=== PATIENT | female | born 1960 | race African-American/Black ===

== ENCOUNTER 2017-04-25 16:10 | Inpatient (IN) | payer MEDICAID, OTHER ==
[~2017-04-25] VITALS: Ht 154.9 cm; Wt 87.7 kg
[2017-04-25 16:10] VITALS: BP 185/75; PULSE 118; RESP 16; TEMP 99; O2SAT 100
[~2017-04-25 16:10] MED LIST: ATOR40TA49 PO; BENZ1TAB PO; CLOZ100T3 PO; COMBAER INH; DOCU1CAP39 PO; GLIP10TA6 PO; HYDR50TA94 PO; LISI-360 PO; NORV5TAB PO; OMEP20TA PO; PANT20 PO; PRAV80 PO; RISP2TAB2 PO; RISP50P IM
[2017-04-25] MEDS ORDERED: HALOPERIDOL LACTATE 5 MG/ML AMP IM ONE (16:30)
[2017-04-25] MEDS ORDERED: diphenhydrAMINE HCL 50 MG/ML VIAL IM ONE (16:30)
[2017-04-25] MEDS ORDERED: LORazepam 2 MG/ML VIAL IM ONE (16:30)
[2017-04-25 16:37] LABS: AUTOMATED NEUTROPHIL # 9.8 TH/MM3 (1.8-7.7); BASOPHIL # 0.1 TH/MM3 (0-0.2); BASOPHIL % 0.7 % (0.0-2.0); EOSINOPHIL # 0.2 TH/MM3 (0-0.4); EOSINOPHIL % 1.5 % (0.0-4.0); HEMATOCRIT 33.6 % (35.0-46.0); LYMPH % 24.1 % (9.0-44.0); LYMPHOCYTE # 3.5 TH/MM3 (1.0-4.8); MEAN CELL VOLUME 86.6 FL (80.0-100.0); MEAN CORPUSCULAR HEMOGLOBIN 28.5 PG (27.0-34.0); MEAN CORPUSCULAR HGB CONC 32.9 % (32.0-36.0); MONO % 5.7 % (0.0-8.0); PLATELET COUNT 317 TH/MM3 (150-450); RED BLOOD COUNT 3.88 MIL/MM3 (4.00-5.30); RED CELL DISTRIBUTION WIDTH 15.4 % (11.6-17.2); WHITE BLOOD COUNT 14.3 TH/MM3 (4.0-11.0)
[2017-04-25] MEDS ORDERED: diphenhydrAMINE HCL 50 MG/ML VIAL IV PUSH ONE (16:45)
[2017-04-25] MEDS ORDERED: LORazepam 2 MG/ML VIAL IV PUSH ONE (16:45)
[2017-04-25 16:46] LABS: HEMO FLAGS AUTO DIFF
[2017-04-25 16:56] LABS: ANION GAP 6 MEQ/L (5-15); AST (GOT) 23 U/L (15-37); BICARBONATE 24.5 MEQ/L (21.0-32.0); BLOOD UREA NITROGEN 16 MG/DL (7-18); CHLORIDE 110 MEQ/L (98-107); GLOMERULAR FILTRATION RATE 91 ML/MIN (>89); POTASSIUM 3.4 MEQ/L (3.5-5.1); SODIUM (NA) 140 MEQ/L (136-145)
[2017-04-25 16:57] LABS: ALT (GPT) 27 U/L (10-53)
[2017-04-25 17:07] LABS: ALKALINE PHOSPHATASE 130 U/L (45-117); TOTAL BILIRUBIN ADULT 0.1 MG/DL (0.2-1.0)
[2017-04-25 17:26] LABS: BLOOD, URINE NEG (NEG); COMMENT (UR) CULT NOT INDICATED; CULTURE IF INDICATED CULT NOT INDICATED; GLUCOSE,URINE NEG (NEG); KETONE, URINE NEG (NEG); NITRITE,URINE NEG (NEG); SQUAMOUS EPITHELIAL CELL URINE <1 /hpf (0-5); URINE COLOR LIGHT-YELLOW (YELLW/STRAW)
--- NOTE | 2017-04-25 17:45 | RADRPT ---
EXAM DATE/TIME: 04/25/2017 17:22 [place] COMPARISON: CT BRAIN W/O CONTRAST, November 12, 2012, 18:01. INDICATIONS : Altered mental status. Patient found wandering and babbling. RADIATION DOSE: 56.25 CTDIvol (mGy) ; Patient motion MEDICAL HISTORY : Hypertension. Cardiovascular disease SURGICAL HISTORY : None. ENCOUNTER: Initial ACUITY: 1 day PAIN SCALE: 5/10 LOCATION: cranial TECHNIQUE: Multiple contiguous axial images were obtained of the head. Using automated exposure control and adj ustment of the mA and/or kV according to patient size, radiation dose was kept as low as reasonably a chievable to obtain optimal diagnostic quality images. DICOM format image data is available electro nically for review and comparison. FINDINGS: CEREBRUM: The ventricles are normal for age. No evidence of midline shift, mass lesion, hemorrhage or acute in farction. No extra-axial fluid collections are seen. POSTERIOR FOSSA: The cerebellum and brainstem are intact. The 4th ventricle is midline. The cerebellopontine angle i s unremarkable. EXTRACRANIAL: The visualized portion of the orbits is intact. SKULL: The calvaria is intact. No evidence of skull fracture. CONCLUSION: Negative for an acute process. Arsenio Bloom MD FACR on April 25, 2017 at 17:42 Board Certified Radiologist. This report was verified electronically.
--- NOTE | 2017-04-25 17:53 | PD ---
HPI Chief Complaint: Altered Mental Status Time Seen by Provider: 16:18 Travel History International Travel<30 days: No Contact w/Intl Traveler<30days: No Traveled to known affect area: No History of Present Illness HPI This is a 56-year-old female with a history of schizophrenia, presents here with acute felix. The patient was apparently found acting acutely psychotic in a place of business. EMS was called and transferred her here. Patient came in with tangential thoughts. She has flight of ideas. She had hyperreligious thoughts and was using profanity. She was unable to answer questions whether she is taking her medications or not. No further history could be elicited. PFSH Past Medical History Arthritis: No Asthma: Yes Autoimmune Disease: No Blood Disorders: No Anxiety: Yes Depression: Yes Heart Rhythm Problems: No Cancer: No Cardiovascular Problems: No High Cholesterol: Yes Chest Pain: No Congestive Heart Failure: No COPD: No Cerebrovascular Accident: No Coronary Artery Disease: Yes Diabetes: No Diminished Hearing: No Endocrine: No GERD: No Glaucoma: No Genitourinary: No Headaches: No Hepatitis: No Hiatal Hernia: No Hypertension: Yes Immune Disorder: No Implanted Vascular Access Dvce: No Kidney Stones: No Musculoskeletal: No Neurologic: No Psychiatric: Yes Reproductive: No Respiratory: No Immunizations Current: No Myocardial Infarction: No Renal Failure: No Schizophrenia: Yes Seizures: Yes Sleep Apnea: No Thyroid Disease: No Triglycerides - High: Yes Ulcer: No PNEUMOCCOCAL Vaccine (Year): 2008 Menopausal: Yes : 4 Para: 3 Miscarriage: 1 Past Surgical History Abdominal Surgery: No AICD: No Body Medical Devices: VASCULAR ACCESS DEVICE Cardiac Surgery: No Section: Yes Ear Surgery: No Endocrine Surgery: No Eye Surgery: No Genitourinary Surgery: No Gynecologic Surgery: Yes (HYSTERECTOMY) Hysterectomy: Yes Oral Surgery: No Pacemaker: No Thoracic Surgery: No Social History Alcohol Use: No Tobacco Use: No Substance Use: No Allergies-Medications (Allergen,Severity, Reaction): Coded Allergies: acetaminophen (Unverified Allergy, Severe, 04/12/17) penicillin G (Unverified Allergy, Severe, 04/12/17) propoxyphene (Unverified Allergy, Unknown, 04/12/17) Reported Meds & Prescriptions Reported Meds & Active Scripts Active Reported Clozaril (Clozapine) 100 Mg Tab 25 Mg PO DAILY Colace 100 Mg Cap (Docusate Sodium) 100 Mg Cap 100 Mg PO BID Cogentin (Benztropine Mesylate) 1 Mg Tab 1 Mg PO BID take one half tablet Norvasc (Amlodipine Besylate) 5 Mg Tab 5 Mg PO DAILY Glipizide 10 Mg Tab 10 Mg PO BID TAKE BEFORE MEALS Pravastatin Sodium 80 Mg Tab 1 Tab PO HS Clozaril (Clozapine) 100 Mg Tab 100 Mg PO DAILY take 1 in the morning, take 2 at night time Omeprazole 20 mg (Omeprazole) 20 Mg Tab 20 Mg PO DAILY Lisinopril 10 mg (Lisinopril) 10 Mg Tab 10 Mg PO DAILY Hydroxyzine Hcl (Hydroxyzine HCl) 50 Mg Tab 1-2 Tab PO HS Combivent (Albuterol/Ipratropium) 14.7 Gm Aer 2 Puff INH QID Cogentin (Benztropine Mesylate) 1 Mg Tab 1 Mg PO BID Risperdal Consta (Risperidone) 50 Mg/2 Ml Inj 50 Mg IM Q14D *FOR INTRAMUSCULAR USE ONLY* Lipitor 40 Mg Tab (Atorvastatin Calcium) 40 Mg Tab 40 Mg PO DAILY Protonix (Pantoprazole Sodium) 20 Mg Tab 20 Mg PO DAILY Norvasc (Amlodipine Besylate) 5 Mg Tab 5 Mg PO DAILY Risperdal (Risperidone) 2 Mg Tab 2 Mg PO BID Lisinopril 10 Mg Tab 10 Mg PO DAILY Review of Systems ROS Limitations: Psychotic (unable to obtain secondary to psychosis.) Except as stated in HPI: all other systems reviewed are Neg Physical Exam Narrative GENERAL: Well-developed well-nourished female in no acute respiratory distress. The patient was obviously psychotic and had hyperreligious ideology and profanity. SKIN: Focused skin assessment warm/dry. HEAD: Atraumatic. Normocephalic. EYES: Pupils equal and round. No scleral icterus. No injection or drainage. ENT: No nasal bleeding or discharge. Mucous membranes pink and moist. NECK: Trachea midline. Supple. CARDIOVASCULAR: Tachycardic with a rate of 106 and normal rhythm. No murmur appreciated. RESPIRATORY: No accessory muscle use. Clear to auscultation. Breath sounds equal bilaterally. GASTROINTESTINAL: Abdomen soft, non-tender, nondistended. MUSCULOSKELETAL: No obvious deformities. No clubbing. No cyanosis. No edema. NEUROLOGICAL: Awake and alert. No obvious cranial nerve deficits. Motor grossly within normal limits. Normal speech. PSYCHIATRIC: Psychotic with tangential thoughts. Data Data Last Documented VS Vital Signs Date Time Temp Pulse Resp B/P (MAP) Pulse Ox O2 Delivery O2 Flow Rate FiO2 04/25/17 18:07 96 17 169/74 (105) 98 04/25/17 16:15 Room Air 04/25/17 16:10 99.0 Orders Orders Complete Blood Count With Diff (04/25/17 16:21) Comprehensive Metabolic Panel (04/25/17 16:21) Thyroid Stimulating Hormone (04/25/17 16:21) Urinalysis - C+S If Indicated (04/25/17 16:21) Electrocardiogram (04/25/17 16:21) Psych Screen (04/25/17 16:21) Haloperidol Inj (Haldol Inj) (04/25/17 16:30) Lorazepam Inj (Ativan Inj) (04/25/17 16:30) Drug Screen, Random Urine (04/25/17 16:21) Ct Brain W/O Iv Contrast(Rout) (04/25/17 16:21) Diphenhydramine Inj (Benadryl Inj) (04/25/17 16:30) Diphenhydramine Inj (Benadryl Inj) (04/25/17 16:45) Lorazepam Inj (Ativan Inj) (04/25/17 16:45) Enalaprilat Inj (Vasotec Inj) (04/25/17 18:00) Potassium Chloride (Kcl) (04/25/17 18:00) Labs Laboratory Tests Test 04/25/17 16:25 04/25/17 17:00 White Blood Count 14.3 TH/MM3 Red Blood Count 3.88 MIL/MM3 Hemoglobin 11.1 GM/DL Hematocrit 33.6 % Mean Corpuscular Volume 86.6 FL Mean Corpuscular Hemoglobin 28.5 PG Mean Corpuscular Hemoglobin Concent 32.9 % Red Cell Distribution Width 15.4 % Platelet Count 317 TH/MM3 Mean Platelet Volume 7.1 FL Neutrophils (%) (Auto) 68.0 % Lymphocytes (%) (Auto) 24.1 % Monocytes (%) (Auto) 5.7 % Eosinophils (%) (Auto) 1.5 % Basophils (%) (Auto) 0.7 % Neutrophils # (Auto) 9.8 TH/MM3 Lymphocytes # (Auto) 3.5 TH/MM3 Monocytes # (Auto) 0.8 TH/MM3 Eosinophils # (Auto) 0.2 TH/MM3 Basophils # (Auto) 0.1 TH/MM3 CBC Comment AUTO DIFF Differential Total Cells Counted 100 Neutrophils % (Manual) 56 % Band Neutrophils % 5 % Lymphocytes % 29 % Monocytes % 4 % Eosinophils % 4 % Neutrophils # (Manual) 9.0 TH/MM3 Metamyelocytes 2 % Differential Comment FINAL DIFF MANUAL Platelet Estimate NORMAL Platelet Morphology Comment NORMAL Red Cell Morphology Comment NORMAL Blood Urea Nitrogen 16 MG/DL Creatinine 0.79 MG/DL Random Glucose 157 MG/DL Total Protein 7.3 GM/DL Albumin 3.3 GM/DL Calcium Level 8.5 MG/DL Alkaline Phosphatase 130 U/L Aspartate Amino Transf (AST/SGOT) 23 U/L Alanine Aminotransferase (ALT/SGPT) 27 U/L Total Bilirubin 0.1 MG/DL Sodium Level 140 MEQ/L Potassium Level 3.4 MEQ/L Chloride Level 110 MEQ/L Carbon Dioxide Level 24.5 MEQ/L Anion Gap 6 MEQ/L Estimat Glomerular Filtration Rate 91 ML/MIN Thyroid Stimulating Hormone 3rd Gen 1.030 uIU/ML Urine Color LIGHT-YELLOW Urine Turbidity CLEAR Urine pH 5.0 Urine Specific [place] 1.010 Urine Protein NEG mg/dL Urine Glucose (UA) NEG mg/dL Urine Ketones NEG mg/dL Urine Occult Blood NEG Urine Nitrite NEG Urine Bilirubin NEG Urine Urobilinogen LESS THAN 2.0 MG/DL Urine Leukocyte Esterase NEG Urine RBC LESS THAN 1 /hpf Urine WBC LESS THAN 1 /hpf Urine Squamous Epithelial Cells <1 /hpf Microscopic Urinalysis Comment CULT NOT INDICATED Urine Opiates Screen NEG Urine Barbiturates Screen NEG Urine Amphetamines Screen NEG Urine Benzodiazepines Screen NEG Urine Cocaine Screen NEG Urine Cannabinoids Screen NEG [facility] Medical Decision Making Medical Screen Exam Complete: Yes Emergency Medical Condition: Yes Differential Diagnosis Acute psychosis versus metabolic derangement versus medication noncompliance Narrative Course This is a 56-year-old female with a history of schizophrenia, presents here with acute psychosis. The patient is noted to be acutely psychotic with hyperreligious thought processes. She is cooperative and amenable to psychiatric evaluation. She did mention 1400 previously. Her potassium was 3.2. She was given 10 mg by mouth 1 dose. She was sedated with Haldol and Ativan and Benadryl. She is resting comfortably. She'll be medically clear for psychiatric evaluation. Diagnosis Primary Impression: Acute psychosis Additional Impressions: History of schizophrenia mild hypokalemia Diabetes mellitus medically clear Sloan Linder MD Apr 25, 2017 17:53
[2017-04-25 17:55] LABS: BANDS 5 % (0-6); EOSINOPHILS 4 % (0-4); METAMYELOCYTES 2 % (0-1); POLYS (SEG NEUTROPHILS) 56 % (16-70); WBC DIFF SAMPLE 100
[2017-04-25 17:56] LABS: PLATELET ESTIMATE SMEAR NORMAL (NORMAL); PLATELET MORPHOLOGY NORMAL (NORMAL); SCAN/DIFF FINAL DIFF MANUAL
[2017-04-25] MEDS ORDERED: ENALAPRILAT 2.5 MG/2 ML VIAL IV PUSH ONE (18:00)
[2017-04-25] MEDS ORDERED: POTASSIUM CHLORIDE 10 MEQ CONTROLLED RELEASE TAB PO ONE (18:00)
[2017-04-25 18:07] VITALS: BP 169/74; PULSE 96; RESP 17; O2SAT 98
[2017-04-25 19:13] VITALS: BP 135/68; PULSE 97; RESP 20; O2SAT 100
[2017-04-25] MEDS ORDERED: ASPI81CH37 CHEW (22:14)
[2017-04-25] MEDS ORDERED: CLOZ100 PO (22:14)
[2017-04-25] MEDS ORDERED: ARTIDRO EACH EYE (22:14)
[2017-04-25] MEDS ORDERED: LISI10TA3 PO (22:14)
[2017-04-25] MEDS ORDERED: AMLO5 PO (22:14)
[2017-04-25] MEDS ORDERED: COLA100C PO (22:14)
[2017-04-25] MEDS ORDERED: OMEP20TA PO (22:14)
[2017-04-25] MEDS ORDERED: GLUC10TA3 PO (22:14)
[2017-04-25] MEDS ORDERED: PRAV80TA2 PO (22:14)
[2017-04-25] MEDS ORDERED: CLOZ25 PO (22:14)
[2017-04-26 02:45] VITALS: BP 130/73; PULSE 102; RESP 18; O2SAT 100
[2017-04-26 07:05] VITALS: BP 133/78; PULSE 76; RESP 17; TEMP 97.8; O2SAT 99
[2017-04-26 11:00] VITALS: BP 124/76; PULSE 76; RESP 17; TEMP 97.9; O2SAT 99
--- NOTE | 2017-04-26 13:11 | EKG ---
Date Performed: 04/25/2017 Time Performed: 16:30:23 PTAGE: 56 years EKG: SINUS TACHYCARDIA NONSPECIFIC T-WAVE ABNORMALITY ABNORMAL RHYTHM ECG PREVIOUS TRACING : 10/13/2014 14.58 Compared to prior tracing no significant change DOCTOR: Stefanie Pastrana Interpretating Date/Time 04/26/2017 13:10:47
--- NOTE | 2017-04-26 13:30 | PD ---
History of Present Illness Chief Complaint: Altered Mental Status Time Seen by Provider: 13:00 Travel History International Travel<30 Days: No Contact w/Intl Traveler<30days: No Known affected area: No Legal Status Legal Status: Voluntary History of Present Illness: History of Present Illness HPI This is a 56-year-old female with a history of schizophrenia, known to [facility] from previous admissions who was found in a place of business acting strangely. As per paperwork with patient she was discharged from [facility] on April 15, 2017. It is unclear if she has been medication compliance. Lives in a care home but no other info available. She required an ETO in the Ed. EKG and CT of head completed while in ED and as part of medication clearance. Negative toxicology. The patient is acutely psychotic. She is hyperverbal and easily agitated, religiously and sexually preoccupied. She talks about "[place] , having sex with Khalif. I talk with Tia. Clozaril is for dogs and fleas . The evil one says it's ok fro me to be evil now and then. Is that a ring on your finger? I like rings and the rain. Are you going to take care of my achy breaky heart?. Her speech is loud. Due to her mental status I am unable to obtain any clinical information from her or engage her in a logical goal directed conversation conversation at this time. Patient will be placed under a professional certificate as she is requesting to be " let go from here to my house" and I believe she requires inpatient treatment at this time for safety. PFSH Past Medical History Arthritis: No Asthma: Yes Autoimmune Disease: No Blood Disorders: No Anxiety: Yes Depression: Yes Heart Rhythm Problems: No Cancer: No Cardiovascular Problems: No High Cholesterol: Yes Chest Pain: No Congestive Heart Failure: No COPD: No Cerebrovascular Accident: No Coronary Artery Disease: Yes Diabetes: No Diminished Hearing: No Endocrine: No GERD: No Glaucoma: No Genitourinary: No Headaches: No Hepatitis: No Hiatal Hernia: No Hypertension: Yes Immune Disorder: No Implanted Vascular Access Dvce: No Kidney Stones: No Musculoskeletal: No Neurologic: No Psychiatric: Yes Reproductive: No Respiratory: No Immunizations Current: No Myocardial Infarction: No Renal Failure: No Schizophrenia: Yes Seizures: Yes Sleep Apnea: No Thyroid Disease: No Triglycerides - High: Yes Ulcer: No PNEUMOCCOCAL Vaccine (Year): 2008 Menopausal: Yes : 4 Para: 3 Miscarriage: 1 Past Surgical History Abdominal Surgery: No AICD: No Body Medical Devices: VASCULAR ACCESS DEVICE Cardiac Surgery: No Section: Yes Ear Surgery: No Endocrine Surgery: No Eye Surgery: No Genitourinary Surgery: No Gynecologic Surgery: Yes (HYSTERECTOMY) Hysterectomy: Yes Oral Surgery: No Pacemaker: No Thoracic Surgery: No Psychiatric History Psychiatric History Hx Psychiatric Treatment: LONG HISTORY OF SCHIZOPHRENIA WITH DELUSIONAL BELIEFS. SHE HAS REQUIRED [facility] AND [facility] LEVEL OF CARE. Discharged from [facility] History of Inpatient Treatment: Yes Guns or firearms in home: No Social History Currently living in care home. No other info available Hx Alcohol Use: No Hx Tobacco Use: No Hx Substance Use: No Substance Use Type: Alcohol, Nicotine/Cigarettes Other Substances Used: PAST HISTORY Hx of Substance Use Treatment: No Family Psychiatric History Unable to obtain Allergies-Medications (Allergen,Severity, Reaction): Coded Allergies: acetaminophen (Unverified Allergy, Severe, 04/12/17) penicillin G (Unverified Allergy, Severe, 04/12/17) propoxyphene (Unverified Allergy, Unknown, 04/12/17) Reported Meds & Prescriptions Reported Meds & Active Scripts Active Reported Glucotrol (Glipizide) 10 Mg Tab 10 Mg PO BIDAC Take 30 minutes before a meal Aspirin Low Dose (Aspirin) 81 Mg Chew 81 Mg CHEW DAILY Artificial Tears Opth Drops (Propylene Glycol-Glycerin Opth Drops) 1-0.3% Drops 1 Drop EACH EYE BID PRN Omeprazole 20 Mg Tab 20 Mg PO DAILY Lisinopril 10 Mg Tab 10 Mg PO DAILY Norvasc (Amlodipine Besylate) 5 Mg Tab 5 Mg PO DAILY Pravastatin 80 Mg Tab 80 Mg PO DAILY Colace (Docusate Sodium) 100 Mg Capsule 200 Mg PO BID Clozaril (Clozapine) 100 Mg Tab 200 Mg PO BID Clozaril (Clozapine) 25 Mg Tab 25 Mg PO BID Review of Systems ROS Limitations: Psychotic Exam Alert: Yes [place]: Person (only) Mood: Other (labile) Affect: Other (variable, non congruent) Speech: Illogical, Flight of Ideas Eye Contact: Staring Memory Intact: Comment (Not tetsed) Hallucinations: Other (Appears to be responding to internally stimuli) Delusions: Yes Delusion Type: Other Suicidal: Ideation (unable to assess) Homicidal: Ideation (unable to assess) Insight/Judgement None. Poor MDM Medical Decision Making Medical Record Reviewed: Yes Assessment/Plan This is a 56-year-old female with a history of schizophrenia, known to [facility] from previous admissions who was found in a place of business acting strangely. Patient is psychotic at this time and requires increase in level of care for further evaluation and to maintain safety. Orders Orders Complete Blood Count With Diff (04/25/17 16:21) Comprehensive Metabolic Panel (04/25/17 16:21) Thyroid Stimulating Hormone (04/25/17 16:21) Urinalysis - C+S If Indicated (04/25/17 16:21) Electrocardiogram (04/25/17 16:21) Psych Screen (04/25/17 16:21) Haloperidol Inj (Haldol Inj) (04/25/17 16:30) Lorazepam Inj (Ativan Inj) (04/25/17 16:30) Drug Screen, Random Urine (04/25/17 16:21) Ct Brain W/O Iv Contrast(Rout) (04/25/17 16:21) Diphenhydramine Inj (Benadryl Inj) (04/25/17 16:30) Diphenhydramine Inj (Benadryl Inj) (04/25/17 16:45) Lorazepam Inj (Ativan Inj) (04/25/17 16:45) Enalaprilat Inj (Vasotec Inj) (04/25/17 18:00) Potassium Chloride (Kcl) (04/25/17 18:00) Diet Regular Basic (04/26/17 Breakfast) Results Vital Signs Date Time Temp Pulse Resp B/P (MAP) Pulse Ox O2 Delivery O2 Flow Rate FiO2 04/26/17 12:15 04/26/17 11:00 97.9 76 17 124/76 (92) 99 Room Air 04/26/17 07:05 76 17 99 04/26/17 07:05 97.8 76 17 133/78 (96) 99 Room Air 04/26/17 02:45 102 18 130/73 (92) 100 Room Air 04/25/17 19:13 97 20 135/68 (90) 100 Room Air 04/25/17 18:07 96 17 169/74 (105) 98 04/25/17 16:15 115 15 99 Room Air 04/25/17 16:10 99.0 118 16 185/75 (111) 100 Laboratory Tests Test 04/25/17 16:25 04/25/17 17:00 White Blood Count 14.3 Red Blood Count 3.88 Hemoglobin 11.1 Hematocrit 33.6 Mean Corpuscular Volume 86.6 Mean Corpuscular Hemoglobin 28.5 Mean Corpuscular Hemoglobin Concent 32.9 Red Cell Distribution Width 15.4 Platelet Count 317 Mean Platelet Volume 7.1 Neutrophils (%) (Auto) 68.0 Lymphocytes (%) (Auto) 24.1 Monocytes (%) (Auto) 5.7 Eosinophils (%) (Auto) 1.5 Basophils (%) (Auto) 0.7 Neutrophils # (Auto) 9.8 Lymphocytes # (Auto) 3.5 Monocytes # (Auto) 0.8 Eosinophils # (Auto) 0.2 Basophils # (Auto) 0.1 CBC Comment AUTO DIFF Differential Total Cells Counted 100 Neutrophils % (Manual) 56 Band Neutrophils % 5 Lymphocytes % 29 Monocytes % 4 Eosinophils % 4 Neutrophils # (Manual) 9.0 Metamyelocytes 2 Differential Comment FINAL DIFF MANUAL Platelet Estimate NORMAL Platelet Morphology Comment NORMAL Red Cell Morphology Comment NORMAL Blood Urea Nitrogen 16 Creatinine 0.79 Random Glucose 157 Total Protein 7.3 Albumin 3.3 Calcium Level 8.5 Alkaline Phosphatase 130 Aspartate Amino Transf (AST/SGOT) 23 Alanine Aminotransferase (ALT/SGPT) 27 Total Bilirubin 0.1 Sodium Level 140 Potassium Level 3.4 Chloride Level 110 Carbon Dioxide Level 24.5 Anion Gap 6 Estimat Glomerular Filtration Rate 91 Thyroid Stimulating Hormone 3rd Gen 1.030 Urine Color LIGHT-YELLOW Urine Turbidity CLEAR Urine pH 5.0 Urine Specific [place] 1.010 Urine Protein NEG Urine Glucose (UA) NEG Urine Ketones NEG Urine Occult Blood NEG Urine Nitrite NEG Urine Bilirubin NEG Urine Urobilinogen LESS THAN 2.0 Urine Leukocyte Esterase NEG Urine RBC LESS THAN 1 Urine WBC LESS THAN 1 Urine Squamous Epithelial Cells <1 Microscopic Urinalysis Comment CULT NOT INDICATED Urine Opiates Screen NEG Urine Barbiturates Screen NEG Urine Amphetamines Screen NEG Urine Benzodiazepines Screen NEG Urine Cocaine Screen NEG Urine Cannabinoids Screen NEG Diagnosis Primary Impression: schizophrenia Admitting Information Admitting Physician Requests: Admit Neisha Kinney Apr 26, 2017 13:30
[2017-04-26] MEDS ORDERED: MAGNESIUM HYDROXIDE SUSP 30 ML CUP PO PRN (14:00)
[2017-04-26] MEDS ORDERED: ALUMINUM/MAGNESIUM/SIMETH 30 ML CUP PO PRN (14:00)
[2017-04-26 14:27] VITALS: BP 124/76; PULSE 76; RESP 17; O2SAT 99
[2017-04-26] MEDS ORDERED: cloNIDine HCL 0.1 MG TAB PO PRN (15:00)
[2017-04-26 15:36] VITALS: BP 176/98; PULSE 100; RESP 18; TEMP 96.3; O2SAT 98
[2017-04-26] MEDS: glipiZIDE 10 MG TAB PO SCH ×2 (16:00→21:18)
--- NOTE | 2017-04-26 18:14 | PD.CONS ---
HPI Service [facility] Hospitalists Consult Requested By Primary Care Physician Unknown Diagnoses: History of Present Illness Written by Pily Benites, acting as scribe for Dr. Andres on 04/26/17 at 17:48. Ms. Araya is a 56-year-old female patient with a known medical history of schizophrenia with delusions, dyslipidemia and hypertension who presented to the ED with acute psychosis and admitted to psych unit. Hospitalist team has been consulted for hypertensive management and medical management. Patient is seen in the 2700 psych unit, lying in bed sleeping. Awakens to voice and acutely delusional, appears to have active hallucinations, with scrambled speech and no consistent thoughts and easily agitated. Patient questioned regarding orientation, patient unable to provide name, place, time or situation. Patient is a poor historian and much of the medical history obtained from medical records. Patient with multiple admissions for schizophrenia with last admission being in 2014. Supposedly patient was discharged from [facility] in mid March and since then medication compliance and further information is unavailable. Review of Systems ROS Limitations: Clinical Condition, Uncooperative, Psychotic Psychiatric: COMPLAINS OF: Mood changes, Hallucinations, Delusions Past Family Social History Allergies: Coded Allergies: acetaminophen (Unverified Allergy, Severe, 04/12/17) penicillin G (Unverified Allergy, Severe, 04/12/17) propoxyphene (Unverified Allergy, Unknown, 04/12/17) Past Medical History Asthma Anxiety Dyslipidemia CAD Hypertension Seizures Schizophrenia Reported Medications Reported Meds & Active Scripts Active Reported Glucotrol (Glipizide) 10 Mg Tab 10 Mg PO BIDAC Take 30 minutes before a meal Aspirin Low Dose (Aspirin) 81 Mg Chew 81 Mg CHEW DAILY Artificial Tears Opth Drops (Propylene Glycol-Glycerin Opth Drops) 1-0.3% Drops 1 Drop EACH EYE BID PRN Omeprazole 20 Mg Tab 20 Mg PO DAILY Lisinopril 10 Mg Tab 10 Mg PO DAILY Norvasc (Amlodipine Besylate) 5 Mg Tab 5 Mg PO DAILY Pravastatin 80 Mg Tab 80 Mg PO DAILY Colace (Docusate Sodium) 100 Mg Capsule 200 Mg PO BID Clozaril (Clozapine) 100 Mg Tab 200 Mg PO BID Clozaril (Clozapine) 25 Mg Tab 25 Mg PO BID Active Ordered Medications Current Medications Medications (Trade) Dose Ordered Sig/Tori Route Start Time Stop Time Status Last Admin (Milk Of Magnesia Liq) 30 ml DAILY PRN PO 04/26/17 14:00 (Mag-Al Plus Susp Liq) 30 ml Q6H PRN PO 04/26/17 14:00 (Norvasc) 5 mg DAILY PO 04/27/17 09:00 (Aspirin Chew) 81 mg DAILY CHEW 04/27/17 09:00 (Clozaril) 25 mg BID PO 04/26/17 21:00 (Clozaril) 200 mg BID PO 04/26/17 21:00 (Glucotrol) 10 mg BIDAC PO 04/26/17 16:00 04/26/17 16:00 (Prinivil) 10 mg DAILY PO 04/27/17 09:00 (Pravachol) 80 mg DAILY PO 04/27/17 09:00 (Catapres) 0.1 mg Q8HR PRN PO 04/26/17 15:00 04/26/17 16:08 Family History Unable to obtain from patient. Social History Unable to obtain from patient. Physical Exam Vital Signs Vital Signs Date Time Temp Pulse Resp B/P (MAP) Pulse Ox O2 Delivery O2 Flow Rate FiO2 04/26/17 15:36 96.3 100 18 176/98 (124) 98 04/26/17 14:52 04/26/17 14:27 76 17 124/76 (92) 99 Room Air 04/26/17 12:15 04/26/17 11:00 97.9 76 17 124/76 (92) 99 Room Air 04/26/17 07:05 76 17 99 04/26/17 07:05 97.8 76 17 133/78 (96) 99 Room Air 04/26/17 02:45 102 18 130/73 (92) 100 Room Air 04/25/17 19:13 97 20 135/68 (90) 100 Room Air 04/25/17 18:07 96 17 169/74 (105) 98 Physical Exam GENERAL: This is a well-nourished, well-developed female patient, in no apparent distress. SKIN: No rashes, ecchymoses or lesions. Warm and dry. HEAD: Atraumatic. Normocephalic. No temporal or scalp tenderness. EYES: Pupils equal round and reactive. Extraocular motions intact. No scleral icterus. No injection or drainage. ENT: Nose without bleeding. Airway patent. NECK: Trachea midline. No JVD or lymphadenopathy. Supple, nontender, no meningeal signs. CARDIOVASCULAR: Sinus tachycardia. No murmur appreciated. No gallops, or rubs. RESPIRATORY: Clear to auscultation. Breath sounds equal bilaterally with fair air entry. No wheezes, rales, or rhonchi. GASTROINTESTINAL: Abdomen soft, non-tender, nondistended, obese. No guarding. MUSCULOSKELETAL: Extremities without clubbing, cyanosis, or edema. No joint tenderness, effusion, or edema noted. NEUROLOGICAL: Awake and active hallucinations. Motor and sensory grossly within normal limits. Five out of 5 muscle strength in all muscle groups. Scrambled speech. Result Diagram: 04/25/17 1625 04/25/17 162 Imaging Last Impressions Head CT 04/25/171620 Signed Impressions: Service Date/Time: Tuesday, April 25, 2017 17:22 - CONCLUSION: Negative for an acute process. Arsenio Bloom MD FACR Assessment and Plan Assessment and Plan Ms. Araya is a 56-year-old female patient with a known medical history of schizophrenia with delusions, dyslipidemia and hypertension who presented to the ED with acute psychosis and admitted to psych unit. Hospitalist team has been consulted for hypertensive management and medical management. Schizophrenia - Management per psychiatry team. Currently on Clozapine. - Head CT done and reviewed showing no acute process. Hypokalemia: K 3.4. Status post replacement with 10 meq. Will repeat BMP in am. Follow. Sinus tachycardia: HR in the 100's at rest. Will place on Lopressor 12.5 mg PO. Monitor HR. Hold parameters. Hypertension: Last BP 170's. Patient on Lisinopril 10 mg PO Daily, Amlodipine 5 mg PO daily. Clonidine available PRN. Type 2 diabetes mellitus: Random glucose 157. Will check Hemoglobin A1c. Follow. Will place on ACCU checks with sliding scale coverage, cover as needed. Will continue home glipizide. Leukocytosis: Unknown etiology. WBC 14.3 on presentation. Afebrile. UA negative. No signs of infection. Will continue to monitor. Will repeat CBC in am. Follow. Normocytic, normochromic anemia: Hemoglobin 11.1/Hematocrit 33.6. No active bleeding. Will repeat CBC in am. Follow. Dyslipidemia: Continue home Pravastatin. Thank you for this consultation. Will follow with you. This note was transcribed by scribe [Pily Benites]. I, Dr. Karen Andres personally performed the history, physical exam, and medical decision making; and confirmed the accuracy of the information in the transcribed note. Authenticated by Dr. Karen Andres on 04/26/17 at 18:02. Pily Benites Apr 26, 2017 18:14 Karen Andres MD Apr 26, 2017 18:31
[2017-04-26] MEDS ORDERED: GLUCAGON 1 MG/ML VIAL OTHER PRN (18:15)
[2017-04-26] MEDS ORDERED: DEXTROSE 50% IN WATER 50 ML VIAL(D50) IV PRN (18:15)
[2017-04-26] MEDS ORDERED: PILL SPLITTER OTHER PRN (18:45)
[2017-04-26] MEDS: INSULIN ASPART SUPPLEMENTAL SCALE SQ SCH (21:00)
[2017-04-26] MEDS: cloZAPine 25 MG TAB PO SCH (21:04)
[2017-04-26] MEDS: cloZAPine 100 MG TAB PO SCH (21:04)
[2017-04-26] MEDS: METOPROLOL TARTRATE 25 MG TAB PO SCH (21:07)
[2017-04-26 22:03] LABS: HEMOGLOBIN A1a 1.3 %; HEMOGLOBIN A1b 0.6 %; HEMOGLOBIN F 1.5 %; HEMOGLOBIN LA1C 1.1 %; HEMOGLOBIN P3 2.2 %
[2017-04-27 06:26] VITALS: BP 90/50; PULSE 87; RESP 18; TEMP 98.7; O2SAT 97
[2017-04-27 08:27] VITALS: BP 117/55; PULSE 96
[2017-04-27] MEDS: cloZAPine 100 MG TAB PO SCH ×2 (08:29→20:57)
[2017-04-27] MEDS: cloZAPine 25 MG TAB PO SCH ×2 (08:29→20:57)
[2017-04-27] MEDS: LISINOPRIL 10 MG TAB PO SCH (08:30)
[2017-04-27] MEDS: amLODIPine BESYLATE 5 MG TAB PO SCH (08:30)
[2017-04-27] MEDS: PRAVASTATIN SOD 80 MG TAB PO SCH (08:30)
[2017-04-27] MEDS: METOPROLOL TARTRATE 25 MG TAB PO SCH ×2 (08:31→20:56)
[2017-04-27] MEDS: ASPIRIN 81 MG CHEW TAB CHEW SCH (08:31)
[2017-04-27 10:16] LABS: AUTOMATED NEUTROPHIL # 6.7 TH/MM3 (1.8-7.7); BASOPHIL # 0.1 TH/MM3 (0-0.2); BASOPHIL % 0.9 % (0.0-2.0); EOSINOPHIL # 0.3 TH/MM3 (0-0.4); EOSINOPHIL % 2.5 % (0.0-4.0); HEMATOCRIT 32.8 % (35.0-46.0); HEMO FLAGS DIFF FINAL; LYMPH % 27.1 % (9.0-44.0); LYMPHOCYTE # 2.8 TH/MM3 (1.0-4.8); MEAN CELL VOLUME 87.9 FL (80.0-100.0); MEAN CORPUSCULAR HEMOGLOBIN 29.3 PG (27.0-34.0); MEAN CORPUSCULAR HGB CONC 33.3 % (32.0-36.0); MONO % 4.7 % (0.0-8.0); NEUT % 64.8 % (16.0-70.0); PLATELET COUNT 297 TH/MM3 (150-450); RED BLOOD COUNT 3.73 MIL/MM3 (4.00-5.30); RED CELL DISTRIBUTION WIDTH 15.4 % (11.6-17.2); WHITE BLOOD COUNT 10.4 TH/MM3 (4.0-11.0)
[2017-04-27 10:36] LABS: ANION GAP 9 MEQ/L (5-15); BICARBONATE 27.1 MEQ/L (21.0-32.0); BLOOD UREA NITROGEN 14 MG/DL (7-18); CHLORIDE 106 MEQ/L (98-107); GLOMERULAR FILTRATION RATE 91 ML/MIN (>89); HDL CHOLESTEROL 57.1 MG/DL (40.0-60.0); LDL CHOLESTEROL 73 MG/DL (0-99); POTASSIUM 4.3 MEQ/L (3.5-5.1); SODIUM (NA) 142 MEQ/L (136-145)
--- NOTE | 2017-04-27 10:56 | HHI.HP ---
Provisional Diagnosis Admission Date Apr 26, 2017 at 13:51 [place] I. 1. Schizophrenia, paranoid type, acute exacerbation [place] II. Deferred Certification of Person's Competence To Provide Express and Informed Consent I have personally examined Cierra Araya , a person being served at [facility] on, Apr 27, 2017 10:56. Express and informed consent means consent voluntarily given in writing, by a competent person, after sufficient explanation and disclosure of the subject matter involved to enable the person to make a knowing and willful decision without any element of force, fraud, deceit, duress, or other form of constraint or coercion. This person is 18 years of age or older, is not now known to be incompetent to consent to treatment with a guardian advocate, and does not have a health care surrogate or proxy currently making medical treatment decisions. I have found this person to be one of the following: [] Competent to provide express and informed consent, as defined above, for voluntary admission to this facility and is competent to provide express and informed consent for treatment. He/she has the consistent capacity to make well reasoned, willful, and knowing decisions concerning his or her medical or mental health treatment. The person fully and consistently understands the purpose of the admission for examination/placement and is fully capable of personally exercising all rights assured [place] [x] Incompetent to provide express and informed consent to voluntary admission, and this is incompetent to provide express and informed consent to treatment. The person must be transferred to involuntary status and a petition for a guardian advocate filed with the Circuit Court. [] Refusing to provide express and informed consent to voluntary admission but is competent to provide express and informed consent for treatment. The person must be discharged or transferred to involuntary status. Form shall be completed within 24 hours of a person's arrival at the receiving facility and filed in the clinical record of each person: 1. Admitted on a voluntary basis 2. Permitted to provide express and informed consent to his/her own treatment 3. Allowed to transfer from involuntary to voluntary status 4. Prior to permitting a person to consent to his or her own treatment after having been previously found incompetent to consent to treatment. History of Present Illness Capacity: Lacks Capacity HPI Ms. Araya is a 56-year-old female with a lengthy history of schizophrenia who presented initially voluntarily from her senior care and was placed under a Perez act in the ED. Reviewing the electronic medical record, I note the patient has multiple prior psychiatric admissions within our system most recently under Dr. Teran in September 2014, at which time she [facility]. Patient seen and examined with nurse. Chart reviewed. Case discussed with nursing staff. On my examination today, the patient presents as psychotic and tangential. She is religiously preoccupied. She tells me, "I'm a child of God and I'm sick to and I'm here. I was on the railroad tracks and the train came." When I ask about SI, patient says, "I probably would [kill herself] if I weren't in this room. I would drink a lot of juice and pop booty." When I ask how we can assist her, she tells me, "the staff told me to get my booty here or I ." Also tells me, "I ate some shit and I ." No HI voiced. Appears frankly internally stimulated and tells me, "I see Khalif and my spirit, but I'm not him. I'm him sometimes." Does not describe any CAH. Affect somewhat expansive. History is limited because of her thought disorder. Patient unable to provide meaningful past psychiatric, family, chemical dependency history at this time because of her thought disorder. She is able to tell me by way of social history that she is with 3 children. She has a 10th grade education and is currently on disability. Review of Systems ROS Limitations: Psychotic, Poor Historian Except as stated in HPI: all other systems reviewed are Neg Past Psych History Psychological trauma history No reported trauma history to me Violence risk - others (6 mos) Indeterminate. Patient is psychotic and unpredictable. Violence risk - self (6 mos) Indeterminate. Alludes to possible suicidal ideation. Patient is psychotic and unpredictable. Substance Abuse History Drugs/Alcohol past 12 months Urine toxicology negative. Patient unable to provide. Past Family Social History Coded Allergies: acetaminophen (Unverified Allergy, Severe, 04/12/17) penicillin G (Unverified Allergy, Severe, 04/12/17) propoxyphene (Unverified Allergy, Unknown, 04/12/17) Past Medical History See electronic medical record Reported Medications Glipizide (Glucotrol) 10 Mg Tab, 10 MG PO BIDAC for Blood Sugar Management, #60 TAB 0 Refills Take 30 minutes before a meal 04/25/17 Aspirin (Aspirin Low Dose) 81 Mg Chew, 81 MG CHEW DAILY, TAB 0 Refills 04/25/17 Propylene Glycol-Glycerin Opth Drops (Artificial Tears Opth Drops) 1-0.3% Drops , 1 DROP EACH EYE BID Y for DRY EYE, #15 ML 0 Refills 04/25/17 Omeprazole (Omeprazole) 20 Mg Tab, 20 MG PO DAILY, #30 TAB 0 Refills 04/25/17 Lisinopril (Lisinopril) 10 Mg Tab, 10 MG PO DAILY, #30 TAB 0 Refills 04/25/17 Amlodipine (Norvasc) 5 Mg Tab, 5 MG PO DAILY for Blood Pressure Management, #30 TAB 0 Refills 04/25/17 Pravastatin (Pravastatin) 80 Mg Tab, 80 MG PO DAILY for Cholesterol Management, #30 TAB 0 Refills 04/25/17 Docusate Sodium (Colace) 100 Mg Capsule, 200 MG PO BID 04/25/17 Clozapine (Clozaril) 100 Mg Tab, 200 MG PO BID for Schizophrenia, TAB 0 Refills 04/25/17 Clozapine (Clozaril) 25 Mg Tab, 25 MG PO BID for Schizophrenia, TAB 0 Refills 04/25/17 Current Medications Medications (Trade) Dose Ordered Sig/Troi Route Start Time Stop Time Status Last Admin (Milk Of Magnesia Liq) 30 ml DAILY PRN PO 04/26/17 14:00 (Mag-Al Plus Susp Liq) 30 ml Q6H PRN PO 04/26/17 14:00 (Norvasc) 5 mg DAILY PO 04/27/17 09:00 04/27/17 08:30 (Aspirin Chew) 81 mg DAILY CHEW 04/27/17 09:00 04/27/17 08:31 (Clozaril) 25 mg BID PO 04/26/17 21:00 04/27/17 08:29 (Clozaril) 200 mg BID PO 04/26/17 21:00 04/27/17 08:29 (Glucotrol) 10 mg BIDAC PO 04/26/17 16:00 04/26/17 16:00 (Prinivil) 10 mg DAILY PO 04/27/17 09:00 04/27/17 08:30 (Pravachol) 80 mg DAILY PO 04/27/17 09:00 04/27/17 08:30 (Catapres) 0.1 mg Q8HR PRN PO 04/26/17 15:00 04/26/17 16:08 (D50w (Vial) Inj) 50 ml UNSCH PRN IV 04/26/17 18:15 (Glucagon Inj) 1 mg UNSCH PRN OTHER 04/26/17 18:15 (NovoLOG SUPPLEMENTAL SCALE) 1 ACHS SLIDING SCALE SQ 04/26/17 21:00 (Lopressor) 12.5 mg Q12HR PO 04/26/17 21:00 04/27/17 08:31 (Pill Splitter) 1 ea UNSCH PRN OTHER 04/26/17 18:45 Family History Patient unable to provide Social History patient unable to provide Patient's Strengths (min. 2) In a monitored setting. Verbally fluent. Physical Exam Physical exam completed by hospitalist application security consultant. On my examination today, the patient appears to be in no acute physical distress. No motor abnormalities noted. Labs and vitals reviewed: Vital Signs Vital Signs Date Time Temp Pulse Resp B/P (MAP) Pulse Ox O2 Delivery O2 Flow Rate FiO2 04/27/17 08:27 96 117/55 (75) 04/27/17 06:26 98.7 18 97 04/26/17 14:27 Room Air Lab Results Item Value Date Time White Blood Count 10.4 TH/MM3 04/27/17 0839 Hemoglobin 10.9 GM/DL L 04/27/17 0839 Platelet Count 297 TH/MM3 04/27/17 0839 Neutrophils # (Auto) 6.7 TH/MM3 04/27/17 0839 Sodium Level 142 MEQ/L 04/27/17 0839 Potassium Level 4.3 MEQ/L # 04/27/17 0839 Chloride Level 106 MEQ/L 04/27/17 0839 Carbon Dioxide Level 27.1 MEQ/L 04/27/17 0839 Blood Urea Nitrogen 14 MG/DL 04/27/17 0839 Creatinine 0.79 MG/DL 04/27/17 0839 Estimat Glomerular Filtration Rate 91 ML/MIN 04/27/17 0839 Aspartate Amino Transf (AST/SGOT) 23 U/L 04/25/17 1625 Alanine Aminotransferase (ALT/SGPT) 27 U/L 04/25/17 1625 Alkaline Phosphatase 130 U/L H 04/25/17 1625 Thyroid Stimulating Hormone 3rd Gen 1.030 uIU/ML 04/25/17 1625 Hemoglobin A1c 6.3 % H 04/25/17 1625 Urine Opiates Screen NEG 04/25/17 1700 Urine Barbiturates Screen NEG 04/25/17 1700 Urine Amphetamines Screen NEG 04/25/17 1700 Urine Benzodiazepines Screen NEG 04/25/17 1700 Urine Cocaine Screen NEG 04/25/17 1700 Urine Cannabinoids Screen NEG 04/25/17 1700 ANC is adequate for Clozaril therapy. QTc 428ms. UA bland. Mental Status Examination Patient is in hospital gown. She is somewhat disheveled but appears to be maintaining basic hygiene. She is awake and alert and oriented to person at least. No motor abnormalities noted. Speech is rambling and difficult to follow. Language and fund of knowledge seem approximately average. Focus and concentration quite scattered. Memory difficult to assess because of her psychosis. Mood and affect is somewhat expansive. Thought process tangential. Associations somewhat loose. Temple delusions noted. Appears frankly internally preoccupied. Describes some vague suicidality but no homicidal ideation. Insight and judgment are quite poor. Assessment & Plan Problem List: (1) Schizophrenia ICD Codes: F20.9 - Schizophrenia, unspecified Assessment & Plan This is a 56-year-old female with psychiatric history as detailed above who is presently admitted to the inpatient psychiatric unit under a Perez act. Patient presents with evidence of psychotic decompensation including A/V hallucinations, thought disorder and nondenominational delusions. Unclear if there may be a component of medication nonadherence. Patient requires psychiatric hospitalization at this time for safety, observation and stabilization. Admit inpatient. Involuntary status. I completed first opinion. Consult for second opinion. Request healthcare surrogate and guardian advocate. Hospitalist following along, and I appreciate their input. For psychosis I will titrate the patient's Clozaril to 250 mg twice daily. Trend CBC weekly. Haldol as needed for psychotic agitation, Ativan as needed for anxiety, Cogentin as needed for EPS, Ambien as needed for sleep. Vitals every shift. Counselor to see and obtain collateral. Disposition planning. Estimated length of stay: 7-9 days. Discharge Planning return to facility once psychiatrically stabilized Request HC Surrog/Guard Advoc?: Yes Problem Qualifiers (1) Schizophrenia: Qualified Codes: F20.0 - Paranoid schizophrenia Isiah Rockwell MD Apr 27, 2017 10:56
[2017-04-27] MEDS: INSULIN ASPART SUPPLEMENTAL SCALE SQ SCH ×3 (11:00→21:00)
[2017-04-27 11:09] LABS: HEMOGLOBIN A1a 1.2 %; HEMOGLOBIN A1b 0.6 %; HEMOGLOBIN Ao 53.2 %; HEMOGLOBIN F 1.5 %; HEMOGLOBIN LA1C 1.4 %; HEMOGLOBIN P3 2.3 %
--- NOTE | 2017-04-27 11:33 | HHI.PR ---
Subjective Remarks Patient sleeping woke up to verbal stimuli She still not a good historian but she looks comfortable not able to answer any question coherently Objective Vitals Vital Signs Date Time Temp Pulse Resp B/P (MAP) Pulse Ox O2 Delivery O2 Flow Rate FiO2 04/27/17 08:27 96 117/55 (75) 04/27/17 06:26 98.7 87 18 90/50 (63) 97 04/26/17 15:36 96.3 100 18 176/98 (124) 98 04/26/17 14:52 04/26/17 14:27 76 17 124/76 (92) 99 Room Air 04/26/17 12:15 I/O 04/26/17 04/26/17 04/26/17 04/27/17 04/27/17 04/27/17 07:00 15:00 23:00 07:00 15:00 23:00 Intake Total 300 ml Balance 300 ml Intake Oral 300 ml # Voids 1 # Bowel Movements 0 Result Diagram: 04/27/1739 04/27/1739 Objective Remarks GENERAL: This is a well-nourished, well-developed female patient, in no apparent distress. SKIN: No rashes, ecchymoses or lesions. Warm and dry. HEAD: Atraumatic. Normocephalic. No temporal or scalp tenderness. EYES: Pupils equal round and reactive. Extraocular motions intact. No scleral icterus. No injection or drainage. ENT: Nose without bleeding. Airway patent. NECK: Trachea midline. No JVD or lymphadenopathy. Supple, nontender, no meningeal signs. CARDIOVASCULAR: Sinus tachycardia. No murmur appreciated. No gallops, or rubs. RESPIRATORY: Clear to auscultation. Breath sounds equal bilaterally with fair air entry. No wheezes, rales, or rhonchi. GASTROINTESTINAL: Abdomen soft, non-tender, nondistended, obese. No guarding. MUSCULOSKELETAL: Extremities without clubbing, cyanosis, or edema. No joint tenderness, effusion, or edema noted. NEUROLOGICAL: Awake and active hallucinations noncoherent,. Motor and sensory grossly within normal limits. Five out of 5 muscle strength in all muscle groups. Scrambled speech. A/P Assessment and Plan Ms. Araya is a 56-year-old female patient with a known medical history of schizophrenia with delusions, dyslipidemia and hypertension who presented to the ED with acute psychosis and admitted to psych unit. Hospitalist team has been consulted for hypertensive management and medical management. Schizophrenia - Management per psychiatry team. Currently on Clozapine. - Head CT done and reviewed showing no acute process. Hypokalemia: K 3.4. Status post replacement with 10 meq. repeat BMP in am. Follow. Sinus tachycardia: Improved on Lopressor 12.5 mg PO. Monitor HR. Hold parameters. Hypertension: Last BP 170's. Patient on Lisinopril 10 mg PO Daily, Amlodipine 5 mg PO daily. Clonidine available PRN. Type 2 diabetes mellitus: Random glucose 157. Hemoglobin A1c 6.3. Follow. ACCU checks with sliding scale coverage, cover as needed. home glipizide. Leukocytosis: Unknown etiology. WBC 14.3 on presentation. Afebrile. UA negative. No signs of infection. continue to monitor. repeat CBC in am. Follow. Normocytic, normochromic anemia: Hemoglobin 11.1/Hematocrit 33.6. No active bleeding. repeat CBC in am. Follow. Dyslipidemia: Continue home Pravastatin. Karen Andres MD Apr 27, 2017 11:33
[2017-04-27] MEDS ORDERED: HALOPERIDOL LACTATE 5 MG/ML AMP IM PRN (12:45)
[2017-04-27] MEDS ORDERED: HALOPERIDOL 5 MG TAB PO PRN (12:45)
[2017-04-27] MEDS ORDERED: ZOLPIDEM TARTRATE 5 MG TAB PO PRN (12:45)
[2017-04-27] MEDS ORDERED: BENZTROPINE MESYLATE 2 MG/2 ML VIAL IM PRN (12:45)
[2017-04-27] MEDS ORDERED: BENZTROPINE MESYLATE 1 MG TAB PO PRN (12:45)
[2017-04-27] MEDS ORDERED: LORazepam 2 MG TAB PO PRN (12:45)
[2017-04-27] MEDS ORDERED: LORazepam 2 MG/ML VIAL IM PRN (12:45)
[2017-04-27 16:03] VITALS: BP 90/50; PULSE 87; RESP 19; TEMP 98.7; O2SAT 97
[2017-04-27] MEDS: glipiZIDE 10 MG TAB PO SCH (16:20)
[2017-04-28 05:50] VITALS: BP 121/76; PULSE 97; RESP 18; TEMP 98.3; O2SAT 99
[2017-04-28] MEDS: INSULIN ASPART SUPPLEMENTAL SCALE SQ SCH ×4 (06:30→20:35)
[2017-04-28] MEDS: glipiZIDE 10 MG TAB PO SCH ×2 (07:00→16:11)
--- NOTE | 2017-04-28 08:07 | PD.PSY.CON ---
Provisional Diagnosis Admission Date Apr 26, 2017 at 13:51 Orosi I. 1. Schizophrenia, paranoid type, acute exacerbation Orosi II. Deferred History of Present Illness Service Psychiatry Consult Requested By Dr. rockwell Reason for Consult Second opinion petition Perez act Primary Care Physician Unknown HPI Ms. Araya is a 56-year-old female with a lengthy history of schizophrenia who presented initially voluntarily from her halfway and was placed under a Perez act in the ED. Reviewing the electronic medical record, I note the patient has multiple prior psychiatric admissions within our system most recently under Dr. Teran in September 2014, at which time she was transferred to the [facility]. Patient seen and examined with nurse. Chart reviewed. Case discussed with nursing staff. On my examination today, the patient presents as psychotic and tangential. She is religiously preoccupied. She tells me, "I'm a child of God and I'm sick to and I'm here. [place] was on the railroad tracks and the train came." When I ask about SI, patient says, "I probably would [kill herself] if I weren't in this room. I would drink a lot of juice and pop booty." When I ask how we can assist her, she tells me, "the staff told me to get my booty here or I ." Also tells me, "I ate some shit and I ." No HI voiced. Appears frankly internally stimulated and tells me, "I see Khalif and my spirit, but I'm not him. I'm him sometimes." Does not describe any CAH. Affect somewhat expansive. History is limited because of her thought disorder. Patient unable to provide meaningful past psychiatric, family, chemical dependency history at this time because of her thought disorder. She is able to tell me by way of social history that she is with 3 children. She has a 10th grade education and is currently on disability. 04/28/17 Above note dictated by Dr. Rockwell reviewed and agreed with. Patient seen by me in her room with nurse daily. Patient did recognize me from prior contacts. Acknowledges increase auditory hallucinations of command nature vague suicidal ideation is questionable compliance with the medication is also some confusion about residents the events going on there. dr del cid first opinion petition supporting Perez act. I agree. Patient meets criteria for involuntary psychiatric hospitalization under the Perez act. I will cosign second opinion petition supporting Perez act Past Family Social History Coded Allergies: acetaminophen (Unverified Allergy, Severe, 04/12/17) penicillin G (Unverified Allergy, Severe, 04/12/17) propoxyphene (Unverified Allergy, Unknown, 04/12/17) Reported Medications Glipizide (Glucotrol) 10 Mg Tab, 10 MG PO BIDAC for Blood Sugar Management, #60 TAB 0 Refills Take 30 minutes before a meal 04/25/17 Aspirin (Aspirin Low Dose) 81 Mg Chew, 81 MG CHEW DAILY, TAB 0 Refills 04/25/17 Propylene Glycol-Glycerin Opth Drops (Artificial Tears Opth Drops) 1-0.3% Drops , 1 DROP EACH EYE BID Y for DRY EYE, #15 ML 0 Refills 04/25/17 Omeprazole (Omeprazole) 20 Mg Tab, 20 MG PO DAILY, #30 TAB 0 Refills 04/25/17 Lisinopril (Lisinopril) 10 Mg Tab, 10 MG PO DAILY, #30 TAB 0 Refills 04/25/17 Amlodipine (Norvasc) 5 Mg Tab, 5 MG PO DAILY for Blood Pressure Management, #30 TAB 0 Refills 04/25/17 Pravastatin (Pravastatin) 80 Mg Tab, 80 MG PO DAILY for Cholesterol Management, #30 TAB 0 Refills 04/25/17 Docusate Sodium (Colace) 100 Mg Capsule, 200 MG PO BID 04/25/17 Clozapine (Clozaril) 100 Mg Tab, 200 MG PO BID for Schizophrenia, TAB 0 Refills 04/25/17 Clozapine (Clozaril) 25 Mg Tab, 25 MG PO BID for Schizophrenia, TAB 0 Refills 04/25/17 Current Medications Medications (Trade) Dose Ordered Sig/Tori Route Start Time Stop Time Status Last Admin (Milk Of Magnesia Liq) 30 ml DAILY PRN PO 04/26/17 14:00 (Mag-Al Plus Susp Liq) 30 ml Q6H PRN PO 04/26/17 14:00 (Norvasc) 5 mg DAILY PO 04/27/17 09:00 04/27/17 08:30 (Aspirin Chew) 81 mg DAILY CHEW 04/27/17 09:00 04/27/17 08:31 (Clozaril) 200 mg BID PO 04/26/17 21:00 04/27/17 20:57 (Glucotrol) 10 mg BIDAC PO 04/26/17 16:00 04/27/17 16:20 (Prinivil) 10 mg DAILY PO 04/27/17 09:00 04/27/17 08:30 (Pravachol) 80 mg DAILY PO 04/27/17 09:00 04/27/17 08:30 (Catapres) 0.1 mg Q8HR PRN PO 04/26/17 15:00 04/26/17 16:08 (D50w (Vial) Inj) 50 ml UNSCH PRN IV 04/26/17 18:15 (Glucagon Inj) 1 mg UNSCH PRN OTHER 04/26/17 18:15 (NovoLOG SUPPLEMENTAL SCALE) 1 ACHS SLIDING SCALE SQ 04/26/17 21:00 (Lopressor) 12.5 mg Q12HR PO 04/26/17 21:00 04/27/17 20:56 (Pill Splitter) 1 ea UNSCH PRN OTHER 04/26/17 18:45 (Clozaril) 50 mg BID PO 04/27/17 21:00 04/27/17 20:57 (Haldol) 5 mg Q6HR PRN PO 04/27/17 12:45 (Haldol Inj) 5 mg Q6H PRN IM 04/27/17 12:45 (Ativan) 2 mg Q6H PRN PO 04/27/17 12:45 (Ativan Inj) 2 mg Q6H PRN IM 04/27/17 12:45 (Cogentin) 1 mg Q12HR PRN PO 04/27/17 12:45 (Cogentin Inj) 1 mg Q12HR PRN IM 04/27/17 12:45 (Ambien) 5 mg HS PRN PO 04/27/17 12:45 Patient's Strengths (min. 2) In a monitored setting. Verbally fluent. Physical Exam Vital Signs Vital Signs Date Time Temp Pulse Resp B/P (MAP) Pulse Ox O2 Delivery O2 Flow Rate FiO2 04/28/17 05:50 98.3 97 18 121/76 (91) 99 04/26/17 14:27 Room Air Lab Results Test 04/27/17 08:39 White Blood Count 10.4 TH/MM3 Red Blood Count 3.73 MIL/MM3 Hemoglobin 10.9 GM/DL Hematocrit 32.8 % Mean Corpuscular Volume 87.9 FL Mean Corpuscular Hemoglobin 29.3 PG Mean Corpuscular Hemoglobin Concent 33.3 % Red Cell Distribution Width 15.4 % Platelet Count 297 TH/MM3 Mean Platelet Volume 8.0 FL Neutrophils (%) (Auto) 64.8 % Lymphocytes (%) (Auto) 27.1 % Monocytes (%) (Auto) 4.7 % Eosinophils (%) (Auto) 2.5 % Basophils (%) (Auto) 0.9 % Neutrophils # (Auto) 6.7 TH/MM3 Lymphocytes # (Auto) 2.8 TH/MM3 Monocytes # (Auto) 0.5 TH/MM3 Eosinophils # (Auto) 0.3 TH/MM3 Basophils # (Auto) 0.1 TH/MM3 CBC Comment DIFF FINAL Differential Comment Blood Urea Nitrogen 14 MG/DL Creatinine 0.79 MG/DL Random Glucose 118 MG/DL Calcium Level 9.4 MG/DL Sodium Level 142 MEQ/L Potassium Level 4.3 MEQ/L Chloride Level 106 MEQ/L Carbon Dioxide Level 27.1 MEQ/L Anion Gap 9 MEQ/L Estimat Glomerular Filtration Rate 91 ML/MIN Hemoglobin A1c 6.0 % Triglycerides Level 46 MG/DL Cholesterol Level 139 MG/DL LDL Cholesterol 73 MG/DL HDL Cholesterol 57.1 MG/DL Cholesterol/HDL Ratio 2.43 RATIO Mental Status Examination Alert somewhat confused stockily built Afro-[place]ian female calm cooperative guarded and vigilant Appearance Disheveled Speech: Hesitant, Circumstantial, Tangential Orientation: Person, Place Memory: Impaired (describe) (poor) Thought Process: Loose Association Thought Content: Paranoid, Ideas of Reference Language Poor Fund of Knowledge Poor Hallucination Type: Auditory Attention and Concentration: Other (poor) Suicidal Ideation: Yes (vague perhaps stimulated by auditory hallucinations) Previous Suicide Attempts: No Homicidal Ideation: No Previous Homicide Attempts: No Insight: Poor Judgment: Poor Affect: Other (decrease range increase intensity) Mood: Sad, Other (restricted) Motor Activity: Normal gait Assessment & Plan Problem List: (1) Schizophrenia ICD Codes: F20.9 - Schizophrenia, unspecified Assessment & Plan Estimated LOS: days Request HC Surrog/Guard Advoc?: Yes Problem Qualifiers (1) Schizophrenia: Qualified Codes: F20.0 - Paranoid schizophrenia Monster Ordonez MD Apr 28, 2017 08:07
[2017-04-28] MEDS: PRAVASTATIN SOD 80 MG TAB PO SCH (08:15)
[2017-04-28] MEDS: LISINOPRIL 10 MG TAB PO SCH (08:15)
[2017-04-28] MEDS: METOPROLOL TARTRATE 25 MG TAB PO SCH ×2 (08:15→20:38)
[2017-04-28] MEDS: cloZAPine 100 MG TAB PO SCH ×2 (08:15→20:38)
[2017-04-28] MEDS: amLODIPine BESYLATE 5 MG TAB PO SCH (08:16)
[2017-04-28] MEDS: cloZAPine 25 MG TAB PO SCH ×2 (08:16→20:38)
[2017-04-28] MEDS: ASPIRIN 81 MG CHEW TAB CHEW SCH (08:16)
--- NOTE | 2017-04-28 10:43 | HHI.PYPN ---
Subjective Remarks Patient seen and examined with nurse. Chart reviewed. Case discussed with nursing staff who reports that the patient is responding to internal stimuli but no behavioral problem. On my examination today, the patient tells me that she rested well overnight. She describes her outlook this morning as "blah blah." Besides making references occasionally to "the Spirit," little evidence of sabianist preoccupation. She does appear to be responding to internal stimuli. Denies SI or HI. Complains of a little bit of lightheadedness but otherwise no side effects from medications. No physical complaints otherwise. Review of Systems ROS Limitations: Psychotic, Poor Historian Except as stated in HPI: all other systems reviewed are Neg Objective Alert: Yes [place]: Person, Place Mood: Calm Affect: Blunted Memory Intact: Comment (not formally assessed) Hallucinations: Other (internally preoccupied) Delusions: Yes Delusion Type: Other (suspect ongoing paranoia and sabianist preoccupation, perhaps lessening) Suicidal: Ideation (denies SI) Homicidal: Ideation (denies HI) Insight/Judgment Poor Remarks No motoric abnormalities noted. Thought process fairly linear. Grooming and hygiene fair. Labs Labs reviewed. Vitals/IOs Vital Signs Date Time Temp Pulse Resp B/P (MAP) Pulse Ox O2 Delivery O2 Flow Rate FiO2 04/28/17 05:50 98.3 97 18 121/76 (91) 99 04/26/17 14:27 Room Air Assessment & Plan Problem List: (1) Schizophrenia ICD Codes: F20.9 - Schizophrenia, unspecified Assessment & Plan Continue clozapine 250mg BID. Check orthostatics. Fall prec. Patient cautioned on safe standing. Could consider further titration of clozapine if needed and depending on degree of orthostasis. Hospitalist input noted and appreciated. Continue to monitor on the high acuity unit. Continue other medications and care as ordered. Justification for Cont. Inpt. High risk for decompensation in less restrictive environment. Discharge Planning Pending psychiatric stabilization Request HC Surrog/Guard Advoc?: Yes Problem Qualifiers (1) Schizophrenia: Qualified Codes: F20.0 - Paranoid schizophrenia Isiah Rockwell MD Apr 28, 2017 10:43
[2017-04-28 16:22] VITALS: BP 116/63; PULSE 92; RESP 18; TEMP 99.1; O2SAT 100
[2017-04-28 16:23] VITALS: BP 117/63; PULSE 95
[2017-04-28 16:24] VITALS: BP 108/59; PULSE 97
--- NOTE | 2017-04-28 16:53 | HHI.PR ---
Subjective Remarks No acute issue, patient definitely not a good historian, but she looks comfortable, WBC resolved, blood pressure blood glucose better Objective Vitals Vital Signs Date Time Temp Pulse Resp B/P (MAP) Pulse Ox O2 Delivery O2 Flow Rate FiO2 04/28/17 16:24 97 108/59 (75) 04/28/17 16:23 95 117/63 (81) 04/28/17 16:22 99.1 92 18 116/63 (80) 100 04/28/17 05:50 98.3 97 18 121/76 (91) 99 Result Diagram: 04/27/1739 04/27/17838 Objective Remarks GENERAL: This is a well-nourished, well-developed female patient, in no apparent distress. SKIN: No rashes, ecchymoses or lesions. Warm and dry. HEAD: Atraumatic. Normocephalic. No temporal or scalp tenderness. EYES: Pupils equal round and reactive. Extraocular motions intact. No scleral icterus. No injection or drainage. ENT: Nose without bleeding. Airway patent. NECK: Trachea midline. No JVD or lymphadenopathy. Supple, nontender, no meningeal signs. CARDIOVASCULAR: Sinus tachycardia. No murmur appreciated. No gallops, or rubs. RESPIRATORY: Clear to auscultation. Breath sounds equal bilaterally with fair air entry. No wheezes, rales, or rhonchi. GASTROINTESTINAL: Abdomen soft, non-tender, nondistended, obese. No guarding. MUSCULOSKELETAL: Extremities without clubbing, cyanosis, or edema. No joint tenderness, effusion, or edema noted. NEUROLOGICAL: Awake and active hallucinations noncoherent,. Motor and sensory grossly within normal limits. Five out of 5 muscle strength in all muscle groups. Scrambled speech. A/P Assessment and Plan Ms. Araya is a 56-year-old female patient with a known medical history of schizophrenia with delusions, dyslipidemia and hypertension who presented to the ED with acute psychosis and admitted to psych unit. Hospitalist team has been consulted for hypertensive management and medical management. Schizophrenia - Management per psychiatry team. Currently on Clozapine. - Head CT done and reviewed showing no acute process. Hypokalemia: Improved Status post replacement Sinus tachycardia: Improved on Lopressor 12.5 mg PO. Monitor HR. Hold parameters. Hypertension: Improved. Patient on Lisinopril 10 mg PO Daily, Amlodipine 5 mg PO daily. Clonidine available PRN. Type 2 diabetes mellitus: Random glucose 157. Hemoglobin A1c 6.3. Follow. ACCU checks with sliding scale coverage, cover as needed. home glipizide. Leukocytosis: Resolved mostly stress,.. Afebrile. UA negative. No signs of infection. continue to monitor. repeat CBC in am. Follow. Normocytic, normochromic anemia: Hemoglobin 11.1/Hematocrit 33.6. No active bleeding. repeat CBC in am. Follow. Dyslipidemia: Continue home Pravastatin. We'll sign off and be available when necessary Karen Andres MD Apr 28, 2017 16:53
[2017-04-29 06:03] VITALS: BP 99/56; PULSE 99; RESP 18; TEMP 98.7; O2SAT 97
[2017-04-29 06:04] VITALS: BP_SYST 109; BP_SYST 128; BP_DIAS 56; BP_DIAS 80; PULSE 56; PULSE 95
[2017-04-29] MEDS: INSULIN ASPART SUPPLEMENTAL SCALE SQ SCH (06:33)
[2017-04-29] MEDS: glipiZIDE 10 MG TAB PO SCH ×2 (06:39→16:09)
[2017-04-29] MEDS: ASPIRIN 81 MG CHEW TAB CHEW SCH (08:07)
[2017-04-29] MEDS: cloZAPine 25 MG TAB PO SCH (08:07)
[2017-04-29] MEDS: METOPROLOL TARTRATE 25 MG TAB PO SCH ×2 (08:07→21:00)
[2017-04-29] MEDS: PRAVASTATIN SOD 80 MG TAB PO SCH (08:07)
[2017-04-29] MEDS: amLODIPine BESYLATE 5 MG TAB PO SCH (08:07)
[2017-04-29] MEDS: cloZAPine 100 MG TAB PO SCH (08:08)
[2017-04-29] MEDS: LISINOPRIL 10 MG TAB PO SCH (08:52)
--- NOTE | 2017-04-29 10:07 | HHI.PYPN ---
Subjective Remarks Patient seen and examined with nurse. Chart reviewed. Case discussed with nurse. Per RN, ate breakfast this morning and went immediately back to bed. Nurse noted some flight of ideas. On my exam, patient seems a little sleepy. She insists that she took her clozapine as prescribed prior to admission. She says that she is talking with Khalif but does not seem distressed by this. No delusions. No SI/HI. No other side effects from meds. No physical complaints. Review of Systems ROS Limitations: Poor Historian Except as stated in HPI: all other systems reviewed are Neg Objective Alert: Yes [place]: Person, Place Mood: Calm Affect: Blunted (remains blunted) Memory Intact: Comment (not formally assessed) Hallucinations: Other (perhaps a little less int stim) Delusions: No Delusion Type: Other (No delusions) Suicidal: Ideation (No SI) Homicidal: Ideation (No HI) Insight/Judgment Poor Remarks No motor abnormalities noted. Thought processes fairly linear. Grooming and hygiene fair. Labs Labs reviewed. Vitals/IOs Vital Signs Date Time Temp Pulse Resp B/P (MAP) Pulse Ox O2 Delivery O2 Flow Rate FiO2 04/29/17 06:04 56 109/56 (73) 04/29/17 06:03 98.7 18 97 04/26/17 14:27 Room Air Orthostatic vital signs reviewed. Pattern is erratic (e.g. pulse decreased with move from sitting to standing, BP increased from lying to sitting). Patient is perhaps somewhat orthostatic by BP sitting to standing. Assessment & Plan Problem List: (1) Schizophrenia ICD Codes: F20.9 - Schizophrenia, unspecified Assessment & Plan Try to adjust clozapine dosing to minimize daytime sedation. Patient already received 250mg clozapine this morning and so will continue with current dosing regimen today. Starting tomorrow, clozapine 200/300mg. CBC Tuesday. Bedside glucoses have essentially all been in normal range and patient has not required SSI. D/c Accuchecks. Hospitalist input appreciated. Continue to monitor on the high acuity unit. Continue other medications and care as ordered. Justification for Cont. Inpt. Risk for decompensation Discharge Planning Possible discharge after the weekend Request HC Surrog/Guard Advoc?: Yes Problem Qualifiers (1) Schizophrenia: Qualified Codes: F20.0 - Paranoid schizophrenia Isiah Rockwell MD Apr 29, 2017 10:07
[2017-04-29 15:34] VITALS: BP 124/67; PULSE 99; RESP 17; TEMP 98.5; O2SAT 99
[2017-04-29 15:35] VITALS: BP_SYST 105; BP_SYST 107; BP_DIAS 58; BP_DIAS 59; PULSE 104; PULSE 94
[2017-04-29] MEDS ORDERED: cloZAPine 100 MG TAB PO SCH (21:00)
[2017-04-30 06:07] VITALS: BP 120/86; PULSE 101; RESP 16; TEMP 98.3; O2SAT 99
[2017-04-30] MEDS: glipiZIDE 10 MG TAB PO SCH ×2 (06:31→16:00)
[2017-04-30] MEDS: PRAVASTATIN SOD 80 MG TAB PO SCH (07:59)
[2017-04-30] MEDS: ASPIRIN 81 MG CHEW TAB CHEW SCH (07:59)
[2017-04-30] MEDS: METOPROLOL TARTRATE 25 MG TAB PO SCH ×2 (07:59→20:24)
[2017-04-30] MEDS: LISINOPRIL 10 MG TAB PO SCH (07:59)
[2017-04-30] MEDS: cloZAPine 100 MG TAB PO SCH ×2 (07:59→20:24)
[2017-04-30] MEDS: amLODIPine BESYLATE 5 MG TAB PO SCH (08:00)
--- NOTE | 2017-04-30 18:17 | HHI.PYPN ---
Subjective Remarks Patient was seen and case discussed with nursing. Patient interviewed in bed. Patient minimally interactive, laying with eyes closed. Describes auditory hallucinations are "somewhat." Talking was Khalif was telling her to get out. Compliant with medications and behaving well on the unit. Denies suicidal or homicidal ideation intent or plan Objective Alert: Yes [place]: Person, Place Mood: Calm Affect: Other (apathetic) Memory Intact: Comment (not formally assessed) Hallucinations: Auditory (to leave) Delusions: No Delusion Type: Other (No delusions) Suicidal: Ideation (No SI) Homicidal: Ideation (No HI) Insight/Judgment Poor Vitals/IOs Vital Signs Date Time Temp Pulse Resp B/P (MAP) Pulse Ox O2 Delivery O2 Flow Rate FiO2 04/30/17 06:07 98.3 101 16 120/86 (97) 99 04/26/17 14:27 Room Air Assessment & Plan Problem List: (1) Schizophrenia ICD Codes: F20.9 - Schizophrenia, unspecified Assessment & Plan Continue current treatment plan Justification for Cont. Inpt. Patient would decompensate in a less restrictive setting Request HC Surrog/Guard Advoc?: Yes Problem Qualifiers (1) Schizophrenia: Qualified Codes: F20.0 - Paranoid schizophrenia Isaac Membreno DO Apr 30, 2017 18:17
[2017-04-30 18:38] VITALS: BP 125/72; PULSE 100; RESP 18; TEMP 98.3; O2SAT 98
[2017-05-01 05:45] VITALS: BP 127/65; PULSE 94; RESP 18; TEMP 98.9; O2SAT 99
[2017-05-01] MEDS: glipiZIDE 10 MG TAB PO SCH ×2 (06:15→16:00)
[2017-05-01] MEDS: PRAVASTATIN SOD 80 MG TAB PO SCH (08:29)
[2017-05-01] MEDS: ASPIRIN 81 MG CHEW TAB CHEW SCH (08:29)
[2017-05-01] MEDS: METOPROLOL TARTRATE 25 MG TAB PO SCH ×2 (08:29→20:16)
[2017-05-01] MEDS: amLODIPine BESYLATE 5 MG TAB PO SCH (08:29)
[2017-05-01] MEDS: cloZAPine 100 MG TAB PO SCH ×2 (08:29→20:16)
[2017-05-01] MEDS: LISINOPRIL 10 MG TAB PO SCH (08:55)
--- NOTE | 2017-05-01 15:38 | HHI.PYPN ---
Subjective Remarks Patient was seen and case discussed with nursing. Patient again interviewed in bed. Per nursing she has been seclusive throughout the day. Patient appears flat and apathetic. He gives minimal responses has some difficulty understanding the questions. Delayed thought process. Likely responding from internal stimuli. Messages from [place] Objective Alert: Yes [place]: Person, Place Mood: Calm Affect: Blunted, Other (apathetic) Memory Intact: Comment (not formally assessed) Hallucinations: Auditory (Khalif) Delusions: No Delusion Type: Other (No delusions) Suicidal: Ideation (No SI) Homicidal: Ideation (No HI) Insight/Judgment Poor Vitals/IOs Vital Signs Date Time Temp Pulse Resp B/P (MAP) Pulse Ox O2 Delivery O2 Flow Rate FiO2 05/01/17 05:45 98.9 94 18 127/65 (85) 99 Assessment & Plan Problem List: (1) Schizophrenia ICD Codes: F20.9 - Schizophrenia, unspecified Assessment & Plan Continue current treatment plan Justification for Cont. Inpt. Patient would decompensate in a less restrictive setting Request HC Surrog/Guard Advoc?: Yes Problem Qualifiers (1) Schizophrenia: Qualified Codes: F20.0 - Paranoid schizophrenia Isaac Membreno DO May 01, 2017 15:38
[2017-05-01 18:00] VITALS: BP 100/95; PULSE 87; RESP 18; TEMP 98.2; O2SAT 99
[2017-05-02 05:45] VITALS: BP 132/65; PULSE 90; RESP 17; TEMP 98; O2SAT 99
[2017-05-02] MEDS: glipiZIDE 10 MG TAB PO SCH ×2 (06:03→16:10)
[2017-05-02] MEDS: amLODIPine BESYLATE 5 MG TAB PO SCH (08:58)
[2017-05-02] MEDS: LISINOPRIL 10 MG TAB PO SCH (08:58)
[2017-05-02] MEDS: PRAVASTATIN SOD 80 MG TAB PO SCH (08:58)
[2017-05-02] MEDS: cloZAPine 100 MG TAB PO SCH ×2 (08:58→21:42)
[2017-05-02] MEDS: ASPIRIN 81 MG CHEW TAB CHEW SCH (08:58)
[2017-05-02] MEDS: METOPROLOL TARTRATE 25 MG TAB PO SCH ×2 (09:00→21:42)
[2017-05-02 10:33] LABS: AUTOMATED NEUTROPHIL # 4.3 TH/MM3 (1.8-7.7); BASOPHIL % 0.6 % (0.0-2.0); EOSINOPHIL # 0.3 TH/MM3 (0-0.4); EOSINOPHIL % 3.4 % (0.0-4.0); HEMATOCRIT 34.5 % (35.0-46.0); HEMO FLAGS DIFF FINAL; LYMPH % 31.7 % (9.0-44.0); LYMPHOCYTE # 2.4 TH/MM3 (1.0-4.8); MEAN CELL VOLUME 88.2 FL (80.0-100.0); MEAN CORPUSCULAR HEMOGLOBIN 29.2 PG (27.0-34.0); MEAN CORPUSCULAR HGB CONC 33.1 % (32.0-36.0); MONO % 6.1 % (0.0-8.0); NEUT % 58.2 % (16.0-70.0); PLATELET COUNT 258 TH/MM3 (150-450); RED BLOOD COUNT 3.91 MIL/MM3 (4.00-5.30); WHITE BLOOD COUNT 7.5 TH/MM3 (4.0-11.0)
--- NOTE | 2017-05-02 12:47 | HHI.PYPN ---
Subjective Remarks Patient seen and examined with counselor and nurse. Chart reviewed. Case discussed with nurse and counselor. Counselor has tried to reach out to patient 's facility to discuss discharge back there today without success, perhaps related to the holiday. On my examination today, the patient is in good spirits. She denies any SI or HI. She does say that she is receiving messages from [employer] to "be good and go home." Calm and pleasant on exam. Denies side effects from medications. No physical complaints. Review of Systems ROS Limitations: Poor Historian Except as stated in HPI: all other systems reviewed are Neg Objective Alert: Yes [place]: Person, Place Mood: Calm Affect: Euthymic Memory Intact: Comment (not formally assessed) Hallucinations: Auditory (as above) Delusions: No Delusion Type: Other (yazidism preoccupation) Suicidal: Ideation (No SI) Homicidal: Ideation (No HI) Insight/Judgment Poor Remarks No motor abnormalities noted. Grooming and hygiene fair. Labs Test 05/02/17 09:30 White Blood Count 7.5 TH/MM3 Red Blood Count 3.91 MIL/MM3 Hemoglobin 11.4 GM/DL Hematocrit 34.5 % Mean Corpuscular Volume 88.2 FL Mean Corpuscular Hemoglobin 29.2 PG Mean Corpuscular Hemoglobin Concent 33.1 % Red Cell Distribution Width 15.0 % Platelet Count 258 TH/MM3 Mean Platelet Volume 7.9 FL Neutrophils (%) (Auto) 58.2 % Lymphocytes (%) (Auto) 31.7 % Monocytes (%) (Auto) 6.1 % Eosinophils (%) (Auto) 3.4 % Basophils (%) (Auto) 0.6 % Neutrophils # (Auto) 4.3 TH/MM3 Lymphocytes # (Auto) 2.4 TH/MM3 Monocytes # (Auto) 0.5 TH/MM3 Eosinophils # (Auto) 0.3 TH/MM3 Basophils # (Auto) 0.0 TH/MM3 CBC Comment DIFF FINAL Differential Comment Labs reviewed. ANC remains adequate for Clozaril therapy. Vitals/IOs Vital Signs Date Time Temp Pulse Resp B/P (MAP) Pulse Ox O2 Delivery O2 Flow Rate FiO2 05/02/17 05:45 98.0 90 17 132/65 (87) 99 Assessment & Plan Problem List: (1) Schizophrenia ICD Codes: F20.9 - Schizophrenia, unspecified Assessment & Plan Continue current psychotropics as ordered. Continue to monitor on the high acuity unit. Continue other medications and care as ordered. Justification for Cont. Inpt. Final discharge planning. Risk for decompensation. Discharge Planning Anticipate discharge tomorrow, Tuesday Request HC Surrog/Guard Advoc?: Yes Problem Qualifiers (1) Schizophrenia: Qualified Codes: F20.0 - Paranoid schizophrenia Isiah Rockwell MD May 02, 2017 12:47
[2017-05-02 17:49] VITALS: BP 129/58; PULSE 91; RESP 18; TEMP 98.4; O2SAT 99
[2017-05-03] MEDS: glipiZIDE 10 MG TAB PO SCH (06:09)
[2017-05-03 06:18] VITALS: BP 122/72; PULSE 90; RESP 18; TEMP 98.3; O2SAT 97
[2017-05-03] MEDS ORDERED: CLOZ100 PO ×2 (08:12)
[2017-05-03] MEDS ORDERED: METO25TA3 PO (08:12)
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
[2017-05-03] MEDS: ASPIRIN 81 MG CHEW TAB CHEW SCH (08:37)
[2017-05-03] MEDS: amLODIPine BESYLATE 5 MG TAB PO SCH (08:37)
[2017-05-03] MEDS: cloZAPine 100 MG TAB PO SCH (08:37)
[2017-05-03] MEDS: PRAVASTATIN SOD 80 MG TAB PO SCH (08:37)
[2017-05-03] MEDS: LISINOPRIL 10 MG TAB PO SCH (08:38)
[2017-05-03] MEDS: METOPROLOL TARTRATE 25 MG TAB PO SCH (09:00)
[2017-06-17] MEDS ORDERED: LISI10TA3 PO (12:16)
[2017-06-17] MEDS ORDERED: CLOZ200T PO (12:21)
[2017-06-17] MEDS ORDERED: GLIP10TA6 PO (12:21)
[2017-06-17] MEDS ORDERED: DEPA500T3 PO (12:22)
[2017-06-17] MEDS ORDERED: FERR325T8 PO (12:22)
== END 2017-05-03 14:40 | DRG 885 ==
LOC: NEPE 16:10 → NEDA 04-26 13:51 → H270 04-26 14:45
PROVIDERS: ADMIT Psychiatry & Neurology Psychiatry; ATTEND Psychiatry & Neurology Psychiatry
DX: F20.0 Paranoid schizophrenia (principal); E11.9 Type 2 diabetes mellitus without complications; I10 Essential (primary) hypertension; E87.6 Hypokalemia; E78.5 Hyperlipidemia, unspecified; D64.9 Anemia, unspecified; D72.829 Elevated white blood cell count, unspecified; J45.909 Unspecified asthma, uncomplicated; F41.9 Anxiety disorder, unspecified; I25.10 Atherosclerotic heart disease of native coronary artery without angina pectoris; R00.0 Tachycardia, unspecified; Z79.84 Long term (current) use of oral hypoglycemic drugs; Z79.899 Other long term (current) drug therapy
CPT/HCPCS: 70450; 80048; 80053; 80061; 80307; 81001; 82948; 83036; 84443; 85007; 85025; 85027; 93005; 96372; 96374; 96375; J1200; J1630; J1815; J2060

== ENCOUNTER 2017-05-05 22:43 | Emergency (ER) | payer SELFPAY ==
[~2017-05-05] VITALS: Ht 157.5 cm; Wt 90.0 kg
[~2017-05-05 22:43] MED LIST changes: +AMLO5 PO; +ARTIDRO EACH EYE; +ASPI81CH37 CHEW; -ATOR40TA49 PO; -BENZ1TAB PO; +CLOZ100 PO; -CLOZ100T3 PO; +COLA100C PO; -COMBAER INH; -DOCU1CAP39 PO; -GLIP10TA6 PO; +GLUC10TA3 PO; -HYDR50TA94 PO; -LISI-360 PO; +LISI10TA3 PO; +METO25TA3 PO; -NORV5TAB PO; -PANT20 PO; -PRAV80 PO; +PRAV80TA2 PO; -RISP2TAB2 PO; -RISP50P IM
[2017-05-05 22:51] VITALS: BP 148/84; PULSE 120; RESP 15; TEMP 99.2; O2SAT 98
[2017-05-06] MEDS ORDERED: LISI10TA3 PO (00:07)
[2017-05-06] MEDS ORDERED: OMEP20TA PO (00:07)
[2017-05-06] MEDS ORDERED: GLUC10TA3 PO (00:07)
[2017-05-06] MEDS ORDERED: METO25TA3 PO (00:07)
[2017-05-06] MEDS ORDERED: AMLO5 PO (00:07)
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
[2017-05-06] MEDS ORDERED: METOPROLOL TARTRATE 25 MG TAB PO ONE (00:15)
[2017-05-06 00:21] VITALS: BP 168/90; PULSE 112; RESP 18; O2SAT 100
[2017-06-17] MEDS ORDERED: LISI10TA3 PO (12:16)
[2017-06-17] MEDS ORDERED: GLIP10TA6 PO (12:21)
[2017-06-17] MEDS ORDERED: CLOZ200T PO (12:21)
[2017-06-17] MEDS ORDERED: DEPA500T3 PO (12:22)
[2017-06-17] MEDS ORDERED: FERR325T8 PO (12:22)
== END 2017-05-06 00:39 | disposition home or self-care (01) ==
LOC: NEPC 22:43
DX: R00.0 Tachycardia, unspecified (principal); E11.9 Type 2 diabetes mellitus without complications; I10 Essential (primary) hypertension; E78.5 Hyperlipidemia, unspecified; Z76.0 Encounter for issue of repeat prescription; Z79.84 Long term (current) use of oral hypoglycemic drugs; Z87.09 Personal history of other diseases of the respiratory system; Z86.59 Personal history of other mental and behavioral disorders; Z86.79 Personal history of other diseases of the circulatory system
CPT/HCPCS: 99284

== ENCOUNTER 2017-08-16 09:07 | Inpatient (IN) | payer OTHER ==
[~2017-08-16] VITALS: Ht 157.5 cm; Wt 98.2 kg
[~2017-08-16 09:07] MED LIST changes: -ASPI81CH37 CHEW; +ASPI81CH6 CHEW; -CLOZ100 PO; +CLOZ200T PO; -COLA100C PO; +COLA100C5 PO; +DEPA500T3 PO; +FERR325T18 PO; +GLIP10TA6 PO; -GLUC10TA3 PO; -OMEP20TA PO; +OMEP20TA93 PO
[2017-08-16 09:09] VITALS: BP 134/90; PULSE 112; RESP 18; TEMP 97.8; O2SAT 95
--- NOTE | 2017-08-16 09:47 | PD ---
HPI Chief Complaint: Psychiatric Symptoms Time Seen by Provider: 09:44 Travel History International Travel<30 days: No Contact w/Intl Traveler<30days: No Traveled to known affect area: No History of Present Illness HPI This is a 56-year-old female that was apparently dropped off voluntarily by her dye colorist dyer for psychological evaluation. On evaluation of the patient she states that her vagina hurts. She reports having sex yesterday "but it was not with Khalif." She says she is trying to get saved. She reports falling yesterday and she is here for medications. She also continues to state that she wants to be admitted to the [facility]. Denies suicidal ideation to the nurse and when I questioned her if her stated that "Khalif is not ready for her yet" then she says that she's had thoughts of suicide and her plan is to "screw her neck off." She reports smoking marijuana recently. Reports hearing voices and seeing things, stating that she "hears and sees the world around her." 0945: I called and spoke with the dye colorist dyer and she says the patient has been complaining that her butt has been hurting for the last 3 days and that she wants to go to the hospital and be admitted to the [facility]. Patient has history of schizophrenia and takes Depakote. She has refused to take her Depakote since Tuesday. The dye colorist dyer states she has had no mention of any suicide thought, recent sex, or fall. The dye colorist dyer says that she is manipulative and when she wants to be admitted she'll get admitted. The dye colorist dyer did make her an appointment to be seen on Tuesday by her primary care provider for her "butt pain" and the patient refused to go. Jacker Feeder states she most likely refused to go because she wanted to come to the ER, which she demanded this morning, so she could be admitted to psych. The dye colorist dyer states that she was so adamant about coming to the ER this morning that she brought her. She has history of diabetes and her primary care provider is Dr. Kramer. [facility] Past Medical History Arthritis: No Asthma: Yes Autoimmune Disease: No Blood Disorders: No Anxiety: Yes Depression: Yes Heart Rhythm Problems: No Cardiovascular Problems: Yes High Cholesterol: Yes Chest Pain: No Congestive Heart Failure: No COPD: No Cerebrovascular Accident: No Coronary Artery Disease: Yes Diminished Hearing: No Endocrine: No GERD: No Glaucoma: No Genitourinary: No Hepatitis: No Hiatal Hernia: No Hypertension: Yes Immune Disorder: No Implanted Vascular Access Dvce: No Kidney Stones: No Musculoskeletal: No Neurologic: No Psychiatric: Yes (long hx of schizophrenia) Reproductive: No Respiratory: No Immunizations Current: No Myocardial Infarction: No Renal Failure: No Schizophrenia: Yes Sleep Apnea: No Thyroid Disease: No Triglycerides - High: Yes Ulcer: No Tetanus Vaccination: Unknown PNEUMOCCOCAL Vaccine (Year): 2008 ?: Not Menopausal: Yes : 4 Para: 3 Miscarriage: 1 Past Surgical History Abdominal Surgery: No AICD: No Body Medical Devices: VASCULAR ACCESS DEVICE Cardiac Surgery: No Section: Yes Ear Surgery: No Endocrine Surgery: No Eye Surgery: No Genitourinary Surgery: No Gynecologic Surgery: Yes (HYSTERECTOMY) Hysterectomy: Yes Insulin Pump: No Oral Surgery: No Pacemaker: No Thoracic Surgery: No Social History Alcohol Use: No Tobacco Use: No Substance Use: No Allergies-Medications (Allergen,Severity, Reaction): Coded Allergies: acetaminophen (Unverified Allergy, Severe, 08/16/17) penicillin G (Unverified Allergy, Severe, 08/16/17) propoxyphene (Unverified Allergy, Unknown, 08/16/17) Reported Meds & Prescriptions Reported Meds & Active Scripts Active Metoprolol Tartrate 25 Mg Tab 12.5 Mg PO Q12HR 15 Days Omeprazole 20 Mg Tab 20 Mg PO DAILY Norvasc (Amlodipine Besylate) 5 Mg Tab 5 Mg PO DAILY Reported Ferrous Sulfate 325 Mg (65 Mg Iron) Tablet 325 Mg PO BIDPC Depakote ER (Divalproex Sodium) 500 Mg Skylar 1,000 Mg PO DAILY Clozapine 200 Mg Tab 300 Mg PO BID Glipizide 10 Mg Tab 10 Mg PO BIDAC Take 30 minutes before a meal Lisinopril 10 Mg Tab 10 Mg PO DAILY Aspirin Low Dose (Aspirin) 81 Mg Chew 81 Mg CHEW DAILY Artificial Tears Opth Drops (Propylene Glycol-Glycerin Opth Drops) 1-0.3% Drops 1 Drop EACH EYE BID PRN Pravastatin 80 Mg Tab 80 Mg PO DAILY Colace (Docusate Sodium) 100 Mg Capsule 200 Mg PO BID Review of Systems Except as stated in HPI: all other systems reviewed are Neg Physical Exam Narrative GENERAL: Well-nourished, well-developed black female patient, in no acute distress SKIN: Warm and dry. HEAD: Atraumatic. Normocephalic. EYES: Pupils equal and round. ENT: Mucosa pink and moist. NECK: Supple. Trachea midline. CARDIOVASCULAR: Regular rate and rhythm. No murmur appreciated. RESPIRATORY: No accessory muscle use. Clear to auscultation. Breath sounds equal bilaterally. GASTROINTESTINAL: Abdomen soft, non-tender, nondistended. Hepatic and splenic margins not palpable. Bowel sounds are active 4 quadrants. MUSCULOSKELETAL: No obvious deformities. No clubbing. No cyanosis. No edema. BACK: No CVA tenderness. NEUROLOGICAL: Awake and alert. No obvious cranial nerve deficits. Motor grossly within normal limits. Normal speech. Moves all extremities. 5/5 strength to all extremities. PSYCHIATRIC: Flat affect. No delusional thought processes. No hallucinations. Data Data Last Documented VS Vital Signs Date Time Temp Pulse Resp B/P (MAP) Pulse Ox O2 Delivery O2 Flow Rate FiO2 08/16/17 09:26 17 08/16/17 09:09 97.8 112 134/90 (105) 95 Room Air Orders Orders Complete Blood Count With Diff (08/16/17 09:27) Comprehensive Metabolic Panel (08/16/17 09:27) Urinalysis - C+S If Indicated (08/16/17 09:27) Ed Urine Pregnancytest Poc (08/16/17 09:27) Psych Screen (08/16/17 09:27) Drug Screen, Random Urine (08/16/17 09:27) Valproic Acid (Depakene) (08/16/17 09:48) Labs Laboratory Tests Test 08/16/17 09:35 White Blood Count 8.4 TH/MM3 Red Blood Count 4.25 MIL/MM3 Hemoglobin 12.4 GM/DL Hematocrit 37.0 % Mean Corpuscular Volume 87.1 FL Mean Corpuscular Hemoglobin 29.1 PG Mean Corpuscular Hemoglobin Concent 33.4 % Red Cell Distribution Width 14.2 % Platelet Count 313 TH/MM3 Mean Platelet Volume 7.9 FL Neutrophils (%) (Auto) 66.9 % Lymphocytes (%) (Auto) 23.1 % Monocytes (%) (Auto) 5.7 % Eosinophils (%) (Auto) 3.3 % Basophils (%) (Auto) 1.0 % Neutrophils # (Auto) 5.6 TH/MM3 Lymphocytes # (Auto) 2.0 TH/MM3 Monocytes # (Auto) 0.5 TH/MM3 Eosinophils # (Auto) 0.3 TH/MM3 Basophils # (Auto) 0.1 TH/MM3 CBC Comment DIFF FINAL Differential Comment Urine Color YELLOW Urine Turbidity CLEAR Urine pH 5.5 Urine Specific [place] 1.014 Urine Protein NEG mg/dL Urine Glucose (UA) NEG mg/dL Urine Ketones NEG mg/dL Urine Occult Blood NEG Urine Nitrite NEG Urine Bilirubin NEG Urine Urobilinogen LESS THAN 2.0 MG/DL Urine Leukocyte Esterase NEG Urine RBC 1 /hpf Urine WBC 2 /hpf Urine Squamous Epithelial Cells 6 /hpf Urine Bacteria OCC /hpf Microscopic Urinalysis Comment CULT NOT INDICATED MDM Medical Decision Making Medical Screen Exam Complete: Yes Emergency Medical Condition: Yes Medical Record Reviewed: Yes Differential Diagnosis Gets of hernia, psychosis, medical clearance for psychiatric admission, Narrative Course Patient presents voluntarily. Physical examination and vital signs are essentially unremarkable. Patient has no medical complaints to report. Psych screen has been ordered. If the laboratory results are unremarkable, the patient will be medically cleared for psychiatric evaluation and disposition. Diagnosis Primary Impression: Medical clearance for psychiatric admission Condition: Stable Gina Saini Aug 16, 2017 09:47
[2017-08-16 09:53] LABS: AUTOMATED NEUTROPHIL # 5.6 TH/MM3 (1.8-7.7); BASOPHIL # 0.1 TH/MM3 (0-0.2); EOSINOPHIL # 0.3 TH/MM3 (0-0.4); EOSINOPHIL % 3.3 % (0.0-4.0); HEMOGLOBIN 12.4 GM/DL (11.6-15.3); LYMPH % 23.1 % (9.0-44.0); MEAN CELL VOLUME 87.1 FL (80.0-100.0); MEAN CORPUSCULAR HEMOGLOBIN 29.1 PG (27.0-34.0); MEAN CORPUSCULAR HGB CONC 33.4 % (32.0-36.0); MEAN PLATELET VOLUME 7.9 FL (7.0-11.0); MONO % 5.7 % (0.0-8.0); MONOCYTE # 0.5 TH/MM3 (0-0.9); NEUT % 66.9 % (16.0-70.0); PLATELET COUNT 313 TH/MM3 (150-450); RED BLOOD COUNT 4.25 MIL/MM3 (4.00-5.30); RED CELL DISTRIBUTION WIDTH 14.2 % (11.6-17.2); WHITE BLOOD COUNT 8.4 TH/MM3 (4.0-11.0)
[2017-08-16 10:01] LABS: BACTERIA, URINE OCC /hpf; BILIRUBIN, URINE NEG (NEG); BLOOD, URINE NEG (NEG); GLUCOSE,URINE NEG (NEG); KETONE, URINE NEG (NEG); NITRITE,URINE NEG (NEG); PH, URINE 5.5 (5.0-8.5); SQUAMOUS EPITHELIAL CELL URINE 6 /hpf (0-5); URINE COLOR YELLOW (YELLW/STRAW); URINE LEUKOCYTE ESTERASE NEG (NEG)
[2017-08-16 10:12] LABS: ALBUMIN 3.3 GM/DL (3.4-5.0); AST (GOT) 12 U/L (15-37); BLOOD UREA NITROGEN 14 MG/DL (7-18); CALCIUM 9.6 MG/DL (8.5-10.1); CHLORIDE 105 MEQ/L (98-107); CREATININE 0.93 MG/DL (0.50-1.00); GLOMERULAR FILTRATION RATE 75 ML/MIN (>89); GLUCOSE,RANDOM 208 MG/DL (74-106); SODIUM (NA) 142 MEQ/L (136-145)
[2017-08-16 10:13] LABS: ALT (GPT) 14 U/L (10-53)
[2017-08-16 10:16] LABS: ALKALINE PHOSPHATASE 93 U/L (45-117); TOTAL BILIRUBIN ADULT 0.3 MG/DL (0.2-1.0); TOTAL PROTEIN 7.6 GM/DL (6.4-8.2)
[2017-08-16] MEDS ORDERED: MAGNESIUM HYDROXIDE SUSP 30 ML CUP PO PRN (13:45)
[2017-08-16] MEDS ORDERED: LORazepam 1 MG TAB PO PRN (13:45)
[2017-08-16] MEDS ORDERED: LORazepam 2 MG/ML VIAL IM PRN (13:45)
[2017-08-16] MEDS ORDERED: ALUMINUM/MAGNESIUM/SIMETH 30 ML CUP PO PRN (13:45)
[2017-08-16] MEDS ORDERED: ARTIFICIAL TEARS OPTH SOLN 15 ML BTL EACH EYE PRN (13:45)
[2017-08-16] MEDS ORDERED: diphenhydrAMINE HCL 50 MG/ML VIAL IM PRN (13:45)
[2017-08-16] MEDS ORDERED: hydrOXYzine HCL 50 MG TAB PO PRN (13:45)
--- NOTE | 2017-08-16 13:54 | HHI.HP ---
Provisional Diagnosis Admission Date Aug 16, 2017 at 13:32 Steen I. Schizoaffective disorder, bipolar type Certification of Person's Competence To Provide Express and Informed Consent I have personally examined Cierra Araya , a person being served at [facility] on, Aug 16, 2017 13:41. Express and informed consent means consent voluntarily given in writing, by a competent person, after sufficient explanation and disclosure of the subject matter involved to enable the person to make a knowing and willful decision without any element of force, fraud, deceit, duress, or other form of constraint or coercion. This person is 18 years of age or older, is not now known to be incompetent to consent to treatment with a guardian advocate, and does not have a health care surrogate or proxy currently making medical treatment decisions. I have found this person to be one of the following: [x] Competent to provide express and informed consent, as defined above, for voluntary admission to this facility and is competent to provide express and informed consent for treatment. He/she has the consistent capacity to make well reasoned, willful, and knowing decisions concerning his or her medical or mental health treatment. The person fully and consistently understands the purpose of the admission for examination/placement and is fully capable of personally exercising all rights assured [place] Incompetent to provide express and informed consent to voluntary admission, and this is incompetent to provide express and informed consent to treatment. The person must be transferred to involuntary status and a petition for a guardian advocate filed with the Circuit Court. [] Refusing to provide express and informed consent to voluntary admission but is competent to provide express and informed consent for treatment. The person must be discharged or transferred to involuntary status. Form shall be completed within 24 hours of a person's arrival at the receiving facility and filed in the clinical record of each person: 1. Admitted on a voluntary basis 2. Permitted to provide express and informed consent to his/her own treatment 3. Allowed to transfer from involuntary to voluntary status 4. Prior to permitting a person to consent to his or her own treatment after having been previously found incompetent to consent to treatment. History of Present Illness Capacity: Has Capacity HPI 56-year-old female with multiyear history of diagnoses including schizophrenia and schizoaffective disorder, present voluntarily with psychotic symptoms and a desire to be admitted. Patient has a history of manipulative behavior as well, but is truly psychotic and she is not a good historian. Apparently she came into the emergency department this morning, demanding that her shotblast equipment operator wring her. When she got here she complained of vaginal pain. Shortly thereafter, she requested a psychiatrist because she wanted to be admitted and complained of suicidal thinking. She also made remarks that she had sex for the last few days "but it wasn't with Khalif". She remains hyper yazidi and is responding to internal stimuli, having conversations with herself, exhibiting thought blocking and paranoid delusions. When admitting to suicidal thoughts intermittently, she stated to the nurse that her plan for suicide was to "screw her neck off". She reports experiencing both auditory and visual hallucinations but does not describe them. She has been refusing to take her medicines as prescribed. She admits to smoking marijuana but denies the use of other drugs or alcohol. Toxicology screen is negative for cannabinoids and other illicit drugs. Her Depakote level is low at 37. Review of Systems ROS Limitations: Clinical Condition Psychiatric: COMPLAINS OF: Confusion, Depression, Hallucinations, Suicidal Ideation Except as stated in HPI: all other systems reviewed are Neg Past Psych History Psychological trauma history Unknown for psychological trauma as patient is a poor historian Violence risk - others (6 mos) Moderate Violence risk - self (6 mos) High Substance Abuse History Drugs/Alcohol past 12 months Denied Past Family Social History Coded Allergies: acetaminophen (Unverified Allergy, Severe, 08/16/17) penicillin G (Unverified Allergy, Severe, 08/16/17) propoxyphene (Unverified Allergy, Unknown, 08/16/17) Active Scripts Metoprolol Tartrate (Metoprolol Tartrate) 25 Mg Tab, 12.5 MG PO Q12HR for Blood Pressure Management for 15 Days, TAB 1 Refill Prov:Edie Good MD 05/06/17 Omeprazole (Omeprazole) 20 Mg Tab, 20 MG PO DAILY, #30 TAB 0 Refills Prov:Edie Good MD 05/06/17 Amlodipine (Norvasc) 5 Mg Tab, 5 MG PO DAILY for Blood Pressure Management, #30 TAB 0 Refills Prov:Edie Good MD 05/06/17 Reported Medications Ferrous Sulfate (Ferrous Sulfate) 325 Mg (65 Mg Iron) Tablet, 325 MG PO BIDPC for Nutritional Supplement, #60 TAB 0 Refills 06/17/17 Divalproex ER (Depakote ER) 500 Mg Skylar, 1000 MG PO DAILY for Control Seizures , #60 TAB 0 Refills 06/17/17 Clozapine (Clozapine) 200 Mg Tab, 300 MG PO BID for Schizophrenia, TAB 0 Refills 06/17/17 Glipizide (Glipizide) 10 Mg Tab, 10 MG PO BIDAC for Blood Sugar Management, #60 TAB 0 Refills Take 30 minutes before a meal 06/17/17 Lisinopril (Lisinopril) 10 Mg Tab, 10 MG PO DAILY, #30 TAB 0 Refills 06/17/17 Aspirin (Aspirin Low Dose) 81 Mg Chew, 81 MG CHEW DAILY, TAB 0 Refills 04/25/17 Propylene Glycol-Glycerin Opth Drops (Artificial Tears Opth Drops) 1-0.3% Drops , 1 DROP EACH EYE BID Y for DRY EYE, #15 ML 0 Refills 04/25/17 Pravastatin (Pravastatin) 80 Mg Tab, 80 MG PO DAILY for Cholesterol Management, #30 TAB 0 Refills 04/25/17 Docusate Sodium (Colace) 100 Mg Capsule, 200 MG PO BID 04/25/17 Current Medications Medications (Trade) Dose Ordered Sig/Tori Route Start Time Stop Time Status Last Admin (Ativan) 1 mg Q6H PRN PO 08/16/17 13:45 UNV (Ativan Inj) 1 mg Q6H PRN IM 08/16/17 13:45 UNV (Benadryl) 50 mg Q6H PRN PO 08/16/17 13:45 UNV (Benadryl Inj) 50 mg Q6H PRN IM 08/16/17 13:45 UNV (Tylenol) 650 mg Q4H PRN PO 08/16/17 13:45 UNV (Milk Of Magnesia Liq) 30 ml DAILY PRN PO 08/16/17 13:45 UNV (Mag-Al Plus Susp Liq) 30 ml Q6H PRN PO 08/16/17 13:45 UNV (Atarax) 50 mg Q6H PRN PO 08/16/17 13:45 UNV (Norvasc) 5 mg DAILY PO 08/17/17 09:00 UNV (Aspirin Chew) 81 mg DAILY CHEW 08/17/17 09:00 UNV (Clozaril) 300 mg BID PO 08/16/17 21:00 UNV (Depakote Er) 1,000 mg DAILY PO 08/17/17 09:00 UNV (Colace) 200 mg BID PO 08/16/17 21:00 UNV (Ferrous Sulfate) 325 mg BIDPC PO 08/16/17 18:00 UNV (Glucotrol) 10 mg BIDAC PO 08/16/17 16:00 UNV (Prinivil) 10 mg DAILY PO 08/17/17 09:00 UNV (Lopressor) 12.5 mg Q12HR PO 08/16/17 21:00 UNV (Pravachol) 80 mg DAILY PO 08/17/17 09:00 UNV (Tears Naturale Opth Soln) 1 drop BID PRN EACH EYE 08/16/17 13:45 UNV Non-Formulary Medication 20 mg DAILY PO 08/17/17 09:00 UNV Family Psych History Patient feels other members of her family have problems with their thinking, depression and anxiety. She is unwilling to elaborate. Social History Patient is unemployed although states she used to work. She does receive Social Security disability. She does have a shotblast equipment operator who feels unable to assist the patient at this time. This is due to the patient's refusal to take medicines and refusal to go to her primary care doctor. Patient does not appear to have a significant history of drug or alcohol abuse. She does reportedly have 3 children. Patient's Strengths (min. 2) Verbal and has access to healthcare. Physical Exam GENERAL: SKIN: Warm and dry. HEAD: Normocephalic. EYES: No scleral icterus. No injection or drainage. NECK: Supple, trachea midline. No JVD or lymphadenopathy. CARDIOVASCULAR: Regular rate and rhythm without murmurs, gallops, or rubs. RESPIRATORY: Breath sounds equal bilaterally. No accessory muscle use. GASTROINTESTINAL: Abdomen soft, non-tender, nondistended. MUSCULOSKELETAL: No cyanosis, or edema. BACK: Nontender without obvious deformity. No CVA tenderness. Vital Signs Vital Signs Date Time Temp Pulse Resp B/P (MAP) Pulse Ox O2 Delivery O2 Flow Rate FiO2 08/16/17 09:26 17 08/16/17 09:09 97.8 112 134/90 (105) 95 Room Air Lab Results Test 08/16/17 09:35 White Blood Count 8.4 TH/MM3 Red Blood Count 4.25 MIL/MM3 Hemoglobin 12.4 GM/DL Hematocrit 37.0 % Mean Corpuscular Volume 87.1 FL Mean Corpuscular Hemoglobin 29.1 PG Mean Corpuscular Hemoglobin Concent 33.4 % Red Cell Distribution Width 14.2 % Platelet Count 313 TH/MM3 Mean Platelet Volume 7.9 FL Neutrophils (%) (Auto) 66.9 % Lymphocytes (%) (Auto) 23.1 % Monocytes (%) (Auto) 5.7 % Eosinophils (%) (Auto) 3.3 % Basophils (%) (Auto) 1.0 % Neutrophils # (Auto) 5.6 TH/MM3 Lymphocytes # (Auto) 2.0 TH/MM3 Monocytes # (Auto) 0.5 TH/MM3 Eosinophils # (Auto) 0.3 TH/MM3 Basophils # (Auto) 0.1 TH/MM3 CBC Comment DIFF FINAL Differential Comment Urine Color YELLOW Urine Turbidity CLEAR Urine pH 5.5 Urine Specific [place] 1.014 Urine Protein NEG mg/dL Urine Glucose (UA) NEG mg/dL Urine Ketones NEG mg/dL Urine Occult Blood NEG Urine Nitrite NEG Urine Bilirubin NEG Urine Urobilinogen LESS THAN 2.0 MG/DL Urine Leukocyte Esterase NEG Urine RBC 1 /hpf Urine WBC 2 /hpf Urine Squamous Epithelial Cells 6 /hpf Urine Bacteria OCC /hpf Microscopic Urinalysis Comment CULT NOT INDICATED Blood Urea Nitrogen 14 MG/DL Creatinine 0.93 MG/DL Random Glucose 208 MG/DL Total Protein 7.6 GM/DL Albumin 3.3 GM/DL Calcium Level 9.6 MG/DL Alkaline Phosphatase 93 U/L Aspartate Amino Transf (AST/SGOT) 12 U/L Alanine Aminotransferase (ALT/SGPT) 14 U/L Total Bilirubin 0.3 MG/DL Sodium Level 142 MEQ/L Potassium Level 4.1 MEQ/L Chloride Level 105 MEQ/L Carbon Dioxide Level 26.0 MEQ/L Anion Gap 11 MEQ/L Estimat Glomerular Filtration Rate 75 ML/MIN Urine Opiates Screen NEG Urine Barbiturates Screen NEG Valproic Acid (Depakene) Level 37 MCG/ML Urine Amphetamines Screen NEG Urine Benzodiazepines Screen NEG Urine Cocaine Screen NEG Urine Cannabinoids Screen NEG Mental Status Examination Appearance: Appropriate, Disheveled Consciousness: Alert Orientation: Person, Place Motor Activity: Normal gait Speech: Rapid Language: Perseveration Fund of Knowledge: Adequate Attention and Concentration: Inadequate Memory: Impaired Mood: Anxious, Irritable Affect: Labile Thought Process & Associations: Loose associations, Disorganized Thought Content: Bizarre thinking, Hallucinations, Preoccupations, Delusional Hallucination Type: Auditory, Visual Delusion Type: Paranoid Suicidal Ideation: Yes Suicidal Plan: Yes Suicidal Intention: No Homicidal Ideation: No Homicidal Plan: No Homicidal Intention: No Insight: Fair Judgment: Impulsive Assessment & Plan Problem List: (1) Schizoaffective disorder, bipolar type ICD Codes: F25.0 - Schizoaffective disorder, bipolar type Assessment & Plan Estimated LOS: days. 56-year-old female with long history of psychotic illness , either schizophrenia or schizoaffective disorder, presents with recent history of increasing psychosis, suicidal ideation with plan, inability to care for herself, and noncompliance with her medicines. She is felt to be at high risk for self-harm and therefore is being admitted for further evaluation and treatment. This physician has ordered a CBC and comprehensive metabolic panel to determine if any infectious process or metabolic process is causing or contributing to the patient's psychosis. Additionally, because she has a history of diabetes, cardiovascular disease, etc., this physician is concerned the patient's medications (psychotropic) are making her physical conditions worse. She is noted to be on Clozaril, and if she is taking it and it still not working, we need to either increase the dose or try something else. Also ordered is thyroid stimulating hormone level, vitamin B-12 level and vitamin D level, as deficiencies in these areas could also be causing or contributing to her psychosis. An EKG was ordered due to her history of cardiovascular disease and her multiple medications, which can adversely affect the electrical system of her heart. Likewise, a hep us consult was ordered to address her numerous physical medicine issues. This physician spoke with the patient's nurse, Catalino, regarding her recent behavior. Case management will also be involved to assist with further information gathering and disposition planning. Lastly, although the patient is psychotic, she does want to be admitted voluntarily and appears to be competent to make these decisions. Cristopher Ortiz MD Aug 16, 2017 13:54
[2017-08-16 14:21] VITALS: BP 169/96; PULSE 106; RESP 20; TEMP 97.4; O2SAT 100
--- NOTE | 2017-08-16 18:48 | PD.CONS ---
HPI Service [facility] Consult Requested By Dr. Ortiz Reason for Consult Medical management Primary Care Physician No Primary Care Physician Diagnoses: History of Present Illness This is a 56-year-old female with a past medical history of schizophrenia that was apparently dropped off voluntarily by her dough molder hand for psychological evaluation. The patient states that she has been shaking her butt too much. She said that that her vagina and butt hurt. She endorses some bleeding from those areas as well. She endorses fevers, a sore throat and insomnia. She said she wants to stay in the hospital for a year. Per report the pt's dough molder hand says the patient has been complaining that her butt has been hurting for the last 3 days and that she wants to go to the hospital and be admitted to the psych garcia. She has refused to take her Depakote since Tuesday. The dough molder hand did make her an appointment to be seen on Tuesday by her primary care provider for her "butt pain" and the patient refused to go. The pt was unable to elaborate on her clinical condition any further. Review of Systems Except as stated in HPI: all other systems reviewed are Neg Past Family Social History Allergies: Coded Allergies: acetaminophen (Unverified Allergy, Severe, 08/16/17) penicillin G (Unverified Allergy, Severe, 08/16/17) propoxyphene (Unverified Allergy, Unknown, 08/16/17) Past Medical History Asthma Anxiety Dyslipidemia CAD Hypertension Seizures Schizophrenia Active Ordered Medications Current Medications Medications (Trade) Dose Ordered Sig/Tori Route Start Time Stop Time Status Last Admin (Ativan) 1 mg Q6H PRN PO 08/16/17 13:45 (Ativan Inj) 1 mg Q6H PRN IM 08/16/17 13:45 (Benadryl) 50 mg Q6H PRN PO 08/16/17 13:45 (Benadryl Inj) 50 mg Q6H PRN IM 08/16/17 13:45 (Tylenol) 650 mg Q4H PRN PO 08/16/17 13:45 (Milk Of Magnesia Liq) 30 ml DAILY PRN PO 08/16/17 13:45 (Mag-Al Plus Susp Liq) 30 ml Q6H PRN PO 08/16/17 13:45 (Atarax) 50 mg Q6H PRN PO 08/16/17 13:45 (Norvasc) 5 mg DAILY PO 08/17/17 09:00 (Aspirin Chew) 81 mg DAILY CHEW 08/17/17 09:00 (Clozaril) 300 mg BID PO 08/16/17 21:00 (Depakote Er) 1,000 mg DAILY PO 08/17/17 09:00 (Colace) 200 mg BID PO 08/16/17 21:00 (Ferrous Sulfate) 325 mg BIDPC PO 08/16/17 18:00 (Glucotrol) 10 mg BIDAC PO 08/16/17 16:00 (Prinivil) 10 mg DAILY PO 08/17/17 09:00 (Lopressor) 12.5 mg Q12HR PO 08/16/17 21:00 (Pravachol) 80 mg DAILY PO 08/17/17 09:00 (Tears Naturale Opth Soln) 1 drop BID PRN EACH EYE 08/16/17 13:45 (Protonix) 20 mg DAILY PO 08/17/17 09:00 Family History The pt denies pertinent family history Social History The pt denies smoking and drinking. She endorses MJ use. Physical Exam Vital Signs Vital Signs Date Time Temp Pulse Resp B/P (MAP) Pulse Ox O2 Delivery O2 Flow Rate FiO2 08/16/17 14:21 97.4 106 20 169/96 (120) 100 Room Air 08/16/17 09:26 17 08/16/17 09:09 97.8 112 18 134/90 (105) 95 Room Air Physical Exam GENERAL: Resting comfortably. SKIN: No rashes, ecchymoses or lesions. Warm and dry. HEAD: Atraumatic. Normocephalic. No temporal or scalp tenderness. EYES: Pupils equal round and reactive. Extraocular motions intact. No scleral icterus. No injection or drainage. ENT: Nose without bleeding. Airway patent. NECK: Trachea midline. No JVD or lymphadenopathy. Supple, nontender, no meningeal signs. CARDIOVASCULAR: Tachycardic. No murmur appreciated. No gallops, or rubs. RESPIRATORY: Clear to auscultation. Breath sounds equal bilaterally with fair air entry. No wheezes, rales, or rhonchi. GASTROINTESTINAL: Abdomen soft, non-tender, nondistended, obese. No guarding. MUSCULOSKELETAL: Extremities without clubbing, cyanosis, or edema. No joint tenderness, effusion, or edema noted. NEUROLOGICAL: Awake and active hallucinations noncoherent,. Motor and sensory grossly within normal limits. Five out of 5 muscle strength in all muscle groups. PSYCH: Calm. Laboratory Laboratory Tests Test 08/16/17 09:35 White Blood Count 8.4 Red Blood Count 4.25 Hemoglobin 12.4 Hematocrit 37.0 Mean Corpuscular Volume 87.1 Mean Corpuscular Hemoglobin 29.1 Mean Corpuscular Hemoglobin Concent 33.4 Red Cell Distribution Width 14.2 Platelet Count 313 Mean Platelet Volume 7.9 Neutrophils (%) (Auto) 66.9 Lymphocytes (%) (Auto) 23.1 Monocytes (%) (Auto) 5.7 Eosinophils (%) (Auto) 3.3 Basophils (%) (Auto) 1.0 Neutrophils # (Auto) 5.6 Lymphocytes # (Auto) 2.0 Monocytes # (Auto) 0.5 Eosinophils # (Auto) 0.3 Basophils # (Auto) 0.1 CBC Comment DIFF FINAL Differential Comment Urine Color YELLOW Urine Turbidity CLEAR Urine pH 5.5 Urine Specific [place] 1.014 Urine Protein NEG Urine Glucose (UA) NEG Urine Ketones NEG Urine Occult Blood NEG Urine Nitrite NEG Urine Bilirubin NEG Urine Urobilinogen LESS THAN 2.0 Urine Leukocyte Esterase NEG Urine RBC 1 Urine WBC 2 Urine Squamous Epithelial Cells 6 Urine Bacteria OCC Microscopic Urinalysis Comment CULT NOT INDICATED Blood Urea Nitrogen 14 Creatinine 0.93 Random Glucose 208 Total Protein 7.6 Albumin 3.3 Calcium Level 9.6 Alkaline Phosphatase 93 Aspartate Amino Transf (AST/SGOT) 12 Alanine Aminotransferase (ALT/SGPT) 14 Total Bilirubin 0.3 Sodium Level 142 Potassium Level 4.1 Chloride Level 105 Carbon Dioxide Level 26.0 Anion Gap 11 Estimat Glomerular Filtration Rate 75 Urine Opiates Screen NEG Urine Barbiturates Screen NEG Valproic Acid (Depakene) Level 37 Urine Amphetamines Screen NEG Urine Benzodiazepines Screen NEG Urine Cocaine Screen NEG Urine Cannabinoids Screen NEG Result Diagram: 08/16/1793408/16/17934 Assessment and Plan Assessment and Plan Schizophrenia - Management per psychiatry team. Currently on Clozapine. Sinus tachycardia Noted on last admission as well. - increase Lopressor to 25 mg PO BID. Monitor HR. Hold parameters. - check an EKG and TSH. Hypertension Blood pressure fluctuates. - Patient on Lisinopril 10 mg PO Daily, Amlodipine 5 mg PO daily. Clonidine available PRN. - increase Lopressor as above. Type 2 diabetes mellitus Recent hemoglobin A1c 6.3. - ACCU checks with sliding scale coverage, cover as needed. - continue home glipizide. PPx: Ambulation Discussed Condition With Pt, nurse Rell Vásquez DO Aug 16, 2017 18:48
[2017-08-16 19:10] VITALS: BP 129/59; PULSE 100; RESP 18; TEMP 97.9; O2SAT 97
[2017-08-16] MEDS ORDERED: GLUCAGON 1 MG/ML VIAL OTHER PRN (19:15)
[2017-08-16] MEDS ORDERED: DEXTROSE 50% IN WATER 50 ML VIAL(D50) IV PUSH PRN (19:15)
[2017-08-16] MEDS: glipiZIDE 10 MG TAB PO SCH (19:30)
[2017-08-16] MEDS: FERROUS SULFATE 325 MG (65 MG ELEMENTAL IRON) TAB PO SCH (19:30)
[2017-08-16] MEDS: METOPROLOL TARTRATE 25 MG TAB PO SCH (20:05)
[2017-08-16] MEDS: ACETAMINOPHEN 325 MG TAB PO PRN (20:06)
[2017-08-16] MEDS: INSULIN ASPART SUPPLEMENTAL SCALE SQ SCH (20:12)
[2017-08-16] MEDS: cloZAPine 100 MG TAB PO SCH (20:51)
[2017-08-16] MEDS: DOCUSATE SODIUM 100 MG CAP PO SCH (20:51)
[2017-08-16] MEDS ORDERED: METOPROLOL TARTRATE 25 MG TAB PO SCH (21:00)
[2017-08-16 22:36] VITALS: BP 155/90; PULSE 100; RESP 18; TEMP 98.6
[2017-08-17 05:59] VITALS: BP 156/76; PULSE 96; RESP 18; TEMP 98.1; O2SAT 98
[2017-08-17] MEDS: INSULIN ASPART SUPPLEMENTAL SCALE SQ SCH ×4 (06:55→21:00)
[2017-08-17] MEDS: glipiZIDE 10 MG TAB PO SCH (06:57)
[2017-08-17] MEDS ORDERED: INFLUENZA VIRUS VACCINE (QUADRIVALENT) 0.5 ML SYR IM ONE (09:00)
[2017-08-17] MEDS: cloZAPine 100 MG TAB PO SCH ×2 (09:24→21:37)
[2017-08-17] MEDS: PRAVASTATIN SOD 80 MG TAB PO SCH (09:25)
[2017-08-17] MEDS: DIVALPROEX SODIUM E.R. 500 MG TAB PO SCH (09:25)
[2017-08-17] MEDS: amLODIPine BESYLATE 5 MG TAB PO SCH (09:25)
[2017-08-17] MEDS: ASPIRIN 81 MG CHEW TAB CHEW SCH (09:26)
[2017-08-17] MEDS: METOPROLOL TARTRATE 25 MG TAB PO SCH ×2 (09:26→21:37)
[2017-08-17] MEDS: DOCUSATE SODIUM 100 MG CAP PO SCH ×2 (09:26→21:37)
[2017-08-17] MEDS: LISINOPRIL 10 MG TAB PO SCH (09:30)
[2017-08-17] MEDS: PANTOPRAZOLE SOD 20 MG DELAYED RELEASE TAB PO SCH (09:31)
[2017-08-17] MEDS: FERROUS SULFATE 325 MG (65 MG ELEMENTAL IRON) TAB PO SCH ×2 (09:32→18:29)
[2017-08-17 12:04] LABS: AUTOMATED NEUTROPHIL # 4.6 TH/MM3 (1.8-7.7); BASOPHIL # 0.1 TH/MM3 (0-0.2); BASOPHIL % 1.1 % (0.0-2.0); EOSINOPHIL # 0.3 TH/MM3 (0-0.4); EOSINOPHIL % 3.4 % (0.0-4.0); HEMATOCRIT 36.4 % (35.0-46.0); HEMOGLOBIN 12.1 GM/DL (11.6-15.3); LYMPH % 32.8 % (9.0-44.0); LYMPHOCYTE # 2.7 TH/MM3 (1.0-4.8); MEAN CELL VOLUME 87.4 FL (80.0-100.0); MEAN CORPUSCULAR HEMOGLOBIN 29.1 PG (27.0-34.0); MEAN CORPUSCULAR HGB CONC 33.4 % (32.0-36.0); MEAN PLATELET VOLUME 8.6 FL (7.0-11.0); MONO % 6.5 % (0.0-8.0); MONOCYTE # 0.5 TH/MM3 (0-0.9); NEUT % 56.2 % (16.0-70.0); PLATELET COUNT 326 TH/MM3 (150-450); RED BLOOD COUNT 4.17 MIL/MM3 (4.00-5.30); RED CELL DISTRIBUTION WIDTH 14.1 % (11.6-17.2); WHITE BLOOD COUNT 8.1 TH/MM3 (4.0-11.0)
[2017-08-17] MEDS ORDERED: hydrOXYzine HCL 50 MG TAB PO PRN (12:15)
--- NOTE | 2017-08-17 12:23 | HHI.PYPN ---
Subjective Remarks Patient initially see Dr. Cristopher Ortiz who did the initial psychiatric evaluation. I have completed the initial psychiatric admission template orders. Patient seen in her room with nurse Shara. Patient laying in bed with covers to her chin. She did recognize me, made good eye contact was responsive and appropriate and pleasant with me. 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 She was somewhat ambiguous but stated she was taking her medication. She does state that she talks to refuses any talks directly back to her patient willing to be compliant with her medications, perhaps looking of the placement options Review of Systems Except as stated in HPI: all other systems reviewed are Neg Mental Status Examination Appearance: Appropriate, Disheveled Consciousness: Alert Orientation: Person, Place, Situation Motor Activity: Normal gait Speech: Rapid Language: Perseveration Fund of Knowledge: Adequate Attention and Concentration: Inadequate Memory: Impaired Mood: Anxious, Irritable Affect: Other (slight increase range and intensity) Thought Process & Associations: Loose associations, Disorganized Thought Content: Bizarre thinking, Hallucinations, Preoccupations, Delusional Hallucination Type: Auditory, Visual Delusion Type: Paranoid Suicidal Ideation: Yes (patient somewhat vague today about suicidality) Suicidal Plan: Yes (patient vague today related to suicidality) Suicidal Intention: No Homicidal Ideation: No Homicidal Plan: No Homicidal Intention: No Insight: Fair Judgment: Impulsive Results Labs Test 08/17/17 11:18 White Blood Count 8.1 TH/MM3 Red Blood Count 4.17 MIL/MM3 Hemoglobin 12.1 GM/DL Hematocrit 36.4 % Mean Corpuscular Volume 87.4 FL Mean Corpuscular Hemoglobin 29.1 PG Mean Corpuscular Hemoglobin Concent 33.4 % Red Cell Distribution Width 14.1 % Platelet Count 326 TH/MM3 Mean Platelet Volume 8.6 FL Neutrophils (%) (Auto) 56.2 % Lymphocytes (%) (Auto) 32.8 % Monocytes (%) (Auto) 6.5 % Eosinophils (%) (Auto) 3.4 % Basophils (%) (Auto) 1.1 % Neutrophils # (Auto) 4.6 TH/MM3 Lymphocytes # (Auto) 2.7 TH/MM3 Monocytes # (Auto) 0.5 TH/MM3 Eosinophils # (Auto) 0.3 TH/MM3 Basophils # (Auto) 0.1 TH/MM3 CBC Comment DIFF FINAL Differential Comment Vitals/IOs Vital Signs Date Time Temp Pulse Resp B/P (MAP) Pulse Ox O2 Delivery O2 Flow Rate FiO2 08/17/17 05:59 98.1 96 18 156/76 (102) 98 08/16/17 19:10 Room Air Assessment & Plan Problem List: (1) Schizoaffective disorder, bipolar type ICD Codes: F25.0 - Schizoaffective disorder, bipolar type Assessment & Plan Estimated LOS: days patient continue psychotic paranoid that appears somewhat softer, his compliant medication. Placement may become somewhat difficult. Patient now states she does not wish to go back to her prior living arrangement Justification for Cont. Inpt. At this time patient will decompensate if placed in a lower level of care Discharge Planning The patient does not wish to return to prior living situation placement may be somewhat problematic Request HC Surrog/Guard Advoc?: No Monster Ordonez MD Aug 17, 2017 12:23
[2017-08-17 12:32] LABS: ALBUMIN 3.4 GM/DL (3.4-5.0); ALT (GPT) 17 U/L (10-53); AST (GOT) 10 U/L (15-37); BICARBONATE 29.1 MEQ/L (21.0-32.0); BLOOD UREA NITROGEN 13 MG/DL (7-18); CALCIUM 9.4 MG/DL (8.5-10.1); CHLORIDE 105 MEQ/L (98-107); CHOLESTEROL 202 MG/DL (120-200); CREATININE 0.76 MG/DL (0.50-1.00); GLOMERULAR FILTRATION RATE 95 ML/MIN (>89); GLUCOSE,RANDOM 110 MG/DL (74-106); SODIUM (NA) 139 MEQ/L (136-145); TRIGLYCERIDES 112 MG/DL (42-150)
[2017-08-17 12:35] LABS: HEMOGLOBIN A1C 7.1 % (4.3-6.0)
[2017-08-17 12:57] LABS: ALKALINE PHOSPHATASE 87 U/L (45-117); CHOLESTEROL/ HDL RATIO 3.56 RATIO; HDL CHOLESTEROL 56.7 MG/DL (40.0-60.0); LDL CHOLESTEROL 123 MG/DL (0-99); TOTAL BILIRUBIN ADULT 0.2 MG/DL (0.2-1.0); TOTAL PROTEIN 7.4 GM/DL (6.4-8.2)
--- NOTE | 2017-08-17 14:46 | EKG ---
Date Performed: 08/17/2017 Time Performed: 11:00:00 PTAGE: 56 years EKG: Sinus rhythm LOW QRS VOLTAGE IN PRECORDIAL LEADS NONSPECIFIC T-WAVE ABNORMALITY BORDERLINE ECG No significant clementina nge from prior electrocardiogram. PREVIOUS TRACING : 04/25/2017 16.30 DOCTOR: Otoniel Yates Interpretating Date/Time 08/17/2017 14:45:14
[2017-08-17] MEDS: diphenhydrAMINE HCL 50 MG CAP PO PRN (21:37)
[2017-08-18 05:58] VITALS: BP 107/62; PULSE 91; RESP 16; TEMP 98; O2SAT 97
[2017-08-18] MEDS: INSULIN ASPART SUPPLEMENTAL SCALE SQ SCH ×4 (07:40→21:00)
[2017-08-18] MEDS: amLODIPine BESYLATE 5 MG TAB PO SCH (09:00)
[2017-08-18] MEDS: LISINOPRIL 10 MG TAB PO SCH (09:00)
[2017-08-18] MEDS: METOPROLOL TARTRATE 25 MG TAB PO SCH ×2 (09:00→21:19)
[2017-08-18 09:15] VITALS: BP 101/43
[2017-08-18] MEDS: DIVALPROEX SODIUM E.R. 500 MG TAB PO SCH (09:36)
[2017-08-18] MEDS: DOCUSATE SODIUM 100 MG CAP PO SCH ×2 (09:36→21:20)
[2017-08-18] MEDS: ASPIRIN 81 MG CHEW TAB CHEW SCH (09:36)
[2017-08-18] MEDS: cloZAPine 100 MG TAB PO SCH ×2 (09:36→21:19)
[2017-08-18] MEDS: PRAVASTATIN SOD 80 MG TAB PO SCH (09:37)
[2017-08-18] MEDS: FERROUS SULFATE 325 MG (65 MG ELEMENTAL IRON) TAB PO SCH ×2 (09:38→17:57)
[2017-08-18] MEDS: PANTOPRAZOLE SOD 20 MG DELAYED RELEASE TAB PO SCH (09:40)
--- NOTE | 2017-08-18 13:46 | HHI.PR ---
Subjective Remarks BP into a lower side will dc amlodipine. Emergency room evaluation. Patient denies any lightheadedness, chest pain, shortness of breath, nausea, vomiting. Says she feels tired. Objective Vitals Vital Signs Date Time Temp Pulse Resp B/P (MAP) Pulse Ox O2 Delivery O2 Flow Rate FiO2 08/18/17 09:15 101/43 (62) 08/18/17 05:58 98.0 91 16 107/62 (77) 97 Result Diagram: 08/17/17 1118 08/17/17 1118 Objective Remarks GENERAL: Resting comfortably. CARDIOVASCULAR: Tachycardic. No murmur appreciated. No gallops, or rubs. RESPIRATORY: Clear to auscultation. Breath sounds equal bilaterally with fair air entry. No wheezes, rales, or rhonchi. GASTROINTESTINAL: Abdomen soft, non-tender, nondistended, obese. No guarding. MUSCULOSKELETAL: Extremities without clubbing, cyanosis, or edema. No joint tenderness, effusion, or edema noted. NEUROLOGICAL: Awake and active hallucinations noncoherent,. Motor and sensory grossly within normal limits. Five out of 5 muscle strength in all muscle groups. PSYCH: Calm. A/P Assessment and Plan Schizophrenia - Management per psychiatry team. Currently on Clozapine. Sinus tachycardia Noted on last admission as well. - increase Lopressor to 25 mg PO BID. Monitor HR. Hold parameters. - check an EKG and TSH. Hypertension Blood pressure fluctuates. - Patient on Lisinopril 10 mg PO Daily. DC Amlodipine 5 mg PO dailyas noted with low BP after lopressor was increased to 25 mg po bid. . Clonidine available PRN. - increase Lopressor as above. Type 2 diabetes mellitus Recent hemoglobin A1c 6.3. - ACCU checks with sliding scale coverage, cover as needed. - continue home glipizide. PPx: Ambulation Discussed Condition With Patient, nurse Charmaine Mosqueda MD Aug 18, 2017 13:46
--- NOTE | 2017-08-18 14:59 | HHI.PYPN ---
Subjective Remarks Patient seen in [facility] with nurse Shara, chart reviewed, patient compliant medication. Patient complains of pain in her "Booty" that is complaining of pain in her rectal area stating it was done by "demons" though still auditory hallucinations of "Khalif" talking to work. She does denies suicidality. UA done on 08/16 this culture not indicated. For now continue treatment Review of Systems Except as stated in HPI: all other systems reviewed are Neg Mental Status Examination Appearance: Appropriate, Disheveled Consciousness: Alert Orientation: Person, Place, Situation Motor Activity: Normal gait Speech: Rapid Language: Perseveration Fund of Knowledge: Adequate Attention and Concentration: Inadequate Memory: Impaired Mood: Anxious, Irritable Affect: Other (slight increase range and intensity) Thought Process & Associations: Loose associations, Disorganized Thought Content: Bizarre thinking, Hallucinations, Preoccupations, Delusional Hallucination Type: Auditory, Visual Delusion Type: Paranoid Suicidal Ideation: Yes (patient somewhat vague today about suicidality) Suicidal Plan: Yes (patient vague today related to suicidality) Suicidal Intention: No Homicidal Ideation: No Homicidal Plan: No Homicidal Intention: No Insight: Fair Judgment: Impulsive Results Vitals/IOs Vital Signs Date Time Temp Pulse Resp B/P (MAP) Pulse Ox O2 Delivery O2 Flow Rate FiO2 08/18/17 09:15 101/43 (62) 08/18/17 05:58 98.0 91 16 97 08/16/17 19:10 Room Air Assessment & Plan Problem List: (1) Schizoaffective disorder, bipolar type ICD Codes: F25.0 - Schizoaffective disorder, bipolar type Assessment & Plan Estimated LOS: days patient continue psychotic paranoid, and her affect is somewhat softer. For now continue treatment Justification for Cont. Inpt. At this time patient will decompensate if placed in a lower level of care Discharge Planning Patient somewhat ambiguous about wanting to return to her prior living accommodation Request HC Surrog/Guard Advoc?: No Monster Ordonez MD Aug 18, 2017 14:59
[2017-08-18] MEDS: diphenhydrAMINE HCL 50 MG CAP PO PRN (21:19)
[2017-08-18] MEDS: ACETAMINOPHEN 325 MG TAB PO PRN (21:19)
[2017-08-19] MEDS: INSULIN ASPART SUPPLEMENTAL SCALE SQ SCH ×3 (07:15→16:00)
[2017-08-19 08:18] VITALS: BP 143/63; PULSE 89
[2017-08-19] MEDS: PANTOPRAZOLE SOD 20 MG DELAYED RELEASE TAB PO SCH (08:49)
[2017-08-19] MEDS: DIVALPROEX SODIUM E.R. 500 MG TAB PO SCH (08:49)
[2017-08-19] MEDS: cloZAPine 100 MG TAB PO SCH ×2 (08:49→21:20)
[2017-08-19] MEDS: DOCUSATE SODIUM 100 MG CAP PO SCH ×2 (08:50→21:20)
[2017-08-19] MEDS: LISINOPRIL 10 MG TAB PO SCH (08:50)
[2017-08-19] MEDS: ASPIRIN 81 MG CHEW TAB CHEW SCH (08:50)
[2017-08-19] MEDS: PRAVASTATIN SOD 80 MG TAB PO SCH (08:50)
[2017-08-19] MEDS: ACETAMINOPHEN 325 MG TAB PO PRN (08:50)
[2017-08-19] MEDS: METOPROLOL TARTRATE 25 MG TAB PO SCH ×2 (08:50→21:20)
[2017-08-19] MEDS: FERROUS SULFATE 325 MG (65 MG ELEMENTAL IRON) TAB PO SCH ×2 (08:51→16:14)
--- NOTE | 2017-08-19 10:21 | HHI.PYPN ---
Subjective Remarks Patient seen in her room with nurse adina, chart review, patient compliant medications. Patient so somewhat distracted appears to be responding to internal stimuli. While she is somewhat vague about hearing "Khalif" she did acknowledge continued auditory hallucinations. She did denies suicidality but has some resistance to considering returning to her prior placement. For now continue treatment no change Review of Systems Except as stated in HPI: all other systems reviewed are Neg Mental Status Examination Appearance: Appropriate, Disheveled Consciousness: Alert Orientation: Person, Place, Situation Motor Activity: Normal gait Speech: Rapid Language: Perseveration Fund of Knowledge: Adequate Attention and Concentration: Inadequate Memory: Impaired Mood: Anxious, Irritable Affect: Other (slight increase range and intensity) Thought Process & Associations: Loose associations, Disorganized Thought Content: Bizarre thinking, Hallucinations, Preoccupations, Delusional Hallucination Type: Auditory, Visual Delusion Type: Paranoid Suicidal Ideation: Yes (patient somewhat vague today about suicidality) Suicidal Plan: Yes (patient vague today related to suicidality) Suicidal Intention: No Homicidal Ideation: No Homicidal Plan: No Homicidal Intention: No Insight: Fair Judgment: Impulsive Results Vitals/IOs Vital Signs Date Time Temp Pulse Resp B/P (MAP) Pulse Ox O2 Delivery O2 Flow Rate FiO2 08/19/17 08:18 89 143/63 (89) 08/18/17 05:58 98.0 16 97 08/16/17 19:10 Room Air Intake and Output 08/19/17 08/19/17 08/20/17 08:00 16:00 00:00 Intake Total 0 ml Balance 0 ml Assessment & Plan Problem List: (1) Schizoaffective disorder, bipolar type ICD Codes: F25.0 - Schizoaffective disorder, bipolar type Assessment & Plan Estimated LOS: days patient continue psychotic and paranoid and isolating, though no significant behavioral problems at this time. For now continue treatment. Patient compliant with medication Justification for Cont. Inpt. At this time patient will decompensate if placed in a lower level of care Discharge Planning Placement may become problematic if patient refuses to go to her prior placement Request HC Surrog/Guard Advoc?: No Monster Ordonez MD Aug 19, 2017 10:21
--- NOTE | 2017-08-19 12:35 | HHI.PR ---
Subjective Remarks Follow-up visit on 56-year-old female with past medical history of schizophrenia , hypertension, and diabetes. Patient was seen and examined in her room lying in bed. Her biggest complaint today is that she states that she is having trouble walking. She denies any fevers, chills, nausea, vomiting, or diarrhea. No reports of shortness of breath or chest pain. She tells me that she is weak and that she cannot walk. No trouble eating or swallowing, using the bathroom without any issues Objective Vitals Vital Signs Date Time Temp Pulse Resp B/P (MAP) Pulse Ox O2 Delivery O2 Flow Rate FiO2 08/19/17 08:18 89 143/63 (89) I/O 08/18/17 08/18/17 08/18/17 08/19/17 08/19/17 08/19/17 07:00 15:00 23:00 07:00 15:00 23:00 Intake Total 240 ml Balance 240 ml Intake Oral 240 ml Result Diagram: 08/17/17 1118 08/17/178 Objective Remarks GENERAL: Obese woman, resting comfortably in bed in no acute distress. SKIN: No rashes, ecchymoses or lesions. Warm and dry. HEAD: Atraumatic. Normocephalic. EYES: Pupils equal round and reactive. No scleral icterus. No injection or drainage. ENT: Nose without bleeding. Airway patent. NECK: Trachea midline. CARDIOVASCULAR: Tachycardic. No murmur appreciated. No gallops, or rubs. RESPIRATORY: Clear to auscultation. Breath sounds equal bilaterally with fair air entry. No wheezes, rales, or rhonchi. GASTROINTESTINAL: Abdomen soft, non-tender, nondistended, obese. No guarding. MUSCULOSKELETAL: Extremities without clubbing, cyanosis, or edema. No joint tenderness, effusion, or edema noted. NEUROLOGICAL: Awake and oriented. Bilateral upper nuclear station operator strength +4, bilateral leg strength +4. Patient ambulates without any difficulty, gait is slow but with no difficulties. Able to get in and out of bed without any assistance. No facial droop noted, speech is normal and clear. A/P Assessment and Plan Follow-up visit on 56-year-old female with past medical history of schizophrenia , hypertension, and diabetes. Schizophrenia - Management per psychiatry team. Sinus tachycardia (Noted on last admission as well) - Heart rate 89 this morning, stable, continue Lopressor to 25 mg PO BID. - Continue monitoring heart rate - EKG reviewed with low QRS voltage in pericardial leads nonspecific T-wave abnormality - TSH 2.25, WNL Hypertension Blood pressure fluctuates - Patient on Lisinopril 10 mg PO Daily - Episode of hypotension yesterday morning, holding parameters for metoprolol - Continue trending blood pressures Type 2 diabetes mellitus Recent hemoglobin A1c 6.3. - ACCU checks with sliding scale coverage, cover as needed. - Blood sugars well controlled, will change Accu-Cheks to twice a day before meals. - Continue trending blood sugars PPx: Ambulation Burton Juarez Aug 19, 2017 12:35
[2017-08-19 15:34] VITALS: BP 123/59; PULSE 90; RESP 16; TEMP 98.4; O2SAT 97
[2017-08-19] MEDS: diphenhydrAMINE HCL 50 MG CAP PO PRN (21:20)
[2017-08-20 06:05] VITALS: BP 117/57; PULSE 97; RESP 15; TEMP 98; O2SAT 100
[2017-08-20] MEDS: INSULIN ASPART SUPPLEMENTAL SCALE SQ SCH (07:00)
[2017-08-20] MEDS: ASPIRIN 81 MG CHEW TAB CHEW SCH (08:34)
[2017-08-20] MEDS: DIVALPROEX SODIUM E.R. 500 MG TAB PO SCH (08:35)
[2017-08-20] MEDS: DOCUSATE SODIUM 100 MG CAP PO SCH ×2 (08:35→21:27)
[2017-08-20] MEDS: FERROUS SULFATE 325 MG (65 MG ELEMENTAL IRON) TAB PO SCH ×2 (08:36→18:00)
[2017-08-20] MEDS: LISINOPRIL 10 MG TAB PO SCH (08:36)
[2017-08-20] MEDS: PANTOPRAZOLE SOD 20 MG DELAYED RELEASE TAB PO SCH (08:37)
[2017-08-20] MEDS: cloZAPine 100 MG TAB PO SCH ×2 (08:37→21:28)
[2017-08-20] MEDS: PRAVASTATIN SOD 80 MG TAB PO SCH (08:38)
[2017-08-20] MEDS: METOPROLOL TARTRATE 25 MG TAB PO SCH ×2 (08:38→21:27)
--- NOTE | 2017-08-20 12:23 | HHI.PYPN ---
Subjective Remarks Patient was seen and case discussed with nursing. Patient interviewed in bed this morning. Patient remains quite psychotic and internally preoccupied. She is not answering questions appropriately redirects them in March. Remains preoccupied with voices from Khalif. Compliant with medications behaving well on the unit Mental Status Examination Appearance: Appropriate, Disheveled Consciousness: Alert Orientation: Person, Place, Situation Motor Activity: Normal gait Speech: Rapid Language: Perseveration Fund of Knowledge: Adequate Attention and Concentration: Inadequate Memory: Impaired Mood: Anxious, Irritable Affect: Other (slight increase range and intensity) Thought Process & Associations: Loose associations Thought Content: Bizarre thinking, Hallucinations, Preoccupations, Delusional Hallucination Type: Auditory, Visual Delusion Type: Paranoid Suicidal Ideation: No Suicidal Plan: No Suicidal Intention: No Homicidal Ideation: No Homicidal Plan: No Homicidal Intention: No Insight: Fair Judgment: Impulsive Results Vitals/IOs Vital Signs Date Time Temp Pulse Resp B/P (MAP) Pulse Ox O2 Delivery O2 Flow Rate FiO2 08/20/17 06:05 98.0 97 15 117/57 (77) 100 08/16/17 19:10 Room Air Intake and Output 08/20/17 08/20/17 08/21/17 08:00 16:00 00:00 Intake Total 120 ml 120 ml Balance 120 ml 120 ml Assessment & Plan Problem List: (1) Schizoaffective disorder, bipolar type ICD Codes: F25.0 - Schizoaffective disorder, bipolar type Assessment & Plan Continue current treatment plan Justification for Cont. Inpt. Patient would decompensate in a less restrictive setting Request HC Surrog/Guard Advoc?: No Isaac Membreno DO Aug 20, 2017 12:23
--- NOTE | 2017-08-20 13:13 | HHI.PR ---
Subjective Remarks Follow-up visit on 56-year-old female with past medical history of schizophrenia , hypertension, and diabetes. Patient seen and examined in room resting comfortable. She reports that her butt is hurting, asked if the pain travels down the back of the leg and states yes. She is also complaining of trouble walking states that she cant walk. Denies any SBO, chest pain, N/V/D, constipation, or diarrhea. Objective Vitals Vital Signs Date Time Temp Pulse Resp B/P (MAP) Pulse Ox O2 Delivery O2 Flow Rate FiO2 08/20/17 06:05 98.0 97 15 117/57 (77) 100 08/19/17 15:34 98.4 90 16 123/59 (80) 97 I/O 08/19/17 08/19/17 08/19/17 08/20/17 08/20/17 08/20/17 07:00 15:00 23:00 07:00 15:00 23:00 Intake Total 240 ml 240 ml Balance 240 ml 240 ml Intake Oral 240 ml 240 ml Result Diagram: 08/17/17 1118 08/17/17 1118 Objective Remarks GENERAL: Obese woman, resting comfortably in bed in no acute distress. SKIN: No rashes, ecchymoses or lesions. Warm and dry. Skin on buttocks examined with staff present. No open skin, no wounds or lesions. HEAD: Atraumatic. Normocephalic. EYES: Pupils equal round and reactive. No scleral icterus. No injection or drainage. ENT: Nose without bleeding. Airway patent. NECK: Trachea midline. CARDIOVASCULAR: Tachycardic. No murmur appreciated. No gallops, or rubs. RESPIRATORY: Clear to auscultation. Breath sounds equal bilaterally with fair air entry. No wheezes, rales, or rhonchi. GASTROINTESTINAL: Abdomen soft, non-tender, nondistended, obese. No guarding. MUSCULOSKELETAL: Extremities without clubbing, cyanosis, or edema. No joint tenderness, effusion, or edema noted. NEUROLOGICAL: Awake and oriented. Bilateral upper parts sales manager strength +4, bilateral leg strength +4. Patient ambulates without any difficulty, gait is slow but with no difficulties. Able to get in and out of bed without any assistance. No facial droop noted, speech is normal and clear. A/P Assessment and Plan Follow-up visit on 56-year-old female with past medical history of schizophrenia , hypertension, and diabetes. Schizophrenia - Management per psychiatry team. - Discussed with and and nurse she is still very psychotic. Buttocks pain - Area examined with staff, no visible injury, patient getting in and out of bed without difficulties and ambulating. - ? sciatica as patient states pain travels down leg. - Short course of oral Prednisone, Tylenol PRN, stretches. Sinus tachycardia, resolved (Noted on last admission as well) - Heart rate 97 this morning, stable, continue Lopressor to 25 mg PO BID. - Continue monitoring heart rate - EKG reviewed with low QRS voltage in pericardial leads nonspecific T-wave abnormality - TSH 2.25, WNL Hypertension Blood pressure fluctuates - Patient on Lisinopril 10 mg PO Daily - Episode of hypotension yesterday morning, holding parameters for metoprolol - BP stable Type 2 diabetes mellitus Recent hemoglobin A1c 6.3. - BS stable, DC Accu-checks - Continue ADA diet PPx: Ambulation Burton Juarez Aug 20, 2017 13:13
[2017-08-20 17:40] VITALS: BP 140/81; PULSE 93; RESP 16; TEMP 97.9; O2SAT 98
[2017-08-20] MEDS: diphenhydrAMINE HCL 50 MG CAP PO PRN (21:27)
[2017-08-21 06:15] VITALS: BP 105/59; PULSE 91; RESP 16; TEMP 98.2; O2SAT 96
[2017-08-21] MEDS: PANTOPRAZOLE SOD 20 MG DELAYED RELEASE TAB PO SCH (09:00)
[2017-08-21] MEDS: FERROUS SULFATE 325 MG (65 MG ELEMENTAL IRON) TAB PO SCH ×2 (09:00→18:00)
[2017-08-21] MEDS: PRAVASTATIN SOD 80 MG TAB PO SCH (09:07)
[2017-08-21] MEDS: DOCUSATE SODIUM 100 MG CAP PO SCH ×2 (09:07→20:48)
[2017-08-21] MEDS: LISINOPRIL 10 MG TAB PO SCH (09:08)
[2017-08-21] MEDS: METOPROLOL TARTRATE 25 MG TAB PO SCH ×2 (09:08→20:50)
[2017-08-21] MEDS: ASPIRIN 81 MG CHEW TAB CHEW SCH (09:08)
[2017-08-21] MEDS: DIVALPROEX SODIUM E.R. 500 MG TAB PO SCH (09:08)
[2017-08-21] MEDS: predniSONE 20 MG TAB PO SCH (09:09)
[2017-08-21] MEDS: cloZAPine 100 MG TAB PO SCH ×2 (09:09→20:49)
--- NOTE | 2017-08-21 10:55 | HHI.PYPN ---
Subjective Remarks Patient was seen and case discussed with nursing. Patient continues to be grossly psychotic and disorganized. Today she is minimally interactive laying in bed this morning. Per nursing she slept 7 hours and is compliant with her medications. Appears apathetic and uninterested in the interview Mental Status Examination Appearance: Appropriate, Disheveled Consciousness: Alert Orientation: Person, Place, Situation Motor Activity: Normal gait Speech: Unremarkable Language: Perseveration Fund of Knowledge: Adequate Attention and Concentration: Inadequate Memory: Impaired Mood: Anxious, Irritable Affect: Other (apathetic) Thought Process & Associations: Loose associations, Disorganized Thought Content: Bizarre thinking, Hallucinations, Preoccupations, Delusional Hallucination Type: Auditory Delusion Type: Paranoid Suicidal Ideation: No Suicidal Plan: No Suicidal Intention: No Homicidal Ideation: No Homicidal Plan: No Homicidal Intention: No Insight: Fair Judgment: Impulsive Results Vitals/IOs Vital Signs Date Time Temp Pulse Resp B/P (MAP) Pulse Ox O2 Delivery O2 Flow Rate FiO2 08/21/17 06:15 98.2 91 16 105/59 (74) 96 Assessment & Plan Problem List: (1) Schizoaffective disorder, bipolar type ICD Codes: F25.0 - Schizoaffective disorder, bipolar type Assessment & Plan Continue current treatment plan Justification for Cont. Inpt. Patient would decompensate in a less restrictive setting Request HC Surrog/Guard Advoc?: No Isaac Membreno DO Aug 21, 2017 10:55
--- NOTE | 2017-08-21 11:06 | HHI.PR ---
Subjective Remarks Follow-up visit on a 56-year-old female with past medical history of schizophrenia, hypertension, and diabetes. Patient seen and examined in room lying in bed comfortably. Asked if she is having any buttocks pain and states "its going". Asked if she is having any fevers, chills, nausea, vomiting, or diarrhea states "no". Objective Vitals Vital Signs Date Time Temp Pulse Resp B/P (MAP) Pulse Ox O2 Delivery O2 Flow Rate FiO2 08/21/17 06:15 98.2 91 16 105/59 (74) 96 08/20/17 17:40 97.9 93 16 140/81 (100) 98 I/O 08/20/17 08/20/17 08/20/17 08/21/17 08/21/17 08/21/17 07:00 15:00 23:00 07:00 15:00 23:00 Intake Total 240 ml 240 ml Balance 240 ml 240 ml Intake Oral 240 ml 240 ml Result Diagram: 08/17/178 08/17/17 1118 Objective Remarks GENERAL: Obese woman, resting comfortably in bed in no acute distress. SKIN: No rashes, ecchymoses or lesions. Warm and dry. Skin on buttocks examined with staff present. No open skin, no wounds or lesions. HEAD: Atraumatic. Normocephalic. EYES: Pupils equal round and reactive. No scleral icterus. No injection or drainage. ENT: Nose without bleeding. Airway patent. NECK: Trachea midline. CARDIOVASCULAR: Tachycardic. No murmur appreciated. No gallops, or rubs. RESPIRATORY: Clear to auscultation. Breath sounds equal bilaterally with fair air entry. No wheezes, rales, or rhonchi. GASTROINTESTINAL: Abdomen soft, non-tender, nondistended, obese. No guarding. MUSCULOSKELETAL: Extremities without clubbing, cyanosis, or edema. No joint tenderness, effusion, or edema noted. NEUROLOGICAL: Awake with confusion. Moves all extremities without difficulties. No facial droop noted, speech is normal and clear. A/P Assessment and Plan Follow-up visit on 56-year-old female with past medical history of schizophrenia , hypertension, and diabetes. Schizophrenia - Management per psychiatry team. Buttocks pain - Area examined with staff, no visible injury, patient getting in and out of bed without difficulties and ambulating. - ? sciatica as patient states pain travels down leg. - Short course of oral Prednisone, Tylenol PRN, stretches. Sinus tachycardia, resolved (Noted on last admission as well) - Heart rate 91 this morning, stable, continue Lopressor to 25 mg PO BID. - EKG reviewed with low QRS voltage in pericardial leads nonspecific T-wave abnormality - TSH 2.25, WNL Hypertension Blood pressure fluctuates - Patient on Lisinopril 10 mg PO Daily as well as Lopressor - BP stable Type 2 diabetes mellitus Recent hemoglobin A1c 6.3. - Continue ADA diet PPx: Ambulation Will sign off please reconsult if needed. Burton Juarez Aug 21, 2017 11:06
[2017-08-21 17:50] VITALS: BP 103/56; PULSE 89; RESP 16; TEMP 98.7; O2SAT 100
[2017-08-22 05:28] VITALS: BP 149/68; PULSE 94; RESP 16; TEMP 98.6; O2SAT 98
[2017-08-22] MEDS: PANTOPRAZOLE SOD 20 MG DELAYED RELEASE TAB PO SCH (08:40)
[2017-08-22] MEDS: DOCUSATE SODIUM 100 MG CAP PO SCH ×2 (08:40→20:58)
[2017-08-22] MEDS: PRAVASTATIN SOD 80 MG TAB PO SCH (08:40)
[2017-08-22] MEDS: DIVALPROEX SODIUM E.R. 500 MG TAB PO SCH (08:40)
[2017-08-22] MEDS: LISINOPRIL 10 MG TAB PO SCH (08:40)
[2017-08-22] MEDS: predniSONE 20 MG TAB PO SCH (08:41)
[2017-08-22] MEDS: FERROUS SULFATE 325 MG (65 MG ELEMENTAL IRON) TAB PO SCH ×3 (08:41→17:26)
[2017-08-22] MEDS: ASPIRIN 81 MG CHEW TAB CHEW SCH (08:41)
[2017-08-22] MEDS: cloZAPine 100 MG TAB PO SCH ×2 (08:41→20:58)
[2017-08-22] MEDS: METOPROLOL TARTRATE 25 MG TAB PO SCH ×2 (08:41→20:59)
--- NOTE | 2017-08-22 10:53 | HHI.PYPN ---
Subjective Remarks Patient seen in her room with nurse Yaa, chart reviewed, patient compliant medications. Patient continues to isolate. Does acknowledge occasionally talking to "Khalif". She also stated today that she "needs to be discharged going to a place of my own" will check Depakote level in a.m. Patient then stated she may need a snf placement Review of Systems Except as stated in HPI: all other systems reviewed are Neg Mental Status Examination Appearance: Appropriate, Disheveled Consciousness: Alert Orientation: Person, Place, Situation Motor Activity: Normal gait Speech: Unremarkable Language: Perseveration Fund of Knowledge: Adequate Attention and Concentration: Inadequate Memory: Impaired Mood: Anxious, Irritable Affect: Other (apathetic) Thought Process & Associations: Loose associations, Disorganized Thought Content: Bizarre thinking, Hallucinations, Preoccupations, Delusional Hallucination Type: Auditory Delusion Type: Paranoid Suicidal Ideation: No Suicidal Plan: No Suicidal Intention: No Homicidal Ideation: No Homicidal Plan: No Homicidal Intention: No Insight: Fair Judgment: Impulsive Results Vitals/IOs Vital Signs Date Time Temp Pulse Resp B/P (MAP) Pulse Ox O2 Delivery O2 Flow Rate FiO2 08/22/17 05:28 98.6 94 16 149/68 (95) 98 Intake and Output 08/22/17 08/22/17 08/23/17 08:00 16:00 00:00 Intake Total 0 ml Balance 0 ml Assessment & Plan Problem List: (1) Schizoaffective disorder, bipolar type ICD Codes: F25.0 - Schizoaffective disorder, bipolar type Assessment & Plan Estimated LOS: days patient continue psychotic somewhat delusional. Compliant medication. We'll check Depakote level over in a.m. Justification for Cont. Inpt. At this time patient will decompensate and placed in the lower level of care Discharge Planning Placement may become an issue Request HC Surrog/Guard Advoc?: No Monster Ordonez MD Aug 22, 2017 10:53
[2017-08-22 18:12] VITALS: BP 138/60; PULSE 16; RESP 16; TEMP 97.8; O2SAT 98
[2017-08-22] MEDS: diphenhydrAMINE HCL 50 MG CAP PO PRN (20:59)
[2017-08-23 05:34] VITALS: BP 160/95; PULSE 93; RESP 20; TEMP 98; O2SAT 96
[2017-08-23] MEDS: cloZAPine 100 MG TAB PO SCH ×2 (08:13→20:23)
[2017-08-23] MEDS: PRAVASTATIN SOD 80 MG TAB PO SCH (08:14)
[2017-08-23] MEDS: METOPROLOL TARTRATE 25 MG TAB PO SCH ×2 (08:14→20:23)
[2017-08-23] MEDS: LISINOPRIL 10 MG TAB PO SCH (08:14)
[2017-08-23] MEDS: FERROUS SULFATE 325 MG (65 MG ELEMENTAL IRON) TAB PO SCH ×2 (08:14→18:02)
[2017-08-23] MEDS: DOCUSATE SODIUM 100 MG CAP PO SCH ×2 (08:14→20:23)
[2017-08-23] MEDS: PANTOPRAZOLE SOD 20 MG DELAYED RELEASE TAB PO SCH (08:14)
[2017-08-23] MEDS: predniSONE 20 MG TAB PO SCH (08:14)
[2017-08-23] MEDS: ASPIRIN 81 MG CHEW TAB CHEW SCH (08:15)
[2017-08-23] MEDS: DIVALPROEX SODIUM E.R. 500 MG TAB PO SCH (08:17)
--- NOTE | 2017-08-23 09:15 | PD.TTN ---
Patient Problems 1. Discharge planning 2. Medication compliance 3. Knowledge deficit 4. Lack of coping skills Progress Toward Goals Provider Present: Dr. Taty Ordonez Provider Input: 08/23/17 - Dr. Ordonez reports the patient remains preoccupied and is "talking to Khalif." Psychiatric Counselors Present: WILLIAM Walker Psych Therapist Input: 08/23/17 - Counselor will call patient's detentionhome companion, Ms. Torres, to discuss patient's progress and plan for discharge. Group Spec/RT/OT/HCU Present: VLAD Nelson Group Spec/RT/OT/CHU Input: 08/23/17 - Patient does not attend groups. Documentation Scribe: WILLIAM Walker Date Resolved: Aug 23, 2017 Cheryle Bradford Aug 23, 2017 09:15
--- NOTE | 2017-08-23 12:19 | HHI.PYPN ---
Subjective Remarks Patient seen in [place] with nurse Penny, chart reviewed, patient compliant medication. Patient showing some improvement in her affect. The voices persist with her sterile talking with "Khalif" but not as intense or vigilant. She continues to show concern about placement issues. She denies suicidality homicidality at this time states she will be willing to be compliant with her medications and follow-up in the community Review of Systems Except as stated in HPI: all other systems reviewed are Neg Mental Status Examination Appearance: Appropriate, Disheveled Consciousness: Alert Orientation: Person, Place, Situation Motor Activity: Normal gait Speech: Unremarkable Language: Perseveration Fund of Knowledge: Adequate Attention and Concentration: Inadequate Memory: Impaired Mood: Anxious, Irritable Affect: Other (apathetic) Thought Process & Associations: Loose associations, Disorganized Thought Content: Bizarre thinking, Hallucinations, Preoccupations, Delusional Hallucination Type: Auditory Delusion Type: Paranoid Suicidal Ideation: No Suicidal Plan: No Suicidal Intention: No Homicidal Ideation: No Homicidal Plan: No Homicidal Intention: No Insight: Fair Judgment: Impulsive Results Labs Test 08/23/17 06:42 Valproic Acid (Depakene) Level 68 MCG/ML Vitals/IOs Vital Signs Date Time Temp Pulse Resp B/P (MAP) Pulse Ox O2 Delivery O2 Flow Rate FiO2 08/23/17 05:34 98.0 93 20 160/95 (116) 96 Intake and Output 08/23/17 08/23/17 08/24/17 08:00 16:00 00:00 Intake Total 0 ml 240 ml Balance 0 ml 240 ml Assessment & Plan Problem List: (1) Schizoaffective disorder, bipolar type ICD Codes: F25.0 - Schizoaffective disorder, bipolar type Assessment & Plan Estimated LOS: days patient psychosis is is lifting slightly, she is compliant medication. For now continue treatment Justification for Cont. Inpt. At this time patient will decompensate if placed in a lower level of care Discharge Planning The need to explore assisted or ZAY options Request HC Surrog/Guard Advoc?: Monster Hahn MD Aug 23, 2017 12:19
[2017-08-23 18:00] VITALS: BP 138/60; PULSE 98; RESP 16; TEMP 97.8; O2SAT 97
[2017-08-23] MEDS: diphenhydrAMINE HCL 50 MG CAP PO PRN (20:23)
[2017-08-23] MEDS: ACETAMINOPHEN 325 MG TAB PO PRN (21:21)
[2017-08-24 05:49] VITALS: BP 121/64; PULSE 86; RESP 18; TEMP 98.4; O2SAT 98
[2017-08-24] MEDS: cloZAPine 100 MG TAB PO SCH ×2 (08:31→20:46)
[2017-08-24] MEDS: METOPROLOL TARTRATE 25 MG TAB PO SCH ×2 (08:31→20:46)
[2017-08-24] MEDS: PRAVASTATIN SOD 80 MG TAB PO SCH (08:31)
[2017-08-24] MEDS: DOCUSATE SODIUM 100 MG CAP PO SCH ×2 (08:31→20:46)
[2017-08-24] MEDS: DIVALPROEX SODIUM E.R. 500 MG TAB PO SCH (08:31)
[2017-08-24] MEDS: LISINOPRIL 10 MG TAB PO SCH (08:31)
[2017-08-24] MEDS: ASPIRIN 81 MG CHEW TAB CHEW SCH (08:31)
[2017-08-24] MEDS: predniSONE 20 MG TAB PO SCH (08:32)
[2017-08-24] MEDS: FERROUS SULFATE 325 MG (65 MG ELEMENTAL IRON) TAB PO SCH ×2 (08:32→17:20)
[2017-08-24] MEDS: PANTOPRAZOLE SOD 20 MG DELAYED RELEASE TAB PO SCH (08:32)
--- NOTE | 2017-08-24 14:27 | HHI.PYPN ---
Subjective Remarks Patient seen today in her room with nurse Roberth, chart reviewed, patient compliant medication. Patient told staff earlier today that she got by [employer]if and delivered Adilene Mccauley. When I mention this to her she D gold and looked away. Though she did not deny it. For now continue treatment Review of Systems Except as stated in HPI: all other systems reviewed are Neg Mental Status Examination Appearance: Appropriate, Disheveled Consciousness: Alert Orientation: Person, Place, Situation Motor Activity: Normal gait Speech: Unremarkable Language: Perseveration Fund of Knowledge: Adequate Attention and Concentration: Inadequate Memory: Impaired Mood: Anxious, Irritable Affect: Other (apathetic) Thought Process & Associations: Loose associations, Disorganized Thought Content: Bizarre thinking, Hallucinations, Preoccupations, Delusional Hallucination Type: Auditory Delusion Type: Paranoid Suicidal Ideation: No Suicidal Plan: No Suicidal Intention: No Homicidal Ideation: No Homicidal Plan: No Homicidal Intention: No Insight: Fair Judgment: Impulsive Results Vitals/IOs Vital Signs Date Time Temp Pulse Resp B/P (MAP) Pulse Ox O2 Delivery O2 Flow Rate FiO2 08/24/17 05:49 98.4 86 18 121/64 (83) 98 Assessment & Plan Problem List: (1) Schizoaffective disorder, bipolar type ICD Codes: F25.0 - Schizoaffective disorder, bipolar type Assessment & Plan Estimated LOS: days patient continues psychotic delusional somewhat grandiose and at the same time childish Justification for Cont. Inpt. At this time patient will decompensate a placed on the lower level of care Discharge Planning Patient appears willing to return to her prior jail Request HC Surrog/Guard Advoc?: No Monster Ordonez MD Aug 24, 2017 14:27
[2017-08-24 18:00] VITALS: BP 130/62; PULSE 90; RESP 20; TEMP 98.2; O2SAT 97
[2017-08-24] MEDS: DIVALPROEX SODIUM E.R. 250 MG TAB PO SCH (20:46)
[2017-08-25 06:00] VITALS: BP 131/60; PULSE 84; RESP 17; TEMP 98.4; O2SAT 97
[2017-08-25] MEDS: DOCUSATE SODIUM 100 MG CAP PO SCH ×2 (08:02→20:21)
[2017-08-25] MEDS: LISINOPRIL 10 MG TAB PO SCH (08:02)
[2017-08-25] MEDS: DIVALPROEX SODIUM E.R. 500 MG TAB PO SCH (08:02)
[2017-08-25] MEDS: ASPIRIN 81 MG CHEW TAB CHEW SCH (08:02)
[2017-08-25] MEDS: predniSONE 20 MG TAB PO SCH (08:02)
[2017-08-25] MEDS: PRAVASTATIN SOD 80 MG TAB PO SCH (08:02)
[2017-08-25] MEDS: FERROUS SULFATE 325 MG (65 MG ELEMENTAL IRON) TAB PO SCH ×3 (08:02→17:26)
[2017-08-25] MEDS: METOPROLOL TARTRATE 25 MG TAB PO SCH ×2 (08:02→20:22)
[2017-08-25] MEDS: cloZAPine 100 MG TAB PO SCH ×2 (08:02→20:21)
[2017-08-25] MEDS: PANTOPRAZOLE SOD 20 MG DELAYED RELEASE TAB PO SCH (08:02)
--- NOTE | 2017-08-25 11:42 | HHI.PYPN ---
Subjective Remarks Patient seen in her room with nurse Jennifer, chart review, patient compliant medications. In bed with the blanket up to her children. She is showing a decreased range intensity of her affect she is somewhat more blunted today. Her paranoid delusions seemed somewhat less. There continues thought blocking noted. Today she states she does not want her back her long term versus live for extended period of time Review of Systems Except as stated in HPI: all other systems reviewed are Neg Mental Status Examination Appearance: Appropriate, Disheveled Consciousness: Alert Orientation: Person, Place, Situation Motor Activity: Normal gait Speech: Unremarkable Language: Perseveration Fund of Knowledge: Adequate Attention and Concentration: Inadequate Memory: Impaired Mood: Anxious, Irritable Affect: Other (apathetic) Thought Process & Associations: Loose associations, Disorganized Thought Content: Bizarre thinking, Hallucinations, Preoccupations, Delusional Hallucination Type: Auditory Delusion Type: Paranoid Suicidal Ideation: No Suicidal Plan: No Suicidal Intention: No Homicidal Ideation: No Homicidal Plan: No Homicidal Intention: No Insight: Fair Judgment: Impulsive Results Vitals/IOs Vital Signs Date Time Temp Pulse Resp B/P (MAP) Pulse Ox O2 Delivery O2 Flow Rate FiO2 08/25/17 06:00 98.4 84 17 131/60 (83) 97 Assessment & Plan Problem List: (1) Schizoaffective disorder, bipolar type ICD Codes: F25.0 - Schizoaffective disorder, bipolar type Assessment & Plan Estimated LOS: days patient continue psychotic and delusional though is somewhat softer. She continues compliant with medications. For now continue treatment. We need to discuss her the advantages returning to her former placement Justification for Cont. Inpt. At this time patient will decompensate if placed in a lower level of care Discharge Planning Who please return to her long term Request HC Surrog/Guard Advoc?: No Monster Ordonez MD Aug 25, 2017 11:42
[2017-08-25 16:44] VITALS: BP 107/56; PULSE 96; RESP 18; TEMP 98.7; O2SAT 99
[2017-08-25] MEDS: DIVALPROEX SODIUM E.R. 250 MG TAB PO SCH (20:22)
[2017-08-26] MEDS: PRAVASTATIN SOD 80 MG TAB PO SCH (08:49)
[2017-08-26] MEDS: cloZAPine 100 MG TAB PO SCH ×2 (08:50→21:40)
[2017-08-26] MEDS: LISINOPRIL 10 MG TAB PO SCH (08:50)
[2017-08-26] MEDS: DIVALPROEX SODIUM E.R. 500 MG TAB PO SCH (08:50)
[2017-08-26] MEDS: METOPROLOL TARTRATE 25 MG TAB PO SCH ×3 (08:50→21:40)
[2017-08-26] MEDS: ASPIRIN 81 MG CHEW TAB CHEW SCH (08:50)
[2017-08-26] MEDS: FERROUS SULFATE 325 MG (65 MG ELEMENTAL IRON) TAB PO SCH ×2 (08:50→18:00)
[2017-08-26] MEDS: PANTOPRAZOLE SOD 20 MG DELAYED RELEASE TAB PO SCH (08:51)
[2017-08-26] MEDS: DOCUSATE SODIUM 100 MG CAP PO SCH ×2 (08:51→21:40)
[2017-08-26 10:03] LABS: HEMOGLOBIN 13.2 GM/DL (11.6-15.3); MEAN CELL VOLUME 87.3 FL (80.0-100.0); MEAN CORPUSCULAR HEMOGLOBIN 28.8 PG (27.0-34.0); MEAN PLATELET VOLUME 8.7 FL (7.0-11.0); PLATELET COUNT 306 TH/MM3 (150-450); RED BLOOD COUNT 4.58 MIL/MM3 (4.00-5.30); RED CELL DISTRIBUTION WIDTH 13.6 % (11.6-17.2); WHITE BLOOD COUNT 14.3 TH/MM3 (4.0-11.0)
--- NOTE | 2017-08-26 13:34 | HHI.PYPN ---
Subjective Remarks Patient seen in her room with floor staff. Chart reviewed. Patient compliant medication. Patient in bed with covers to her children. Smiling with me somewhat childlike and superficial today. She acknowledges vague auditory hallucinations usually of Khalif. For now continue treatment Review of Systems Except as stated in HPI: all other systems reviewed are Neg Mental Status Examination Appearance: Appropriate, Disheveled Consciousness: Alert Orientation: Person, Place, Situation Motor Activity: Normal gait Speech: Unremarkable Language: Perseveration Fund of Knowledge: Adequate Attention and Concentration: Inadequate Memory: Impaired Mood: Anxious, Irritable Affect: Other (apathetic) Thought Process & Associations: Loose associations, Disorganized Thought Content: Bizarre thinking, Hallucinations, Preoccupations, Delusional Hallucination Type: Auditory Delusion Type: Paranoid Suicidal Ideation: No Suicidal Plan: No Suicidal Intention: No Homicidal Ideation: No Homicidal Plan: No Homicidal Intention: No Insight: Fair Judgment: Impulsive Results Labs Test 08/26/17 08:55 White Blood Count 14.3 TH/MM3 Red Blood Count 4.58 MIL/MM3 Hemoglobin 13.2 GM/DL Hematocrit 40.0 % Mean Corpuscular Volume 87.3 FL Mean Corpuscular Hemoglobin 28.8 PG Mean Corpuscular Hemoglobin Concent 33.0 % Red Cell Distribution Width 13.6 % Platelet Count 306 TH/MM3 Mean Platelet Volume 8.7 FL Vitals/IOs Vital Signs Date Time Temp Pulse Resp B/P (MAP) Pulse Ox O2 Delivery O2 Flow Rate FiO2 08/25/17 16:44 98.7 96 18 107/56 (73) 99 Intake and Output 08/26/17 08/26/17 08/27/17 08:00 16:00 00:00 Intake Total 360 ml Balance 360 ml Assessment & Plan Problem List: (1) Schizoaffective disorder, bipolar type ICD Codes: F25.0 - Schizoaffective disorder, bipolar type Assessment & Plan Estimated LOS: days patient continue psychotic somewhat paranoid but calmer. Compliant medications. Justification for Cont. Inpt. At this time patient will decompensate if placed in a lower level of care Discharge Planning Placement may become somewhat problematic continue to work with counselors Request HC Surrog/Guard Advoc?: No Monster Ordonez MD Aug 26, 2017 13:34
[2017-08-26 18:06] VITALS: BP 96/56; PULSE 97; RESP 18; TEMP 98.5; O2SAT 99
[2017-08-26] MEDS: DIVALPROEX SODIUM E.R. 250 MG TAB PO SCH (21:40)
[2017-08-27] MEDS: PANTOPRAZOLE SOD 20 MG DELAYED RELEASE TAB PO SCH (08:04)
[2017-08-27] MEDS: FERROUS SULFATE 325 MG (65 MG ELEMENTAL IRON) TAB PO SCH ×2 (08:04→17:05)
[2017-08-27] MEDS: DIVALPROEX SODIUM E.R. 500 MG TAB PO SCH (08:04)
[2017-08-27] MEDS: DOCUSATE SODIUM 100 MG CAP PO SCH ×2 (08:04→20:48)
[2017-08-27] MEDS: PRAVASTATIN SOD 80 MG TAB PO SCH (08:04)
[2017-08-27] MEDS: ASPIRIN 81 MG CHEW TAB CHEW SCH (08:05)
[2017-08-27] MEDS: cloZAPine 100 MG TAB PO SCH ×2 (08:05→20:47)
[2017-08-27] MEDS: LISINOPRIL 10 MG TAB PO SCH (08:05)
[2017-08-27] MEDS: METOPROLOL TARTRATE 25 MG TAB PO SCH ×2 (08:05→20:47)
--- NOTE | 2017-08-27 15:12 | HHI.PYPN ---
Subjective Remarks Pt seen and discussed with staff. Pt remains delusional and believes that she gave to [place]. She remains seclusive to her room with poor appetite. ADLs are poor. She continues to respond to internal stimuli. Medication compliant. No SI/HI Mental Status Examination Appearance: Appropriate, Disheveled Consciousness: Alert Orientation: Person, Place, Situation Motor Activity: Normal gait Speech: Unremarkable Language: Perseveration Fund of Knowledge: Adequate Attention and Concentration: Inadequate Memory: Impaired Mood: Anxious, Irritable Affect: Other (apathetic) Thought Process & Associations: Loose associations, Disorganized Thought Content: Bizarre thinking, Hallucinations, Preoccupations, Delusional Hallucination Type: Auditory Delusion Type: Paranoid Suicidal Ideation: No Suicidal Plan: No Suicidal Intention: No Homicidal Ideation: No Homicidal Plan: No Homicidal Intention: No Insight: Fair Judgment: Impulsive Results Vitals/IOs Vital Signs Date Time Temp Pulse Resp B/P (MAP) Pulse Ox O2 Delivery O2 Flow Rate FiO2 08/26/17 18:06 98.5 97 18 96/56 (69) 99 Intake and Output 08/27/17 08/27/17 08/28/17 08:00 16:00 00:00 Intake Total 0 ml 240 ml Balance 0 ml 240 ml Assessment & Plan Problem List: (1) Schizoaffective disorder, bipolar type ICD Codes: F25.0 - Schizoaffective disorder, bipolar type Assessment & Plan Continue current tx plan. Estimated LOS: days Justification for Cont. Inpt. impairments in reality testing Request HC Surrog/Guard Advoc?: Ailyn Hancock MD Aug 27, 2017 15:12
[2017-08-27 18:11] VITALS: BP 122/57; PULSE 74; RESP 18; TEMP 98.6; O2SAT 97
[2017-08-27] MEDS: DIVALPROEX SODIUM E.R. 250 MG TAB PO SCH (20:47)
[2017-08-27] MEDS: ACETAMINOPHEN 325 MG TAB PO PRN (20:51)
[2017-08-28 05:57] VITALS: BP 124/56; PULSE 87; RESP 18; TEMP 97.4; O2SAT 96
[2017-08-28] MEDS: PANTOPRAZOLE SOD 20 MG DELAYED RELEASE TAB PO SCH (08:51)
[2017-08-28] MEDS: DOCUSATE SODIUM 100 MG CAP PO SCH ×2 (08:51→22:13)
[2017-08-28] MEDS: cloZAPine 100 MG TAB PO SCH ×2 (08:51→22:14)
[2017-08-28] MEDS: FERROUS SULFATE 325 MG (65 MG ELEMENTAL IRON) TAB PO SCH ×2 (08:51→17:17)
[2017-08-28] MEDS: ASPIRIN 81 MG CHEW TAB CHEW SCH (08:52)
[2017-08-28] MEDS: PRAVASTATIN SOD 80 MG TAB PO SCH (08:52)
[2017-08-28] MEDS: DIVALPROEX SODIUM E.R. 500 MG TAB PO SCH (08:52)
[2017-08-28] MEDS: LISINOPRIL 10 MG TAB PO SCH (08:52)
[2017-08-28] MEDS: METOPROLOL TARTRATE 25 MG TAB PO SCH ×2 (08:52→21:00)
--- NOTE | 2017-08-28 14:52 | HHI.PYPN ---
Subjective Remarks Pt seen and discussed with staff. She remains seclusive to her room. She has been refusing meals and lays in bed with covers over her head. She refused medications initially but eventually did comply. Pt is paranoid and delusional. She c/o discomfort during urination. Mental Status Examination Appearance: Appropriate, Disheveled Consciousness: Alert Orientation: Person, Place, Situation Motor Activity: Normal gait Speech: Unremarkable Language: Perseveration Fund of Knowledge: Adequate Attention and Concentration: Inadequate Memory: Impaired Mood: Anxious, Irritable Affect: Other (apathetic) Thought Process & Associations: Loose associations, Disorganized Thought Content: Bizarre thinking, Hallucinations, Preoccupations, Delusional Hallucination Type: Auditory Delusion Type: Paranoid Suicidal Ideation: No Suicidal Plan: No Suicidal Intention: No Homicidal Ideation: No Homicidal Plan: No Homicidal Intention: No Insight: Fair Judgment: Impulsive Results Vitals/IOs Vital Signs Date Time Temp Pulse Resp B/P (MAP) Pulse Ox O2 Delivery O2 Flow Rate FiO2 08/28/17 05:57 97.4 87 18 124/56 (78) 96 Assessment & Plan Problem List: (1) Schizoaffective disorder, bipolar type ICD Codes: F25.0 - Schizoaffective disorder, bipolar type Assessment & Plan Continue current tx plan. Will check u/a. Estimated LOS: days Justification for Cont. Inpt. impairments in reality testing Request HC Surrog/Guard Advoc?: No Ailyn Hitchcock MD Aug 28, 2017 14:52
[2017-08-28 16:50] VITALS: BP 100/52; PULSE 93; RESP 18; TEMP 98.3; O2SAT 96
[2017-08-28 19:28] LABS: BACTERIA, URINE RARE /hpf; BILIRUBIN, URINE NEG (NEG); BLOOD, URINE NEG (NEG); GLUCOSE,URINE NEG (NEG); KETONE, URINE TRACE mg/dL (NEG); MUCUS URINE FEW /lpf (OCC); NITRITE,URINE NEG (NEG); PH, URINE 6.5 (5.0-8.5); SQUAMOUS EPITHELIAL CELL URINE 4 /hpf (0-5); URINE COLOR YELLOW (YELLW/STRAW); URINE LEUKOCYTE ESTERASE NEG (NEG)
[2017-08-28] MEDS: DIVALPROEX SODIUM E.R. 250 MG TAB PO SCH (22:13)
[2017-08-29 05:53] VITALS: BP 141/68; PULSE 98; RESP 17; TEMP 97.9; O2SAT 96
[2017-08-29] MEDS: ASPIRIN 81 MG CHEW TAB CHEW SCH (08:53)
[2017-08-29] MEDS: cloZAPine 100 MG TAB PO SCH ×2 (08:54→21:06)
[2017-08-29] MEDS: PRAVASTATIN SOD 80 MG TAB PO SCH (08:54)
[2017-08-29] MEDS: LISINOPRIL 10 MG TAB PO SCH (08:54)
[2017-08-29] MEDS: PANTOPRAZOLE SOD 20 MG DELAYED RELEASE TAB PO SCH (08:54)
[2017-08-29] MEDS: DIVALPROEX SODIUM E.R. 500 MG TAB PO SCH (08:55)
[2017-08-29] MEDS: METOPROLOL TARTRATE 25 MG TAB PO SCH ×2 (08:55→21:06)
[2017-08-29] MEDS: DOCUSATE SODIUM 100 MG CAP PO SCH ×2 (08:55→21:05)
[2017-08-29] MEDS: FERROUS SULFATE 325 MG (65 MG ELEMENTAL IRON) TAB PO SCH ×3 (08:55→18:00)
--- NOTE | 2017-08-29 11:23 | HHI.PYPN ---
Subjective Remarks Patient seen and examined with nurse in coverage for Dr. Ordonez. Chart reviewed. Case discussed with nursing staff who reports patient is medication compliant but seclusive to room. I note that the patient took dinner yesterday evening but is refusing all other medications. On my examination today, the patient appears to be in good spirits. She says that her mood is "much better. " She denies SI or HI. She denies audiovisual hallucinations but does appear a little internally preoccupied. Denies side effects from medications. No physical complaints. Review of Systems ROS Limitations: Psychotic, Poor Historian Except as stated in HPI: all other systems reviewed are Neg Mental Status Examination Appearance: Disheveled Consciousness: Alert Orientation: Person, Place, Situation Motor Activity: Normal gait Speech: Unremarkable Language: Adequate Fund of Knowledge: Adequate Attention and Concentration: Inadequate Memory: Impaired Mood: Other (calm) Affect: Blunt Thought Process & Associations: Linear Thought Content: Bizarre thinking, Hallucinations, Preoccupations, Delusional Hallucination Type: Auditory (appears internally stimulated) Delusion Type: Paranoid Suicidal Ideation: No Suicidal Plan: No Suicidal Intention: No Homicidal Ideation: No Homicidal Plan: No Homicidal Intention: No Insight: Poor Judgment: Poor Results Labs Test 08/28/17 18:45 Urine Color YELLOW Urine Turbidity CLEAR Urine pH 6.5 Urine Specific Lee 1.017 Urine Protein TRACE mg/dL Urine Glucose (UA) NEG mg/dL Urine Ketones TRACE mg/dL Urine Occult Blood NEG Urine Nitrite NEG Urine Bilirubin NEG Urine Urobilinogen LESS THAN 2.0 MG/DL Urine Leukocyte Esterase NEG Urine RBC LESS THAN 1 /hpf Urine WBC 1 /hpf Urine Squamous Epithelial Cells 4 /hpf Urine Bacteria RARE /hpf Urine Mucus FEW /lpf Microscopic Urinalysis Comment CULT NOT INDICATED Labs reviewed. Urinalysis fairly bland. Vitals/IOs Vital Signs Date Time Temp Pulse Resp B/P (MAP) Pulse Ox O2 Delivery O2 Flow Rate FiO2 08/29/17 05:53 97.9 98 17 141/68 (92) 96 Assessment & Plan Problem List: (1) Schizoaffective disorder, bipolar type ICD Codes: F25.0 - Schizoaffective disorder, bipolar type Assessment & Plan Continue current psychotropics as ordered. Request dietitian consult given poor PO intake. Continue other medication and care as ordered. Justification for Cont. Inpt. Impairment in reality construction. High risk for decompensation in less restrictive environment. Discharge Planning Per Isiah Charles MD Aug 29, 2017 11:23
[2017-08-29 17:00] VITALS: BP 114/60; PULSE 105; RESP 18; TEMP 98.4; O2SAT 97
[2017-08-29] MEDS: DIVALPROEX SODIUM E.R. 250 MG TAB PO SCH (21:06)
[2017-08-30 06:45] VITALS: BP 139/63; PULSE 103; RESP 18; TEMP 98.5; O2SAT 98
[2017-08-30] MEDS: ASPIRIN 81 MG CHEW TAB CHEW SCH (08:10)
[2017-08-30] MEDS: FERROUS SULFATE 325 MG (65 MG ELEMENTAL IRON) TAB PO SCH ×2 (08:10→17:08)
[2017-08-30] MEDS: cloZAPine 100 MG TAB PO SCH (08:10)
[2017-08-30] MEDS: LISINOPRIL 10 MG TAB PO SCH (08:10)
[2017-08-30] MEDS: PRAVASTATIN SOD 80 MG TAB PO SCH (08:10)
[2017-08-30] MEDS: DOCUSATE SODIUM 100 MG CAP PO SCH (08:10)
[2017-08-30] MEDS: PANTOPRAZOLE SOD 20 MG DELAYED RELEASE TAB PO SCH (08:10)
[2017-08-30] MEDS: DIVALPROEX SODIUM E.R. 500 MG TAB PO SCH (08:10)
[2017-08-30] MEDS: METOPROLOL TARTRATE 25 MG TAB PO SCH (08:11)
[2017-08-30] MEDS ORDERED: PRAV80TA2 PO (12:37)
[2017-08-30] MEDS ORDERED: COLA100C5 PO (12:37)
[2017-08-30] MEDS ORDERED: PANT20 PO (12:37)
[2017-08-30] MEDS ORDERED: DEPA500T3 PO (12:37)
[2017-08-30] MEDS ORDERED: ASPI81CH6 CHEW (12:37)
[2017-08-30] MEDS ORDERED: ARTIDRO EACH EYE (12:37)
[2017-08-30] MEDS ORDERED: LISI10TA3 PO (12:37)
[2017-08-30] MEDS ORDERED: CLOZ200T PO (12:37)
[2017-08-30] MEDS ORDERED: FERR325T18 PO (12:37)
[2017-08-30] MEDS ORDERED: GLIP10TA6 PO (12:37)
[2017-08-30] MEDS ORDERED: METO25TA3 PO (12:37)
--- NOTE | 2017-08-30 12:49 | HHI.DS ---
Psychiatry Discharge Summary Inpatient Psychiatric care?: Yes Advance Directive: Yes Mental Health AdvanceDirective: No Health Care Proxy: No Admission Admission Date Aug 16, 2017 at 13:32 Admission Diagnosis: (1) Schizoaffective disorder, bipolar type ICD Code: F25.0 - Schizoaffective disorder, bipolar type Brief History 56-year-old female with multiyear history of diagnoses including schizophrenia and schizoaffective disorder, present voluntarily with psychotic symptoms and a desire to be admitted. Patient has a history of manipulative behavior as well, but is truly psychotic and she is not a good historian. Apparently she came into the emergency department this morning, demanding that her catering staff member wring her. When she got here she complained of vaginal pain. Shortly thereafter, she requested a psychiatrist because she wanted to be admitted and complained of suicidal thinking. She also made remarks that she had sex for the last few days "but it wasn't with Khalif". She remains hyper jewish and is responding to internal stimuli, having conversations with herself, exhibiting thought blocking and paranoid delusions. When admitting to suicidal thoughts intermittently, she stated to the nurse that her plan for suicide was to "screw her neck off". She reports experiencing both auditory and visual hallucinations but does not describe them. She has been refusing to take her medicines as prescribed. She admits to smoking marijuana but denies the use of other drugs or alcohol. Toxicology screen is negative for cannabinoids and other illicit drugs. Her Depakote level is low at 37. Tobacco Use In Past 30 Days: No Tobacco Past 30 Days Alcohol Use: Never Hospital Course Patient's hospital course was uneventful. Patient showed little socialization though she was out for her meals. Her psychosis auditory hallucinations slowly diminished. Her bizarre statements slowly diminished also. Patient seen today with nurse. Patient calm cooperative pleasant states she wants to go home today denies suicidality homicidality voices or visions. There is been contact with Mrs. orozco she is willing to have patient come back to her home today. At this time I feel patient reached maximum benefit of this hospitalization. [facility]. Patient makes commitment to cooperate with medication management appointments and rules in the house. Thus will be discharged today with Rx 1 month follow-up [facility] Results Blood Pressure 139 / 63 Vital Signs Date Time Temp Pulse Resp B/P (MAP) Pulse Ox O2 Delivery O2 Flow Rate FiO2 08/30/17 06:45 98.5 103 18 139/63 (88) 98 Laboratory Tests Test 08/28/17 18:45 Urine Ketones TRACE mg/dL (NEG) Urine Bacteria RARE /hpf (NONE) Urine Mucus FEW /lpf (OCC) Laboratory Results Test 08/17/17 11:18 08/23/17 06:42 Cholesterol Level 202 MG/DL (120-200) HDL Cholesterol 56.7 MG/DL (40.0-60.0) Hemoglobin A1c 7.1 % (4.3-6.0) LDL Cholesterol 123 MG/DL (0-99) Triglycerides Level 112 MG/DL (42-150) Valproic Acid (Depakene) Level 68 MCG/ML (50-100) Summary of Procedures None done Pending results at discharge: No Medications # of Antipsychotic meds at D/C: 1 Approp Antipsych med options 1 - Minimum of three failed multiple trials of monotherapy. 2 - Documented plan to taper to monotherapy due to previous use of multiple meds OR cross-taper in progress at D/C. 3 - Documentation of augmentation of Clozapine. 4 - Justification other than those listed in allowable values 1-3, document here : Discharge Discharge Date: Aug 30, 2017 Discharge Diagnosis: (1) Schizoaffective disorder, bipolar type Diagnosis: Principal ICD Code: F25.0 - Schizoaffective disorder, bipolar type Pt Condition on Discharge: Stable Discharge Disposition: ACLF/SNF Discharge Instructions Diet Instructions: As Tolerated, No Restrictions Activities you can perform: Regular-No Restrictions Scheduled Appointment: Manuel Aquino Discharge Time > 30 minutes Mental Status Examination Appearance: Disheveled Consciousness: Alert Orientation: Person, Place, Situation Motor Activity: Normal gait Speech: Unremarkable Language: Adequate Fund of Knowledge: Adequate Attention and Concentration: Inadequate Memory: Impaired Mood: Other (calm) Affect: Blunt Thought Process & Associations: Linear Thought Content: Bizarre thinking, Hallucinations, Preoccupations, Delusional Hallucination Type: Auditory (appears internally stimulated) Delusion Type: Paranoid Suicidal Ideation: No Suicidal Plan: No Suicidal Intention: No Homicidal Ideation: No Homicidal Plan: No Homicidal Intention: No Insight: Poor Judgment: Poor Discharge/Advance Care Plan Health Problems: (1) Schizoaffective disorder, bipolar type Goals to promote your health * To prevent worsening of your condition and complications * To maintain your health at the optimal level Directions to meet your goals Take your medications as prescribed Follow your dietary instruction Follow activity as directed Keep your appointments as scheduled Take your immunizations and boosters as scheduled If your symptoms worsen call your PCP, if no PCP go to Urgent Care Center or Emergency Room For 21/03 questions related to your inpatient stay or results of tests pending at discharge, please contact Dr. Monster Ordonez at Smoking is Dangerous to Your Health. Avoid second hand smoking Monster Ordonez MD Aug 30, 2017 12:49
== END 2017-08-30 17:30 | DRG 885 ==
LOC: NEPD 09:07 → NEDA 13:32 → H260 21:00
PROVIDERS: ADMIT Psychiatry & Neurology Psychiatry; ATTEND Psychiatry & Neurology Psychiatry
DX: F25.0 Schizoaffective disorder, bipolar type (principal); R56.9 Unspecified convulsions; Z91.14 Patient's other noncompliance with medication regimen; I10 Essential (primary) hypertension; E78.5 Hyperlipidemia, unspecified; I25.10 Atherosclerotic heart disease of native coronary artery without angina pectoris; F12.90 Cannabis use, unspecified, uncomplicated; R00.0 Tachycardia, unspecified; E11.9 Type 2 diabetes mellitus without complications; Z79.84 Long term (current) use of oral hypoglycemic drugs; J45.909 Unspecified asthma, uncomplicated; Z23 Encounter for immunization
CPT/HCPCS: 80053; 80061; 80164; 80307; 81001; 82306; 82607; 82948; 83036; 84443; 84703; 85025; 85027; 90686; 93005; J1815; J7512; Q0163; Q2038

== ENCOUNTER 2017-09-20 13:35 | Emergency (ER) | payer OTHER ==
[~2017-09-20 13:35] MED LIST changes: -OMEP20TA93 PO; +PANT20 PO
[2017-09-20 13:38] VITALS: BP 142/73; PULSE 122; RESP 16; TEMP 99.7; O2SAT 96
--- NOTE | 2017-09-20 14:22 | PD ---
HPI Chief Complaint: Psychiatric Symptoms Time Seen by Provider: 14:19 Travel History International Travel<30 days: No Contact w/Intl Traveler<30days: No Traveled to known affect area: No History of Present Illness HPI History of present illness is limited secondary to patient answering questions inappropriately and being delusional. Patient makes no sense and she continues to ramble when asked questions. I reviewed her medical record and she has history of schizophrenia. Apparently the patient was found by our security guards, here at [place], smoking crack cocaine in the fountain of our [place]. Symptoms are moderate to severe in severity. No known relieving or aggravating factors. Unknown onset. PFSH Past Medical History Arthritis: No Asthma: Yes Autoimmune Disease: No Blood Disorders: No Anxiety: Yes Depression: Yes Heart Rhythm Problems: No High Cholesterol: Yes Chest Pain: No Congestive Heart Failure: No COPD: No Cerebrovascular Accident: No Coronary Artery Disease: Yes Diminished Hearing: No Endocrine: No GERD: No Glaucoma: No Genitourinary: No Headaches: No (per pt) Hepatitis: No Hiatal Hernia: No Hypertension: Yes Immune Disorder: No Implanted Vascular Access Dvce: No Kidney Stones: No Musculoskeletal: No Neurologic: No Psychiatric: Yes (Schizoaffective) Reproductive: No Respiratory: No Immunizations Current: No Myocardial Infarction: No Renal Failure: No Schizophrenia: Yes Sleep Apnea: No Thyroid Disease: No Triglycerides - High: Yes Ulcer: No PNEUMOCCOCAL Vaccine (Year): 2008 Menopausal: Yes : 4 Para: 3 Miscarriage: 1 Past Surgical History Abdominal Surgery: Yes (Hysterectomy) AICD: No Arteriovenous Shunt: No Body Medical Devices: VASCULAR ACCESS DEVICE Cardiac Surgery: No Section: Yes Ear Surgery: No Endocrine Surgery: No Eye Surgery: No Genitourinary Surgery: No Gynecologic Surgery: No Hysterectomy: Yes Insulin Pump: No Joint Replacement: No Oral Surgery: No Pacemaker: No Thoracic Surgery: No Social History Alcohol Use: No Tobacco Use: No Substance Use: No Allergies-Medications (Allergen,Severity, Reaction): Coded Allergies: acetaminophen (Unverified Allergy, Severe, 08/16/17) penicillin G (Unverified Allergy, Severe, 08/16/17) propoxyphene (Unverified Allergy, Unknown, 08/16/17) Reported Meds & Prescriptions Reported Meds & Active Scripts Active Protonix (Pantoprazole Sodium) 20 Mg Tab 20 Mg PO DAILY Metoprolol Tartrate 25 Mg Tab 25 Mg PO Q12HR Ferrous Sulfate 325 Mg (65 Mg Iron) Tablet 325 Mg PO BIDPC Depakote ER (Divalproex Sodium) 500 Mg Skylar 1,000 Mg PO HS Clozapine 200 Mg Tab 300 Mg PO BID Glipizide 10 Mg Tab 10 Mg PO BIDAC Take 30 minutes before a meal Lisinopril 10 Mg Tab 10 Mg PO DAILY Aspirin Low Dose (Aspirin) 81 Mg Chew 81 Mg CHEW DAILY Artificial Tears Opth Drops (Propylene Glycol-Glycerin Opth Drops) 1-0.3% Drops 1 Drop EACH EYE BID PRN Pravastatin 80 Mg Tab 80 Mg PO DAILY Colace (Docusate Sodium) 100 Mg Capsule 200 Mg PO BID Norvasc (Amlodipine Besylate) 5 Mg Tab 5 Mg PO DAILY Review of Systems ROS Limitations: Altered Mental Status Physical Exam Narrative GENERAL: Well-nourished, well-developed black female patient, in no acute distress SKIN: Warm and dry. HEAD: Atraumatic. Normocephalic. EYES: Pupils equal and round. ENT: Mucosa pink and moist. NECK: Supple. Trachea midline. CARDIOVASCULAR: Regular rate and rhythm. No murmur appreciated. RESPIRATORY: No accessory muscle use. Clear to auscultation. Breath sounds equal bilaterally. GASTROINTESTINAL: Abdomen soft, non-tender, nondistended. Hepatic and splenic margins not palpable. Bowel sounds are active 4 quadrants. MUSCULOSKELETAL: No obvious deformities. No clubbing. No cyanosis. No edema. BACK: No CVA tenderness. NEUROLOGICAL: Awake and alert. Not oriented No obvious cranial nerve deficits. Motor grossly within normal limits. Normal speech. Moves all extremities. 5/5 strength to all extremities. PSYCHIATRIC: Delusional thought processes. Data Data Last Documented VS Vital Signs Date Time Temp Pulse Resp B/P (MAP) Pulse Ox O2 Delivery O2 Flow Rate FiO2 09/20/17 13:38 99.7 122 16 142/73 (96) 96 Orders Orders Complete Blood Count With Diff (09/20/17 13:56) Comprehensive Metabolic Panel (09/20/17 13:56) Psych Screen (09/20/17 13:56) Drug Screen, Random Urine (09/20/17 13:56) Alcohol (Ethanol) (09/20/17 13:56) Labs Laboratory Tests Test 09/20/17 14:00 [facility] Medical Decision Making Medical Screen Exam Complete: Yes Emergency Medical Condition: Yes Medical Record Reviewed: Yes Differential Diagnosis Amphetamine abuse, schizophrenia with psychosis, altered mental status, medical clearance for psychiatric evaluation Narrative Course Patient presents voluntarily. Physical examination and vital signs are essentially unremarkable. Patient has no medical complaints to report. Patient is answering questions inappropriately and she is delusional. Head CT ordered for altered mental status. Psych screen has been ordered. If the laboratory results are unremarkable, the patient will be medically cleared for psychiatric evaluation and disposition. Diagnosis Primary Impression: Encounter for psychological evaluation Condition: Stable Gina Saini Sep 20, 2017 14:22
[2017-09-20 14:33] LABS: AUTOMATED NEUTROPHIL # 6.6 TH/MM3 (1.8-7.7); BASOPHIL # 0.1 TH/MM3 (0-0.2); BASOPHIL % 1.2 % (0.0-2.0); EOSINOPHIL # 0.2 TH/MM3 (0-0.4); EOSINOPHIL % 1.7 % (0.0-4.0); HEMATOCRIT 34.6 % (35.0-46.0); HEMOGLOBIN 11.7 GM/DL (11.6-15.3); LYMPH % 29.9 % (9.0-44.0); LYMPHOCYTE # 3.1 TH/MM3 (1.0-4.8); MEAN CELL VOLUME 87.4 FL (80.0-100.0); MEAN CORPUSCULAR HEMOGLOBIN 29.4 PG (27.0-34.0); MEAN CORPUSCULAR HGB CONC 33.7 % (32.0-36.0); MEAN PLATELET VOLUME 7.3 FL (7.0-11.0); MONOCYTE # 0.4 TH/MM3 (0-0.9); NEUT % 63.2 % (16.0-70.0); PLATELET COUNT 421 TH/MM3 (150-450); RED BLOOD COUNT 3.96 MIL/MM3 (4.00-5.30); RED CELL DISTRIBUTION WIDTH 14.1 % (11.6-17.2); WHITE BLOOD COUNT 10.5 TH/MM3 (4.0-11.0)
[2017-09-20 14:48] LABS: ALBUMIN 3.5 GM/DL (3.4-5.0); ALT (GPT) 16 U/L (10-53); AST (GOT) 13 U/L (15-37); BICARBONATE 24.5 MEQ/L (21.0-32.0); BLOOD UREA NITROGEN 11 MG/DL (7-18); CALCIUM 9.3 MG/DL (8.5-10.1); CHLORIDE 110 MEQ/L (98-107); CREATININE 0.82 MG/DL (0.50-1.00); GLOMERULAR FILTRATION RATE 87 ML/MIN (>89); GLUCOSE,RANDOM 116 MG/DL (74-106); SODIUM (NA) 143 MEQ/L (136-145)
[2017-09-20 14:51] LABS: ALKALINE PHOSPHATASE 97 U/L (45-117); TOTAL BILIRUBIN ADULT 0.2 MG/DL (0.2-1.0); TOTAL PROTEIN 7.8 GM/DL (6.4-8.2)
--- NOTE | 2017-09-20 15:04 | RADRPT ---
EXAM DATE/TIME: 09/20/2017 14:55 [facility] COMPARISON: CT BRAIN W/O CONTRAST, April 25, 2017, 17:22. INDICATIONS : Altered mental status due to possible substance abuse. RADIATION DOSE: 42.92 CTDIvol (mGy) MEDICAL HISTORY : Cardiovascular disease. Hypertension. Diabetes mellitus type 2. SURGICAL HISTORY : Hysterectomy. ENCOUNTER: Initial ACUITY: 1 day PAIN SCALE: Non-responsive LOCATION: Bilateral cranial TECHNIQUE: Multiple contiguous axial images were obtained of the head. Using automated exposure control and adj ustment of the mA and/or kV according to patient size, radiation dose was kept as low as reasonably a chievable to obtain optimal diagnostic quality images. DICOM format image data is available electro nically for review and comparison. FINDINGS: CEREBRUM: The ventricles are normal for age. No evidence of midline shift, mass lesion, hemorrhage or acute in farction. No extra-axial fluid collections are seen. POSTERIOR FOSSA: The cerebellum and brainstem are intact. The 4th ventricle is midline. The cerebellopontine angle i s unremarkable. EXTRACRANIAL: The visualized portion of the orbits is intact. SKULL: The calvaria is intact. No evidence of skull fracture. CONCLUSION: 1. No acute intracranial abnormality. Stable compared to previous dated 04/25/17. Jeremías Bloom MD on September 20, 2017 at 15:00 Board Certified Radiologist. This report was verified electronically.
[2017-09-20 15:12] LABS: BACTERIA, URINE OCC /hpf; BILIRUBIN, URINE NEG (NEG); BLOOD, URINE NEG (NEG); GLUCOSE,URINE NEG (NEG); HYALINE CAST, URINE 3 /lpf (RARE); KETONE, URINE NEG (NEG); MUCUS URINE FEW /lpf (OCC); NITRITE,URINE NEG (NEG); PH, URINE 5.5 (5.0-8.5); SQUAMOUS EPITHELIAL CELL URINE 6 /hpf (0-5); URINE COLOR YELLOW (YELLW/STRAW); URINE LEUKOCYTE ESTERASE TRACE (NEG)
[2017-09-20 19:00] VITALS: BP 137/87; PULSE 98; RESP 20; TEMP 97.5; O2SAT 100
[2017-09-20 22:15] VITALS: BP 139/93; PULSE 99; RESP 18; TEMP 98; O2SAT 96
[2017-09-20 22:19] LABS: ACETAMINOPHEN LESS THAN 2.0 MCG/ML (10.0-30.0)
[2017-09-21 02:31] VITALS: BP 121/59; PULSE 92; RESP 17; TEMP 98.5; O2SAT 99
[2017-09-21 06:21] VITALS: BP 119/56; PULSE 98; RESP 18; TEMP 97; O2SAT 98
[2017-09-21 10:26] VITALS: BP 138/79; PULSE 113; RESP 16; O2SAT 98
--- NOTE | 2017-09-21 13:11 | PD ---
History of Present Illness Chief Complaint: Psychiatric Symptoms Time Seen by Provider: 12:45 Travel History International Travel<30 Days: No Contact w/Intl Traveler<30days: No Known affected area: No Legal Status Legal Status: Voluntary History of Present Illness: History of Present Illness HPI Patient is a 57-year-old female with history of schizophrenia who apparently was found by our security guards here at [facility] smoking unknown substance in the fountain of our [employer] [place] building. On initial presentation she was not answering questions, was making no sense with rambling speech. The patient was monitored in J pod and she presented no behavioral dysregulation. Did not appear to be responding to internal stimuli. Electronic medical record is reviewed. Nursing documentation is reviewed. Patient has several admissions to her psychiatric unit with the last admission being August 16 and discharged August 30, 2017. Current toxicology is negative for all substances. Seen with Nikko Benavides block and case maker present. This morning the patient is alert, oriented female who is requesting to be discharged. She tells me that she was scared yesterday and that she might have been "smoking pot a little too much". She reports that she began to hear voices and so the person which she lives brought her to the hospital for evaluation. She denies that she is hearing voices now. She does not appear to be internally preoccupied. She denies any suicidal or homicidal ideation, intent or plan. She reports that she is medication compliant and that she follows up with Carlos Holm [facility] Past Medical History Arthritis: No Asthma: Yes Autoimmune Disease: No Blood Disorders: No Anxiety: Yes Depression: Yes Heart Rhythm Problems: No High Cholesterol: Yes Chest Pain: No Congestive Heart Failure: No COPD: No Cerebrovascular Accident: No Coronary Artery Disease: Yes Diminished Hearing: No Endocrine: No GERD: No Glaucoma: No Genitourinary: No Hepatitis: No Hiatal Hernia: No Hypertension: Yes Immune Disorder: No Implanted Vascular Access Dvce: No Kidney Stones: No Musculoskeletal: No Neurologic: No Psychiatric: Yes (Schizoaffective) Reproductive: No Respiratory: No Immunizations Current: No Myocardial Infarction: No Renal Failure: No Schizophrenia: Yes Sleep Apnea: No Thyroid Disease: No Triglycerides - High: Yes Ulcer: No PNEUMOCCOCAL Vaccine (Year): 2008 Menopausal: Yes : 4 Para: 3 Miscarriage: 1 Past Surgical History Abdominal Surgery: Yes (Hysterectomy) AICD: No Arteriovenous Shunt: No Body Medical Devices: VASCULAR ACCESS DEVICE Cardiac Surgery: No Section: Yes Ear Surgery: No Endocrine Surgery: No Eye Surgery: No Genitourinary Surgery: No Gynecologic Surgery: No Hysterectomy: Yes Insulin Pump: No Joint Replacement: No Oral Surgery: No Pacemaker: No Thoracic Surgery: No Psychiatric History Psychiatric History Hx Psychiatric Treatment: Patient was recently at [facility] in 04/26/17 til 05/03/17. Patient has had inpatient services with the [facility] 10/13, and [facility]. Patient reports receives outpatient services through [facility] History of Inpatient Treatment: Yes Guns or firearms in home: No Social History Single, on SSI. Lives in a senior living. Hx Alcohol Use: No Hx Tobacco Use: No Hx Substance Use: Yes Substance Use Type: Marijuana, Cocaine Other Substances Used: Per Security, patient was found on hospital grounds smoking crack. Hx of Substance Use Treatment: No Family Psychiatric History Negative Allergies-Medications (Allergen,Severity, Reaction): Coded Allergies: acetaminophen (Unverified Allergy, Severe, 09/20/17) penicillin G (Unverified Allergy, Severe, 09/20/17) propoxyphene (Unverified Allergy, Unknown, 09/20/17) Reported Meds & Prescriptions Reported Meds & Active Scripts Active Protonix (Pantoprazole Sodium) 20 Mg Tab 20 Mg PO DAILY Metoprolol Tartrate 25 Mg Tab 25 Mg PO Q12HR Ferrous Sulfate 325 Mg (65 Mg Iron) Tablet 325 Mg PO BIDPC Depakote ER (Divalproex Sodium) 500 Mg Skylar 1,000 Mg PO HS Clozapine 200 Mg Tab 300 Mg PO BID Glipizide 10 Mg Tab 10 Mg PO BIDAC Take 30 minutes before a meal Lisinopril 10 Mg Tab 10 Mg PO DAILY Aspirin Low Dose (Aspirin) 81 Mg Chew 81 Mg CHEW DAILY Artificial Tears Opth Drops (Propylene Glycol-Glycerin Opth Drops) 1-0.3% Drops 1 Drop EACH EYE BID PRN Pravastatin 80 Mg Tab 80 Mg PO DAILY Colace (Docusate Sodium) 100 Mg Capsule 200 Mg PO BID Norvasc (Amlodipine Besylate) 5 Mg Tab 5 Mg PO DAILY Review of Systems Except as stated in HPI: all other systems reviewed are Neg Mental Status Examination Appearance: Appropriate (wearing hospital gown) Consciousness: Alert Orientation: x4 Motor Activity: Normal gait Speech: Unremarkable Language: Adequate Fund of Knowledge: Adequate Attention and Concentration: Adequate Memory: Unremarkable Mood: Appropriate Affect: Appropriate Thought Process & Associations: Intact Thought Content: Preoccupations (mild yazidi preoccupation) Hallucination Type: None Delusion Type: None Suicidal Ideation: No Suicidal Plan: No Suicidal Intention: No Homicidal Ideation: No Homicidal Plan: No Homicidal Intention: No Insight: Fair Judgment: Adequate MDM Medical Decision Making Medical Record Reviewed: Yes Assessment/Plan 57-year-old female with history of schizophrenia who was allegedly found on hospital grounds smoking some unknown substance. gate guard believed that it was crack cocaine. The patient's toxicology is negative. She denies that she was smoking crack but admits that she had been smoking marijuana. The patient also reported hallucinations at the time. She was monitored in secure environment and presented no behavioral dysregulation and no psychosis. This morning she is requesting to be discharged and presents no criteria for hospitalization. She reports medication compliance. Hallucinations are part of her baseline functioning and possibly aggravated by use of marijuana. She is provided psychoeducation and strongly recommended to abstain from substances. Encouraged to follow up at [facility]. The patient is psychiatrically clear for discharge from ED. Orders Orders Complete Blood Count With Diff (09/20/17 13:56) Comprehensive Metabolic Panel (09/20/17 13:56) Psych Screen (09/20/17 13:56) Drug Screen, Random Urine (09/20/17 13:56) Alcohol (Ethanol) (09/20/17 13:56) Thyroid Stimulating Hormone (09/20/17 14:30) Urinalysis - C+S If Indicated (09/20/17 14:30) Salicylates (Aspirin) (09/20/17 14:30) Tylenol (Acetaminophen) (09/20/17 14:30) Ct Brain W/O Iv Contrast(Rout) (09/20/17 ) Diet Regular Basic (09/21/17 Breakfast) Diet Regular Basic (09/21/17 Lunch) Results Vital Signs Date Time Temp Pulse Resp B/P (MAP) Pulse Ox O2 Delivery O2 Flow Rate FiO2 09/21/17 10:26 113 16 138/79 (98) 98 Room Air 09/21/17 06:21 97.0 98 18 119/56 (77) 98 09/21/17 02:31 98.5 92 17 121/59 (79) 99 Room Air 09/20/17 22:15 98.0 99 18 139/93 (108) 96 Room Air 09/20/17 19:00 97.5 98 20 137/87 (104) 100 Room Air 09/20/17 13:38 99.7 122 16 142/73 (96) 96 Laboratory Tests Test 09/20/17 14:00 09/20/17 14:47 White Blood Count 10.5 Red Blood Count 3.96 Hemoglobin 11.7 Hematocrit 34.6 Mean Corpuscular Volume 87.4 Mean Corpuscular Hemoglobin 29.4 Mean Corpuscular Hemoglobin Concent 33.7 Red Cell Distribution Width 14.1 Platelet Count 421 Mean Platelet Volume 7.3 Neutrophils (%) (Auto) 63.2 Lymphocytes (%) (Auto) 29.9 Monocytes (%) (Auto) 4.0 Eosinophils (%) (Auto) 1.7 Basophils (%) (Auto) 1.2 Neutrophils # (Auto) 6.6 Lymphocytes # (Auto) 3.1 Monocytes # (Auto) 0.4 Eosinophils # (Auto) 0.2 Basophils # (Auto) 0.1 CBC Comment DIFF FINAL Differential Comment Blood Urea Nitrogen 11 Creatinine 0.82 Random Glucose 116 Total Protein 7.8 Albumin 3.5 Calcium Level 9.3 Alkaline Phosphatase 97 Aspartate Amino Transf (AST/SGOT) 13 Alanine Aminotransferase (ALT/SGPT) 16 Total Bilirubin 0.2 Sodium Level 143 Potassium Level 4.0 Chloride Level 110 Carbon Dioxide Level 24.5 Anion Gap 9 Estimat Glomerular Filtration Rate 87 Thyroid Stimulating Hormone 3rd Gen 1.240 Salicylates Level 3.4 Acetaminophen Level LESS THAN 2.0 Ethyl Alcohol Level LESS THAN 3 Urine Color YELLOW Urine Turbidity HAZY Urine pH 5.5 Urine Specific [place] 1.010 Urine Protein NEG Urine Glucose (UA) NEG Urine Ketones NEG Urine Occult Blood NEG Urine Nitrite NEG Urine Bilirubin NEG Urine Urobilinogen LESS THAN 2.0 Urine Leukocyte Esterase TRACE Urine RBC 1 Urine WBC 7 Urine Squamous Epithelial Cells 6 Urine Bacteria OCC Urine Hyaline Casts 3 Urine Mucus FEW Microscopic Urinalysis Comment CULT NOT INDICATED Urine Opiates Screen NEG Urine Barbiturates Screen NEG Urine Amphetamines Screen NEG Urine Benzodiazepines Screen NEG Urine Cocaine Screen NEG Urine Cannabinoids Screen NEG Diagnosis Primary Impression: Encounter for psychological evaluation Additional Impression: Schizophrenia Psychiatrically Cleared: Yes Med/ Other Pt Specific Info: No Change to Meds Disposition: 01 DISCHARGE HOME Condition: Stable Problem Qualifiers Additional Impression: Schizophrenia Qualified Codes: F20.3 - Undifferentiated schizophrenia Neisha Kinney Sep 21, 2017 13:11
[2017-09-21] MEDS ORDERED: BACT800T5 PO (13:12)
--- NOTE | 2017-09-21 13:39 | PD ---
Physical Exam Date Seen by Provider: Sep 21, 2017 Time Seen by Provider: 13:35 Narrative 57-year-old female that presents to the ED for evaluation of possible psychosis. Patient was seen and evaluated by psychiatry and was deemed dischargable. Patient has no complaints to me. Patient denies taking any drugs yesterday. She does have a significant history of psychiatric illness and substance abuse. Data Data Last Documented VS Vital Signs Date Time Temp Pulse Resp B/P (MAP) Pulse Ox O2 Delivery O2 Flow Rate FiO2 09/21/17 10:26 113 16 138/79 (98) 98 Room Air 09/21/17 06:21 97.0 Orders Orders Complete Blood Count With Diff (09/20/17 13:56) Comprehensive Metabolic Panel (09/20/17 13:56) Psych Screen (09/20/17 13:56) Drug Screen, Random Urine (09/20/17 13:56) Alcohol (Ethanol) (09/20/17 13:56) Thyroid Stimulating Hormone (09/20/17 14:30) Urinalysis - C+S If Indicated (09/20/17 14:30) Salicylates (Aspirin) (09/20/17 14:30) Tylenol (Acetaminophen) (09/20/17 14:30) Ct Brain W/O Iv Contrast(Rout) (09/20/17 ) Diet Regular Basic (09/21/17 Breakfast) Diet Regular Basic (09/21/17 Lunch) Ed Discharge Order (09/21/17 13:34) Labs Laboratory Tests Test 09/20/17 14:00 09/20/17 14:47 White Blood Count 10.5 TH/MM3 Red Blood Count 3.96 MIL/MM3 Hemoglobin 11.7 GM/DL Hematocrit 34.6 % Mean Corpuscular Volume 87.4 FL Mean Corpuscular Hemoglobin 29.4 PG Mean Corpuscular Hemoglobin Concent 33.7 % Red Cell Distribution Width 14.1 % Platelet Count 421 TH/MM3 Mean Platelet Volume 7.3 FL Neutrophils (%) (Auto) 63.2 % Lymphocytes (%) (Auto) 29.9 % Monocytes (%) (Auto) 4.0 % Eosinophils (%) (Auto) 1.7 % Basophils (%) (Auto) 1.2 % Neutrophils # (Auto) 6.6 TH/MM3 Lymphocytes # (Auto) 3.1 TH/MM3 Monocytes # (Auto) 0.4 TH/MM3 Eosinophils # (Auto) 0.2 TH/MM3 Basophils # (Auto) 0.1 TH/MM3 CBC Comment DIFF FINAL Differential Comment Blood Urea Nitrogen 11 MG/DL Creatinine 0.82 MG/DL Random Glucose 116 MG/DL Total Protein 7.8 GM/DL Albumin 3.5 GM/DL Calcium Level 9.3 MG/DL Alkaline Phosphatase 97 U/L Aspartate Amino Transf (AST/SGOT) 13 U/L Alanine Aminotransferase (ALT/SGPT) 16 U/L Total Bilirubin 0.2 MG/DL Sodium Level 143 MEQ/L Potassium Level 4.0 MEQ/L Chloride Level 110 MEQ/L Carbon Dioxide Level 24.5 MEQ/L Anion Gap 9 MEQ/L Estimat Glomerular Filtration Rate 87 ML/MIN Thyroid Stimulating Hormone 3rd Gen 1.240 uIU/ML Salicylates Level 3.4 MG/DL Acetaminophen Level LESS THAN 2.0 MCG/ML Ethyl Alcohol Level LESS THAN 3 MG/DL Urine Color YELLOW Urine Turbidity HAZY Urine pH 5.5 Urine Specific [place] 1.010 Urine Protein NEG mg/dL Urine Glucose (UA) NEG mg/dL Urine Ketones NEG mg/dL Urine Occult Blood NEG Urine Nitrite NEG Urine Bilirubin NEG Urine Urobilinogen LESS THAN 2.0 MG/DL Urine Leukocyte Esterase TRACE Urine RBC 1 /hpf Urine WBC 7 /hpf Urine Squamous Epithelial Cells 6 /hpf Urine Bacteria OCC /hpf Urine Hyaline Casts 3 /lpf Urine Mucus FEW /lpf Microscopic Urinalysis Comment CULT NOT INDICATED Urine Opiates Screen NEG Urine Barbiturates Screen NEG Urine Amphetamines Screen NEG Urine Benzodiazepines Screen NEG Urine Cocaine Screen NEG Urine Cannabinoids Screen NEG MDM Medical Record Reviewed: Yes Supervised Visit with [place]: No Narrative Course 57-year-old female that presents to the ED for evaluation of possible psychosis. Patient was seen and evaluated by psychiatry and was deemed dischargable. Patient has no complaints to me. Patient denies taking any drugs yesterday. She does have a significant history of psychiatric illness and substance abuse. I did review her blood work and she does have a UTI. She will be treated for this with Bactrim prescription she was told she went to get this one for [employer]. Follow with PCP. See ED worsening symptoms. Diagnosis Primary Impression: Encounter for psychological evaluation Additional Impressions: Schizophrenia Qualified Codes: F20.3 - Undifferentiated schizophrenia UTI (urinary tract infection) Qualified Codes: N30.00 - Acute cystitis without hematuria Patient Instructions: General Instructions Additional Instruction: Follow with [facility]. See ED worsening symptoms. Med/Other Pt SpecificInfo: Prescription(s) given Scripts Sulfamethoxazole-Trimethoprim (Bactrim DS) 800-160 Mg Tab 1 TAB PO BID for Infection for 5 Days, #10 TAB 0 Refills Prov: Kareem Vera MD 09/21/17 Disposition: 01 DISCHARGE HOME Condition: Stable Cesar Leon Sep 21, 2017 13:39
== END 2017-09-21 14:52 | disposition home or self-care (01) ==
LOC: NEPD 13:35 → NEPJ 09-21 14:52
DX: F20.3 Undifferentiated schizophrenia (principal); N30.00 Acute cystitis without hematuria; J45.909 Unspecified asthma, uncomplicated; F32.9 Major depressive disorder, single episode, unspecified; E78.00 Pure hypercholesterolemia, unspecified; I25.10 Atherosclerotic heart disease of native coronary artery without angina pectoris; I10 Essential (primary) hypertension; F41.9 Anxiety disorder, unspecified; Z88.0 Allergy status to penicillin; Z88.6 Allergy status to analgesic agent; Z88.8 Allergy status to other drugs, medicaments and biological substances
CPT/HCPCS: 70450; 80053; 80307; 81001; 84443; 85025; 99284

== ENCOUNTER 2017-10-03 19:23 | Inpatient (IN) | payer OTHER ==
[~2017-10-03] VITALS: Ht 157.5 cm; Wt 97.6 kg
[~2017-10-03 19:23] MED LIST changes: +BACT800T5 PO
[2017-10-03 19:25] VITALS: BP 193/110; PULSE 133; RESP 20; TEMP 99.4; O2SAT 98
[2017-10-03] MEDS ORDERED: LORazepam 2 MG/ML VIAL IM ONE (20:30)
[2017-10-03] MEDS ORDERED: HALOPERIDOL LACTATE 5 MG/ML AMP IM ONE (20:30)
[2017-10-03] MEDS ORDERED: SODIUM CHLORIDE 0.9% FLUSH 10 ML FLUSH IVF PRN (20:30)
[2017-10-03 21:00] VITALS: BP 177/94; PULSE 104; RESP 20; TEMP 98; O2SAT 98
[2017-10-03 21:48] LABS: AUTOMATED NEUTROPHIL # 8.8 TH/MM3 (1.8-7.7); BASOPHIL # 0.1 TH/MM3 (0-0.2); BASOPHIL % 0.9 % (0.0-2.0); EOSINOPHIL # 0.2 TH/MM3 (0-0.4); EOSINOPHIL % 1.4 % (0.0-4.0); HEMATOCRIT 32.7 % (35.0-46.0); HEMOGLOBIN 11.9 GM/DL (11.6-15.3); LYMPH % 32.6 % (9.0-44.0); LYMPHOCYTE # 4.7 TH/MM3 (1.0-4.8); MEAN CORPUSCULAR HEMOGLOBIN 31.4 PG (27.0-34.0); MONO % 4.5 % (0.0-8.0); MONOCYTE # 0.6 TH/MM3 (0-0.9); NEUT % 60.6 % (16.0-70.0); PLATELET COUNT 299 TH/MM3 (150-450); RED CELL DISTRIBUTION WIDTH 14.2 % (11.6-17.2); WHITE BLOOD COUNT 14.5 TH/MM3 (4.0-11.0)
[2017-10-03 21:50] LABS: ALT (GPT) 17 U/L (10-53)
[2017-10-03 21:52] LABS: ALKALINE PHOSPHATASE 105 U/L (45-117); TOTAL BILIRUBIN ADULT 0.2 MG/DL (0.2-1.0); TOTAL PROTEIN 8.3 GM/DL (6.4-8.2)
[2017-10-03 21:53] LABS: MEAN CORPUSCULAR HGB CONC 36.6 % (32.0-36.0)
[2017-10-03 22:00] LABS: ALBUMIN 3.9 GM/DL (3.4-5.0); AST (GOT) 24 U/L (15-37); BICARBONATE 27.3 MEQ/L (21.0-32.0); BLOOD UREA NITROGEN 9 MG/DL (7-18); CALCIUM 9.8 MG/DL (8.5-10.1); CHLORIDE 105 MEQ/L (98-107); CREATININE 0.94 MG/DL (0.50-1.00); GLOMERULAR FILTRATION RATE 74 ML/MIN (>89); GLUCOSE,RANDOM 126 MG/DL (74-106); SODIUM (NA) 139 MEQ/L (136-145)
[2017-10-03 22:24] VITALS: BP 161/77; PULSE 100; RESP 20; TEMP 97.9; O2SAT 98
--- NOTE | 2017-10-03 23:22 | PD ---
HPI Chief Complaint: Psychiatric Symptoms Time Seen by Provider: 20:23 Travel History International Travel<30 days: No Contact w/Intl Traveler<30days: No Traveled to known affect area: No History of Present Illness HPI Patient is a 57-year-old female brought in by her caregiver for psychiatric evaluation. Patient has a history of schizoaffective disorder, bipolar disorder. She has been noncompliant with her medications for the last 4 days. She is hallucinating, delusional and paranoid in the emergency department. She is a poor historian and is not forthcoming with information. Patient continues to talk about the devil "telling her to not take her medications, the devil is inside of her, she reported that she will until Khalif does so". Patient reported that she had burning from her "cooch" when she urinated at home. Patient does not quantify her pain. She is not forthcoming with any other symptomatology. PFSH Past Medical History Asthma: Yes Anxiety: Yes Depression: Yes Cardiovascular Problems: Yes High Cholesterol: Yes Coronary Artery Disease: Yes Diabetes: Yes Patient Takes Glucophage: Yes Hypertension: Yes Psychiatric: Yes (Schizoaffective) Immunizations Current: Yes Schizophrenia: Yes Triglycerides - High: Yes Tetanus Vaccination: < 5 Years Influenza Vaccination: Yes PNEUMOCCOCAL Vaccine (Year): 2008 ?: Not Menopausal: Yes : 4 Para: 3 Miscarriage: 1 Past Surgical History Section: Yes Hysterectomy: Yes Social History Alcohol Use: No Tobacco Use: No Substance Use: Yes Allergies-Medications (Allergen,Severity, Reaction): Coded Allergies: acetaminophen (Unverified Allergy, Severe, 10/03/17) penicillin G (Unverified Allergy, Severe, 10/03/17) propoxyphene (Unverified Allergy, Unknown, 10/03/17) Reported Meds & Prescriptions Reported Meds & Active Scripts Active Protonix (Pantoprazole Sodium) 20 Mg Tab 20 Mg PO DAILY Metoprolol Tartrate 25 Mg Tab 25 Mg PO Q12HR Ferrous Sulfate 325 Mg (65 Mg Iron) Tablet 325 Mg PO BIDPC Depakote ER (Divalproex Sodium) 500 Mg Skylar 1,000 Mg PO HS Clozapine 200 Mg Tab 300 Mg PO BID Glipizide 10 Mg Tab 10 Mg PO BIDAC Take 30 minutes before a meal Lisinopril 10 Mg Tab 10 Mg PO DAILY Aspirin Low Dose (Aspirin) 81 Mg Chew 81 Mg CHEW DAILY Artificial Tears Opth Drops (Propylene Glycol-Glycerin Opth Drops) 1-0.3% Drops 1 Drop EACH EYE BID PRN Pravastatin 80 Mg Tab 80 Mg PO DAILY Colace (Docusate Sodium) 100 Mg Capsule 200 Mg PO BID Norvasc (Amlodipine Besylate) 5 Mg Tab 5 Mg PO DAILY Review of Systems Except as stated in HPI: all other systems reviewed are Neg Genitourinary: Positive: Dysuria Psychiatric: Positive: Disorder of Thought, Mood Disorder Physical Exam Exam Limitations: Psychotic Narrative GENERAL: Overweight, well-developed, alert female. Disheveled SKIN: Warm and dry. HEAD: Atraumatic. Normocephalic. EYES: Pupils equal and round. No scleral icterus. No injection or drainage. ENT: No nasal bleeding or discharge. Mucous membranes pink and moist. NECK: Trachea midline. No JVD. CARDIOVASCULAR: Tachycardic RESPIRATORY: No accessory muscle use. Clear to auscultation. Breath sounds equal bilaterally. GASTROINTESTINAL: Abdomen soft, non-tender, nondistended. Hepatic and splenic margins not palpable. MUSCULOSKELETAL: Extremities without clubbing, cyanosis, or edema. No obvious deformities. NEUROLOGICAL: Awake and alert. No obvious cranial nerve deficits. Motor grossly within normal limits. Five out of 5 muscle strength in the arms and legs. Normal speech. PSYCHIATRIC: Delusional, paranoid, hallucinating Data Data Last Documented VS Vital Signs Date Time Temp Pulse Resp B/P (MAP) Pulse Ox O2 Delivery O2 Flow Rate FiO2 10/03/17 22:24 97.9 100 20 161/77 (105) 98 Room Air Orders Orders Haloperidol Inj (Haldol Inj) (10/03/17 20:30) Lorazepam Inj (Ativan Inj) (10/03/17 20:30) Complete Blood Count With Diff (10/03/17 20:30) Comprehensive Metabolic Panel (10/03/17 20:30) Iv Access Insert/Monitor (10/03/17 20:30) Ecg Monitoring (10/03/17 20:30) Psych Screen (10/03/17 20:30) Sodium Chloride 0.9% Flush (Ns Flush) (10/03/17 20:30) Urinalysis - C+S If Indicated (10/03/17 22:48) Labs Laboratory Tests Test 10/03/17 20:50 White Blood Count 14.5 TH/MM3 Red Blood Count 3.80 MIL/MM3 Hemoglobin 11.9 GM/DL Hematocrit 32.7 % Mean Corpuscular Volume 86.0 FL Mean Corpuscular Hemoglobin 31.4 PG Mean Corpuscular Hemoglobin Concent 36.6 % Red Cell Distribution Width 14.2 % Platelet Count 299 TH/MM3 Mean Platelet Volume 8.0 FL Neutrophils (%) (Auto) 60.6 % Lymphocytes (%) (Auto) 32.6 % Monocytes (%) (Auto) 4.5 % Eosinophils (%) (Auto) 1.4 % Basophils (%) (Auto) 0.9 % Neutrophils # (Auto) 8.8 TH/MM3 Lymphocytes # (Auto) 4.7 TH/MM3 Monocytes # (Auto) 0.6 TH/MM3 Eosinophils # (Auto) 0.2 TH/MM3 Basophils # (Auto) 0.1 TH/MM3 CBC Comment AUTO DIFF Differential Comment AUTO DIFF CONFIRMED Blood Urea Nitrogen 9 MG/DL Creatinine 0.94 MG/DL Random Glucose 126 MG/DL Total Protein 8.3 GM/DL Albumin 3.9 GM/DL Calcium Level 9.8 MG/DL Alkaline Phosphatase 105 U/L Aspartate Amino Transf (AST/SGOT) 24 U/L Alanine Aminotransferase (ALT/SGPT) 17 U/L Total Bilirubin 0.2 MG/DL Sodium Level 139 MEQ/L Potassium Level 3.9 MEQ/L Chloride Level 105 MEQ/L Carbon Dioxide Level 27.3 MEQ/L Anion Gap 7 MEQ/L Estimat Glomerular Filtration Rate 74 ML/MIN MDM Medical Decision Making Medical Screen Exam Complete: Yes Emergency Medical Condition: Yes Medical Record Reviewed: Yes Interpretation(s) Laboratory Tests Test 10/03/17 20:50 White Blood Count 14.5 TH/MM3 Red Blood Count 3.80 MIL/MM3 Hemoglobin 11.9 GM/DL Hematocrit 32.7 % Mean Corpuscular Volume 86.0 FL Mean Corpuscular Hemoglobin 31.4 PG Mean Corpuscular Hemoglobin Concent 36.6 % Red Cell Distribution Width 14.2 % Platelet Count 299 TH/MM3 Mean Platelet Volume 8.0 FL Neutrophils (%) (Auto) 60.6 % Lymphocytes (%) (Auto) 32.6 % Monocytes (%) (Auto) 4.5 % Eosinophils (%) (Auto) 1.4 % Basophils (%) (Auto) 0.9 % Neutrophils # (Auto) 8.8 TH/MM3 Lymphocytes # (Auto) 4.7 TH/MM3 Monocytes # (Auto) 0.6 TH/MM3 Eosinophils # (Auto) 0.2 TH/MM3 Basophils # (Auto) 0.1 TH/MM3 CBC Comment AUTO DIFF Differential Comment AUTO DIFF CONFIRMED Blood Urea Nitrogen 9 MG/DL Creatinine 0.94 MG/DL Random Glucose 126 MG/DL Total Protein 8.3 GM/DL Albumin 3.9 GM/DL Calcium Level 9.8 MG/DL Alkaline Phosphatase 105 U/L Aspartate Amino Transf (AST/SGOT) 24 U/L Alanine Aminotransferase (ALT/SGPT) 17 U/L Total Bilirubin 0.2 MG/DL Sodium Level 139 MEQ/L Potassium Level 3.9 MEQ/L Chloride Level 105 MEQ/L Carbon Dioxide Level 27.3 MEQ/L Anion Gap 7 MEQ/L Estimat Glomerular Filtration Rate 74 ML/MIN Vital Signs Date Time Temp Pulse Resp B/P (MAP) Pulse Ox O2 Delivery O2 Flow Rate FiO2 10/03/17 22:24 97.9 100 20 161/77 (105) 98 Room Air 10/03/17 21:00 98.0 104 20 177/94 (121) 98 Room Air 10/03/17 19:25 99.4 133 20 193/110 (137) 98 Room Air Differential Diagnosis Mood disorder versus psychosis versus noncompliance versus schizophrenia versus other Narrative Course Patient is a 57-year-old female presenting with her caregiver for psychiatric evaluation due to medication noncompliance, increased delusions, hallucinations and paranoia. Patient was hypertensive and tachycardic on arrival likely secondary to noncompliance. She was observed hallucinating, she was acting very paranoid and agitated talk about the devil and Khalif. Patient was given Haldol and Ativan to help calm her as she was pacing the room and becoming very agitated. A Perez act was initiated. Labs reviewed, CBC with mildly elevated white blood cell count at 14, could be stress related. Labs are otherwise unremarkable. Urinalysis is ordered and pending. Mental health screening discussed with the patient. Psychiatric screen ordered. Patient is medically cleared for psychiatric evaluation at this time. Diagnosis Primary Impression: Encounter for psychological evaluation Additional Impressions: Medical clearance for psychiatric admission Hypertension Qualified Codes: I10 - Essential (primary) hypertension Condition: Stable Krysta Henderson Oct 03, 2017 23:22
[2017-10-03 23:41] VITALS: BP 109/54; PULSE 99; RESP 20; TEMP 98; O2SAT 98
[2017-10-04 01:16] LABS: BACTERIA, URINE RARE /hpf; BILIRUBIN, URINE NEG (NEG); BLOOD, URINE NEG (NEG); GLUCOSE,URINE NEG (NEG); KETONE, URINE NEG (NEG); NITRITE,URINE NEG (NEG); SQUAMOUS EPITHELIAL CELL URINE 1 /hpf (0-5); URINE COLOR LIGHT-YELLOW (YELLW/STRAW); URINE LEUKOCYTE ESTERASE NEG (NEG)
[2017-10-04 02:54] VITALS: BP 111/65; PULSE 90; RESP 20; TEMP 98.2; O2SAT 98
[2017-10-04 08:10] VITALS: BP 153/100; PULSE 54; RESP 21; O2SAT 98
[2017-10-04 13:00] VITALS: BP 132/67; PULSE 115; RESP 24; O2SAT 96
[2017-10-04 14:12] VITALS: BP 124/62; PULSE 112; PULSE 82; RESP 18; TEMP 98.4; O2SAT 98
[2017-10-04 18:13] VITALS: BP 150/65; PULSE 104; RESP 18; O2SAT 95
--- NOTE | 2017-10-04 18:30 | PD ---
History of Present Illness Chief Complaint: Psychiatric Symptoms Time Seen by Provider: 16:50 Travel History International Travel<30 Days: No Contact w/Intl Traveler<30days: No Known affected area: No Legal Status Legal Status: Involuntary Perez Act Signed By: Sakshi Perez Act Comment: CERTIFICATE OF PROFESSIONAL INITIATING INVOLUNTARY EXAMINATION10/03/17@6572 History of Present Illness: History of Present Illness HPI Patient is a 57-year-old female with history of schizophrenia known to [facility], with more than ten previous admissions to our psychiatric unit who is brought in by her caregiver for psychiatric evaluation. She has been noncompliant with her medications for the last 4 days. She is reported to have been" hallucinating, delusional and paranoid in the emergency department." She is a poor historian and is not forthcoming with information and is very difficult to interview her. Patient continues to talk about the devil "telling her to not take her medications, the devil is inside of her, she reported that she will until Khalif does so". Electronic medical record, the patient was most recently seen in our emergency department on September 20. At that time she was found by security guards smoking on the outside of our facilities and it was believed that she may have been smoking crack. However her toxicology was negative. She did admit at the time to smoking marijuana. Her last inpatient psychiatric admission was August 16, 2017. The patient is seen in [facility]. She answers some questions but it's difficult to interview her. She is internally preoccupied and tangential. She states that she is in the hospital because she "has a bad booty ache". She also tells me that she's been hearing voices and that "the father has been calling me home". She does not disclose her suicidal plan at this time. PFSH Past Medical History Asthma: Yes Anxiety: Yes Depression: Yes Cardiovascular Problems: Yes High Cholesterol: Yes Coronary Artery Disease: Yes Diabetes: Yes Patient Takes Glucophage: Yes Hypertension: Yes Psychiatric: Yes (Schizoaffective) Immunizations Current: Yes Schizophrenia: Yes Triglycerides - High: Yes Tetanus Vaccination: < 5 Years Influenza Vaccination: Yes PNEUMOCCOCAL Vaccine (Year): 2008 ?: Not Menopausal: Yes : 4 Para: 3 Miscarriage: 1 Past Surgical History Section: Yes Hysterectomy: Yes Psychiatric History Psychiatric History Hx Psychiatric Treatment: Patient was recently at [facility] in July 2017. Patient has had inpatient services with the [facility] 10/13, and [facility]. Patient reports receives outpatient services through [facility] History of Inpatient Treatment: Yes Guns or firearms in home: No Social History , female who lives in a [facility]cf[facility]. Has 3 children. On disability. Hx Alcohol Use: No Hx Tobacco Use: No Hx Substance Use: Yes Substance Use Type: Crack, Marijuana, Cocaine Hx of Substance Use Treatment: No Family Psychiatric History Negative Allergies-Medications (Allergen,Severity, Reaction): Coded Allergies: acetaminophen (Unverified Allergy, Severe, 10/03/17) penicillin G (Unverified Allergy, Severe, 10/03/17) propoxyphene (Unverified Allergy, Unknown, 10/03/17) Reported Meds & Prescriptions Reported Meds & Active Scripts Active Protonix (Pantoprazole Sodium) 20 Mg Tab 20 Mg PO DAILY Metoprolol Tartrate 25 Mg Tab 25 Mg PO Q12HR Ferrous Sulfate 325 Mg (65 Mg Iron) Tablet 325 Mg PO BIDPC Depakote ER (Divalproex Sodium) 500 Mg Skylar 1,000 Mg PO HS Clozapine 200 Mg Tab 300 Mg PO BID Glipizide 10 Mg Tab 10 Mg PO BIDAC Take 30 minutes before a meal Lisinopril 10 Mg Tab 10 Mg PO DAILY Aspirin Low Dose (Aspirin) 81 Mg Chew 81 Mg CHEW DAILY Artificial Tears Opth Drops (Propylene Glycol-Glycerin Opth Drops) 1-0.3% Drops 1 Drop EACH EYE BID PRN Pravastatin 80 Mg Tab 80 Mg PO DAILY Colace (Docusate Sodium) 100 Mg Capsule 200 Mg PO BID Norvasc (Amlodipine Besylate) 5 Mg Tab 5 Mg PO DAILY Review of Systems ROS Limitations: Psychotic Mental Status Examination Appearance: Appropriate Consciousness: Alert Orientation: Person, Place, Date/Time (partial), Situation Motor Activity: Normal gait Speech: Slow Language: Adequate Fund of Knowledge: Inadequate Attention and Concentration: Other (internally preoccupied) Memory: Unremarkable (unable to assess) Mood: Sad Affect: Blunt Thought Process & Associations: Disorganized Thought Content: Bizarre thinking Hallucination Type: Auditory (possible) Delusion Type: Other (religiously preoccupied) Suicidal Ideation: No Suicidal Plan: No Suicidal Intention: No Homicidal Ideation: No Homicidal Plan: No Homicidal Intention: No Insight: Poor Judgment: Poor MDM Medical Decision Making Medical Record Reviewed: Yes Assessment/Plan Patient is a 57-year-old female with history of schizophrenia known to [facility] psychiat[facility], with more than ten previous admissions to our psychiatric unit who is brought in by her caregiver for psychiatric evaluation. She has been noncompliant with her medications for the last 4 days. She is reported to have been" hallucinating, delusional and paranoid in the emergency department." She is a poor historian and is not forthcoming with information and is very difficult to interview her. Patient continues to talk about the devil "telling her to not take her medications, the devil is inside of her, she reported that she will until Khalif does so". Patient at this time has been off her medications 4 days and requires inpatient psychiatric hospitalization for further evaluation, safety, to resume her medications. Orders Orders Haloperidol Inj (Haldol Inj) (10/03/17 20:30) Lorazepam Inj (Ativan Inj) (10/03/17 20:30) Complete Blood Count With Diff (10/03/17 20:30) Comprehensive Metabolic Panel (10/03/17 20:30) Iv Access Insert/Monitor (10/03/17 20:30) Ecg Monitoring (10/03/17 20:30) Psych Screen (10/03/17 20:30) Sodium Chloride 0.9% Flush (Ns Flush) (10/03/17 20:30) Urinalysis - C+S If Indicated (10/03/17 22:48) Diet Regular Basic (10/04/17 Breakfast) Drug Screen, Random Urine (10/04/17 07:34) Diet Regular Basic (10/04/17 Dinner) Results Vital Signs Date Time Temp Pulse Resp B/P (MAP) Pulse Ox O2 Delivery O2 Flow Rate FiO2 10/04/17 18:13 104 18 150/65 (93) 95 Room Air 10/04/17 14:12 98.4 112 18 124/62 (82) 98 Room Air 10/04/17 13:00 115 24 132/67 (88) 96 Room Air 10/04/17 08:10 54 21 153/100 (117) 98 Room Air 10/04/17 02:54 98.2 90 20 111/65 (80) 98 Room Air 10/03/17 23:41 98.0 99 20 109/54 (72) 98 Room Air 10/03/17 22:24 97.9 100 20 161/77 (105) 98 Room Air 10/03/17 21:00 98.0 104 20 177/94 (121) 98 Room Air 10/03/17 19:25 99.4 133 20 193/110 (137) 98 Room Air Laboratory Tests Test 10/03/17 20:50 10/04/17 01:00 White Blood Count 14.5 Red Blood Count 3.80 Hemoglobin 11.9 Hematocrit 32.7 Mean Corpuscular Volume 86.0 Mean Corpuscular Hemoglobin 31.4 Mean Corpuscular Hemoglobin Concent 36.6 Red Cell Distribution Width 14.2 Platelet Count 299 Mean Platelet Volume 8.0 Neutrophils (%) (Auto) 60.6 Lymphocytes (%) (Auto) 32.6 Monocytes (%) (Auto) 4.5 Eosinophils (%) (Auto) 1.4 Basophils (%) (Auto) 0.9 Neutrophils # (Auto) 8.8 Lymphocytes # (Auto) 4.7 Monocytes # (Auto) 0.6 Eosinophils # (Auto) 0.2 Basophils # (Auto) 0.1 CBC Comment AUTO DIFF Differential Comment AUTO DIFF CONFIRMED Blood Urea Nitrogen 9 Creatinine 0.94 Random Glucose 126 Total Protein 8.3 Albumin 3.9 Calcium Level 9.8 Alkaline Phosphatase 105 Aspartate Amino Transf (AST/SGOT) 24 Alanine Aminotransferase (ALT/SGPT) 17 Total Bilirubin 0.2 Sodium Level 139 Potassium Level 3.9 Chloride Level 105 Carbon Dioxide Level 27.3 Anion Gap 7 Estimat Glomerular Filtration Rate 74 Urine Color LIGHT-YELLOW Urine Turbidity CLEAR Urine pH 5.0 Urine Specific Evans 1.004 Urine Protein NEG Urine Glucose (UA) NEG Urine Ketones NEG Urine Occult Blood NEG Urine Nitrite NEG Urine Bilirubin NEG Urine Urobilinogen LESS THAN 2.0 Urine Leukocyte Esterase NEG Urine RBC LESS THAN 1 Urine WBC 1 Urine Squamous Epithelial Cells 1 Urine Bacteria RARE Microscopic Urinalysis Comment CULT NOT INDICATED Urine Opiates Screen NEG Urine Barbiturates Screen NEG Urine Amphetamines Screen NEG Urine Benzodiazepines Screen NEG Urine Cocaine Screen NEG Urine Cannabinoids Screen NEG Diagnosis Primary Impression: Schizophrenia Additional Impression: Hypertension Admitting Information Admitting Physician Requests: Admit Condition: Stable Problem Qualifiers Primary Impression: Schizophrenia Qualified Codes: F20.9 - Schizophrenia, unspecified Additional Impression: Hypertension Qualified Codes: I10 - Essential (primary) hypertension Neisha Kinney Oct 04, 2017 18:30
[2017-10-04 18:35] VITALS: BP 128/66; PULSE 100; RESP 16; TEMP 98.1; O2SAT 97
[2017-10-04] MEDS ORDERED: MAGNESIUM HYDROXIDE SUSP 30 ML CUP PO PRN (19:00)
[2017-10-04] MEDS ORDERED: ALUMINUM/MAGNESIUM/SIMETH 30 ML CUP PO PRN (19:00)
[2017-10-04] MEDS: METOPROLOL TARTRATE 25 MG TAB PO SCH (21:40)
[2017-10-05 05:55] VITALS: BP 124/75; PULSE 106; RESP 18; TEMP 98.1; O2SAT 99
[2017-10-05] MEDS: glipiZIDE 10 MG TAB PO SCH ×2 (06:21→16:37)
[2017-10-05 09:01] LABS: BLOOD UREA NITROGEN 9 MG/DL (7-18); CALCIUM 8.9 MG/DL (8.5-10.1); CHLORIDE 106 MEQ/L (98-107); CHOLESTEROL 167 MG/DL (120-200); CHOLESTEROL/ HDL RATIO 3.56 RATIO; GLOMERULAR FILTRATION RATE 104 ML/MIN (>89); GLUCOSE,RANDOM 94 MG/DL (74-106); HDL CHOLESTEROL 46.9 MG/DL (40.0-60.0); LDL CHOLESTEROL 102 MG/DL (0-99); SODIUM (NA) 141 MEQ/L (136-145); TRIGLYCERIDES 92 MG/DL (42-150)
[2017-10-05] MEDS: LISINOPRIL 10 MG TAB PO SCH (09:10)
[2017-10-05] MEDS: amLODIPine BESYLATE 5 MG TAB PO SCH (09:11)
[2017-10-05] MEDS: METOPROLOL TARTRATE 25 MG TAB PO SCH ×2 (09:11→21:37)
[2017-10-05] MEDS: PRAVASTATIN SOD 80 MG TAB PO SCH (09:11)
[2017-10-05] MEDS ORDERED: ARTIFICIAL TEARS OPTH SOLN 15 ML BTL EACH EYE PRN (10:15)
[2017-10-05] MEDS ORDERED: hydrOXYzine HCL 50 MG TAB PO PRN (10:30)
--- NOTE | 2017-10-05 10:48 | HHI.HP ---
Provisional Diagnosis Admission Date Oct 04, 2017 at 18:50 [place] I. Schizophrenia chronic paranoid type f 20.0 Certification of Person's Competence To Provide Express and Informed Consent I have personally examined Cierra Araya , a person being served at [facility] on, Oct 05, 2017 10:24. Express and informed consent means consent voluntarily given in writing, by a competent person, after sufficient explanation and disclosure of the subject matter involved to enable the person to make a knowing and willful decision without any element of force, fraud, deceit, duress, or other form of constraint or coercion. This person is 18 years of age or older, is not now known to be incompetent to consent to treatment with a guardian advocate, and does not have a health care surrogate or proxy currently making medical treatment decisions. I have found this person to be one of the following: [] Competent to provide express and informed consent, as defined above, for voluntary admission to this facility and is competent to provide express and informed consent for treatment. He/she has the consistent capacity to make well reasoned, willful, and knowing decisions concerning his or her medical or mental health treatment. The person fully and consistently understands the purpose of the admission for examination/placement and is fully capable of personally exercising all rights assured [place] [] Incompetent to provide express and informed consent to voluntary admission, and this is incompetent to provide express and informed consent to treatment. The person must be transferred to involuntary status and a petition for a guardian advocate filed with the Circuit Court. [xxx] Refusing to provide express and informed consent to voluntary admission but is competent to provide express and informed consent for treatment. The person must be discharged or transferred to involuntary status. Form shall be completed within 24 hours of a person's arrival at the receiving facility and filed in the clinical record of each person: 1. Admitted on a voluntary basis 2. Permitted to provide express and informed consent to his/her own treatment 3. Allowed to transfer from involuntary to voluntary status 4. Prior to permitting a person to consent to his or her own treatment after having been previously found incompetent to consent to treatment. History of Present Illness Capacity: Lacks Capacity HPI Patient is a 57-year-old Afro-Filipino female well known to us from multiple prior contacts comes here under Perez act signed by Dr. velasquez [facility] dated October 03, 2017 at 2030 p.m. the document reviewed essentially stating patient has been noncompliant with medications for 4 days she is hallucinating and delusional and paranoid patient disheveled and agitated in the emergency department patient seen screened in the emergency department urine toxicology negative there was both Depakote blood level drawn. Review of our EMR shows patient has had contact with us related to her mental illness going back to 2001. At the present time patient standing in the morrow, present with id or family practice resident Rosa, nurse practitioner Misty and nurse Arben. Patient showing significant psychosis with auditory hallucinations of various voices mainly spiritual. But also of her "daddy" there may be visual components related to this also. There may be also tactile components complaining of itching pain and sensations in her "booty". She acknowledges noncompliance with medication that the voices are telling her not to take the medicine. She also states that she has been using some alcohol and marijuana. Though urine toxicology was negative for blood alcohol level was negative. At this time patient meets criteria for involuntary psychiatric hospital position of the Perez act. I will do first opinion request second opinion. Left which has capacity to sign for medications.. Will hospitalist consult was also suggests complaining some vaginal discharge. Hopeless. Fairly short stay and we can return her to her ch[facility] Review of Systems Constitutional: DENIES: Diaphoretic episodes, Fatigue, Fever, Weight gain, Weight loss, Chills, Dizziness, Change in appetite, Night Sweats Endocrine: DENIES: Abnorml menstrual pattern, Heat/cold intolerance, Polydipsia , Polyuria, Polyphagia Eyes: DENIES: Blurred vision, Diplopia, Eye inflammation, Eye pain, Vision loss , Photosensitivity, Double Vision Ears, nose, mouth, throat: DENIES: Tinnitus, Hearing loss, Vertigo, Nasal discharge, Oral lesions, Throat pain, Hoarseness, Ear Pain, Running Nose, Epistaxis, Sinus Pain, Toothache, Odynophagia Respiratory: DENIES: Apneas, Cough, Snoring, Wheezing, Hemoptysis, Sputum production, Shortness of breath Gastrointestinal: DENIES: Abdominal pain, Black stools, Bloody stools, Constipation, Diarrhea, Nausea, Vomiting, Difficulty Swallowing, Anorexia Genitourinary: COMPLAINS OF: Vaginal discharge Musculoskeletal: DENIES: Joint pain, Muscle aches, Stiffness, Joint Swelling, Back pain, Neck pain Integumentary: DENIES: Abnormal pigmentation, Pruritus, Rash, Nail changes, Breast masses, Breast skin changes, Nipple discharge Hematologic/lymphatic: DENIES: Bruising, Lymphadenopathy Immunologic/allergic: DENIES: Eczema, Urticaria Neurologic: DENIES: Abnormal gait, Headache, Localized weakness, Paresthesias, Seizures, Speech Problems, Tremor, Poor Balance Psychiatric: COMPLAINS OF: Anxiety, Mood changes, Depression, Hallucinations, Agitation, Delusions Past Psych History Psychological trauma history Patient denies at this time Violence risk - others (6 mos) Low Violence risk - self (6 mos) Low to moderate there is some command auditory hallucinations Substance Abuse History Drugs/Alcohol past 12 months Patient states she has been using alcohol and marijuana although urine toxicology and blood alcohol levels are negative Past Family Social History Coded Allergies: acetaminophen (Unverified Allergy, Severe, 10/03/17) penicillin G (Unverified Allergy, Severe, 10/03/17) propoxyphene (Unverified Allergy, Unknown, 10/03/17) Active Scripts Pantoprazole (Protonix) 20 Mg Tab, 20 MG PO DAILY for health, #30 TAB 0 Refills Prov:Monster Ordonez MD 08/30/17 Metoprolol Tartrate (Metoprolol Tartrate) 25 Mg Tab, 25 MG PO Q12HR for health, #60 TAB 0 Refills Prov:Monster Ordonez MD 08/30/17 Ferrous Sulfate (Ferrous Sulfate) 325 Mg (65 Mg Iron) Tablet, 325 MG PO BIDPC for Nutritional Supplement, #60 TAB 0 Refills Prov:Monster Ordonez MD 08/30/17 Divalproex ER (Depakote ER) 500 Mg Skylar, 1000 MG PO HS for Control Seizures, # 60 TAB 0 Refills Prov:Monster Ordonez MD 08/30/17 Clozapine (Clozapine) 200 Mg Tab, 300 MG PO BID for Schizophrenia, #180 TAB 0 Refills Prov:Monster Ordonez MD 08/30/17 Glipizide (Glipizide) 10 Mg Tab, 10 MG PO BIDAC for Blood Sugar Management, #60 TAB 0 Refills Take 30 minutes before a meal Prov:Monster Ordonez MD 08/30/17 Lisinopril (Lisinopril) 10 Mg Tab, 10 MG PO DAILY, #30 TAB 0 Refills Prov:Monster Ordonez MD 08/30/17 Aspirin (Aspirin Low Dose) 81 Mg Chew, 81 MG CHEW DAILY for health, #30 TAB 0 Refills Prov:Monster Ordonez MD 08/30/17 Propylene Glycol-Glycerin Opth Drops (Artificial Tears Opth Drops) 1-0.3% Drops , 1 DROP EACH EYE BID Y for health, #15 ML 0 Refills Prov:Monster Ordonez MD 08/30/17 Pravastatin (Pravastatin) 80 Mg Tab, 80 MG PO DAILY for Cholesterol Management, #30 TAB 0 Refills Prov:Monster Ordonez MD 08/30/17 Docusate Sodium (Colace) 100 Mg Capsule, 200 MG PO BID for health, #60 CAP 0 Refills Prov:Monster Ordonez MD 08/30/17 Amlodipine (Norvasc) 5 Mg Tab, 5 MG PO DAILY for Blood Pressure Management, #30 TAB 0 Refills Prov:Edie Good MD 05/06/17 Discontinued Scripts Sulfamethoxazole-Trimethoprim (Bactrim DS) 800-160 Mg Tab, 1 TAB PO BID for Infection for 5 Days, #10 TAB 0 Refills Prov:Kareem Vera MD 09/21/17 Current Medications Medications (Trade) Dose Ordered Sig/Tori Route Start Time Stop Time Status Last Admin (NS Flush) 2 ml UNSCH PRN IVF 10/03/17 20:30 10/03/17 20:40 (Milk Of Magnesia Liq) 30 ml DAILY PRN PO 10/04/17 19:00 (Mag-Al Plus Susp Liq) 30 ml Q6H PRN PO 10/04/17 19:00 (Norvasc) 5 mg DAILY PO 10/05/17 09:00 10/05/17 09:11 (Glucotrol) 10 mg BIDAC PO 10/05/17 07:00 10/05/17 06:21 (Prinivil) 10 mg DAILY PO 10/05/17 09:00 10/05/17 09:10 (Lopressor) 25 mg Q12HR PO 10/04/17 21:00 10/05/17 09:11 (Pravachol) 80 mg DAILY PO 10/05/17 09:00 10/05/17 09:11 (Clozaril) 300 mg BID PO 10/05/17 10:15 UNV (Depakote Er) 1,000 mg HS PO 10/05/17 21:00 UNV (Colace) 200 mg BID PO 10/05/17 21:00 UNV (Ferrous Sulfate) 325 mg BIDPC PO 10/05/17 18:00 UNV (Protonix) 20 mg DAILY PO 10/06/17 09:00 UNV (Tears Naturale Opth Soln) 1 drop BID PRN EACH EYE 10/05/17 10:15 UNV (Benadryl) 50 mg HS PRN PO 10/05/17 10:30 UNV Family Psych History Unknown at this time Social History Patient has been in the past has adult children now lives in chcf Patient's Strengths (min. 2) Patient verbal label axis healthcare Physical Exam Patient seen screened in ED exam reviewed and agreed with at the present time patient semi-quietly in all she is in no acute distress, she is in no respiratory distress, no complaints of abdominal pain. Patient moves all 4 extremities without difficulty. There may be some fine motor movements noted around her lips and mouth Vital Signs Vital Signs Date Time Temp Pulse Resp B/P (MAP) Pulse Ox O2 Delivery O2 Flow Rate FiO2 10/05/17 05:55 98.1 106 18 124/75 (91) 99 10/04/17 18:13 Room Air Lab Results Test 10/05/17 07:58 Blood Urea Nitrogen 9 MG/DL Creatinine 0.70 MG/DL Random Glucose 94 MG/DL Calcium Level 8.9 MG/DL Sodium Level 141 MEQ/L Potassium Level 4.0 MEQ/L Chloride Level 106 MEQ/L Carbon Dioxide Level 30.0 MEQ/L Anion Gap 5 MEQ/L Estimat Glomerular Filtration Rate 104 ML/MIN Triglycerides Level 92 MG/DL Cholesterol Level 167 MG/DL LDL Cholesterol 102 MG/DL HDL Cholesterol 46.9 MG/DL Cholesterol/HDL Ratio 3.56 RATIO Mental Status Examination Appearance: Appropriate Consciousness: Alert Orientation: Person, Place, Date/Time (partial), Situation Motor Activity: Normal gait Speech: Pressured, Slow Language: Adequate Fund of Knowledge: Inadequate Attention and Concentration: Other (internally preoccupied) Memory: Unremarkable (unable to assess) Mood: Sad, Irritable (mildly) Affect: Other Thought Process & Associations: Disorganized Thought Content: Bizarre thinking Hallucination Type: Auditory (possible), Tactile (vague in the vaginal area) Delusion Type: Other (religiously preoccupied) Suicidal Ideation: No Suicidal Plan: No Suicidal Intention: No Homicidal Ideation: No Homicidal Plan: No Homicidal Intention: No Insight: Poor Judgment: Poor Assessment & Plan Problem List: (1) Schizophrenia ICD Codes: F20.9 - Schizophrenia, unspecified Assessment & Plan Estimated LOS 5-7: days this time patient is quite psychotic delusional and paranoid with auditory hallucinations perhaps some vague tactile hallucinations. We will restart her medications per the medication reconciliation. We'll check a Depakote blood level in the a.m. Rule out hospitalist consult was especially concerning the possible vaginal discharge Discharge Planning Hopefully to return to her chcf Request HC Surrog/Guard Advoc?: No Problem Qualifiers (1) Schizophrenia: Qualified Codes: F20.0 - Paranoid schizophrenia Monster Ordonez MD Oct 05, 2017 10:48
--- NOTE | 2017-10-05 10:54 | EKG ---
Date Performed: 10/05/2017 Time Performed: 07:25:02 PTAGE: 57 years EKG: Sinus rhythm LOW QRS VOLTAGE IN PRECORDIAL LEADS BORDERLINE ECG PREVIOUS TRACING : 08/17/2017 11.00 DOCTOR: Jude Rossi Interpretating Date/Time 10/05/2017 10:51:43
--- NOTE | 2017-10-05 11:45 | PD.PSY.CON ---
Provisional Diagnosis Admission Date Oct 04, 2017 at 18:50 Th[place] I. Schizophrenia chronic paranoid type f 20.0 History of Present Illness Service Psychiatry Consult Requested By Psychiatry Reason for Consult Second opinion. Primary Care Physician Adama Kramer M.D. HPI Patient is a 57-year-old Afro-[place] female well known to us from multiple prior contacts comes here under Perez act signed by Dr. velasquez [facility] dated October 03, 2017 at 2030 p.m. the document reviewed essentially stating patient has been noncompliant with medications for 4 days she is hallucinating and delusional and paranoid patient disheveled and agitated in the emergency department patient seen screened in the emergency department urine toxicology negative there was both Depakote blood level drawn. Review of our EMR shows patient has had contact with us related to her mental illness going back to 2001. At the present time patient standing in the morrow, present with me or family practice resident Rosa, nurse practitioner Misty and nurse Arben. Patient showing significant psychosis with auditory hallucinations of various voices mainly spiritual. But also of her "daddy" there may be visual components related to this also. There may be also tactile components complaining of itching pain and sensations in her "booty". She acknowledges noncompliance with medication that the voices are telling her not to take the medicine. She also states that she has been using some alcohol and marijuana. Though urine toxicology was negative for blood alcohol level was negative. At this time patient meets criteria for involuntary psychiatric hospital position of the Perez act. I will do first opinion request second opinion. Left which has capacity to sign for medications.. Will hospitalist consult was also suggests complaining some vaginal discharge. Hopeless. Fairly short stay and we can return her to her [facility] The patient is a 57 years old woman, with psychiatric history of schizophrenia, was known by this service, multiple psychiatric admissions, brought to the hospital on the Perez act due to psychotic decompensation in the context of noncompliance with psychotropics. She was consulted to me for second opinion. On psychiatric evaluation the patient is cooperative, but guarded and paranoid. She says that she has been hiding inside her room because there are ghost and his periods of evil in [place]. She says that is time to eat, but god has told her to refuse food in [place]. She reports hearing voices of God, her father, in good spirits. During my evaluation patient is quite disorganized, very religiously preoccupied, talking to herself , but she is redirectable, not agitated, not aggressive. Past Family Social History Coded Allergies: acetaminophen (Unverified Allergy, Severe, 10/03/17) penicillin G (Unverified Allergy, Severe, 10/03/17) propoxyphene (Unverified Allergy, Unknown, 10/03/17) Active Scripts Pantoprazole (Protonix) 20 Mg Tab, 20 MG PO DAILY for health, #30 TAB 0 Refills Prov:Monster Ordonez MD 08/30/17 Metoprolol Tartrate (Metoprolol Tartrate) 25 Mg Tab, 25 MG PO Q12HR for health, #60 TAB 0 Refills Prov:Monster Ordonez MD 08/30/17 Ferrous Sulfate (Ferrous Sulfate) 325 Mg (65 Mg Iron) Tablet, 325 MG PO BIDPC for Nutritional Supplement, #60 TAB 0 Refills Prov:Monster Ordonez MD 08/30/17 Divalproex ER (Depakote ER) 500 Mg Skylar, 1000 MG PO HS for Control Seizures, # 60 TAB 0 Refills Prov:Monster Ordonez MD 08/30/17 Clozapine (Clozapine) 200 Mg Tab, 300 MG PO BID for Schizophrenia, #180 TAB 0 Refills Prov:Monster Ordonez MD 08/30/17 Glipizide (Glipizide) 10 Mg Tab, 10 MG PO BIDAC for Blood Sugar Management, #60 TAB 0 Refills Take 30 minutes before a meal Prov:Monster Ordonez MD 08/30/17 Lisinopril (Lisinopril) 10 Mg Tab, 10 MG PO DAILY, #30 TAB 0 Refills Prov:Monster Ordonez MD 08/30/17 Aspirin (Aspirin Low Dose) 81 Mg Chew, 81 MG CHEW DAILY for health, #30 TAB 0 Refills Prov:Monster Ordonez MD 08/30/17 Propylene Glycol-Glycerin Opth Drops (Artificial Tears Opth Drops) 1-0.3% Drops , 1 DROP EACH EYE BID Y for health, #15 ML 0 Refills Prov:Monster Ordonez MD 08/30/17 Pravastatin (Pravastatin) 80 Mg Tab, 80 MG PO DAILY for Cholesterol Management, #30 TAB 0 Refills Prov:Monster Ordonez MD 08/30/17 Docusate Sodium (Colace) 100 Mg Capsule, 200 MG PO BID for health, #60 CAP 0 Refills Prov:Monster Ordonez MD 08/30/17 Amlodipine (Norvasc) 5 Mg Tab, 5 MG PO DAILY for Blood Pressure Management, #30 TAB 0 Refills Prov:Edie Good MD 05/06/17 Discontinued Scripts Sulfamethoxazole-Trimethoprim (Bactrim DS) 800-160 Mg Tab, 1 TAB PO BID for Infection for 5 Days, #10 TAB 0 Refills Prov:Kareem Vera MD 09/21/17 Current Medications Medications (Trade) Dose Ordered Sig/Tori Route Start Time Stop Time Status Last Admin (NS Flush) 2 ml UNSCH PRN IVF 10/03/17 20:30 10/03/17 20:40 (Milk Of Magnesia Liq) 30 ml DAILY PRN PO 10/04/17 19:00 (Mag-Al Plus Susp Liq) 30 ml Q6H PRN PO 10/04/17 19:00 (Norvasc) 5 mg DAILY PO 10/05/17 09:00 10/05/17 09:11 (Glucotrol) 10 mg BIDAC PO 10/05/17 07:00 10/05/17 06:21 (Prinivil) 10 mg DAILY PO 10/05/17 09:00 10/05/17 09:10 (Lopressor) 25 mg Q12HR PO 10/04/17 21:00 10/05/17 09:11 (Pravachol) 80 mg DAILY PO 10/05/17 09:00 10/05/17 09:11 (Clozaril) 300 mg BID PO 10/05/17 10:15 UNV (Depakote Er) 1,000 mg HS PO 10/05/17 21:00 UNV (Colace) 200 mg BID PO 10/05/17 21:00 UNV (Ferrous Sulfate) 325 mg BIDPC PO 10/05/17 18:00 UNV (Protonix) 20 mg DAILY PO 10/06/17 09:00 UNV (Tears Naturale Opth Soln) 1 drop BID PRN EACH EYE 10/05/17 10:15 UNV (Benadryl) 50 mg HS PRN PO 10/05/17 10:30 UNV (Atarax) 50 mg Q6H PRN PO 10/05/17 10:30 UNV Patient's Strengths (min. 2) Patient verbal label axis healthcare Physical Exam Vital Signs Vital Signs Date Time Temp Pulse Resp B/P (MAP) Pulse Ox O2 Delivery O2 Flow Rate FiO2 10/05/17 05:55 98.1 106 18 124/75 (91) 99 10/04/17 18:13 Room Air Lab Results Test 10/05/17 07:58 Blood Urea Nitrogen 9 MG/DL Creatinine 0.70 MG/DL Random Glucose 94 MG/DL Calcium Level 8.9 MG/DL Sodium Level 141 MEQ/L Potassium Level 4.0 MEQ/L Chloride Level 106 MEQ/L Carbon Dioxide Level 30.0 MEQ/L Anion Gap 5 MEQ/L Estimat Glomerular Filtration Rate 104 ML/MIN Triglycerides Level 92 MG/DL Cholesterol Level 167 MG/DL LDL Cholesterol 102 MG/DL HDL Cholesterol 46.9 MG/DL Cholesterol/HDL Ratio 3.56 RATIO Mental Status Examination Appearance: Appropriate Consciousness: Alert Orientation: Person, Place, Date/Time (partial), Situation Motor Activity: Normal gait Speech: Pressured, Slow Language: Adequate Fund of Knowledge: Inadequate Attention and Concentration: Other (internally preoccupied) Memory: Unremarkable (unable to assess) Mood: Sad, Irritable (mildly) Affect: Other Thought Process & Associations: Disorganized Thought Content: Bizarre thinking Hallucination Type: Auditory (possible), Tactile (vague in the vaginal area) Delusion Type: Other (religiously preoccupied) Suicidal Ideation: No Suicidal Plan: No Suicidal Intention: No Homicidal Ideation: No Homicidal Plan: No Homicidal Intention: No Insight: Poor Judgment: Poor Assessment & Plan Problem List: (1) Schizophrenia ICD Codes: F20.9 - Schizophrenia, unspecified Assessment & Plan: I have seen and examined this patient. I have reviewed documentation. I agree and concur with Dr. Ordonez assessment and plan. Assessment & Plan Estimated LOS: days Request HC Surrog/Guard Advoc?: No Problem Qualifiers (1) Schizophrenia: Qualified Codes: F20.0 - Paranoid schizophrenia Juan Carlos Fortune MD Oct 05, 2017 11:45
[2017-10-05] MEDS: cloZAPine 100 MG TAB PO SCH ×2 (12:20→21:36)
--- NOTE | 2017-10-05 13:24 | PD.CONS ---
HPI Service [facility] Consult Requested By Primary Care Physician Adama Kramer M.D. Diagnoses: History of Present Illness History from review of medical records. Patient is admitted to psychiatry unit for acute exacerbation of her schizophrenia. Patient is not able to give proper history. She is found walking around in the 2600 units. When asked about her medical conditions, she reports she has all of the above assessment conditions. She stated yes to every single symptoms initially. However on further questioning, it is noted that she is mostly complaining about itching and pain in her private parts. History is extremely limited from patient. Review of Systems ROS Limitations: Clinical Condition (not able to obtain review of system at all as patient is acutely psychotic), Poor Historian Past Family Social History Allergies: Coded Allergies: acetaminophen (Unverified Allergy, Severe, 10/03/17) penicillin G (Unverified Allergy, Severe, 10/03/17) propoxyphene (Unverified Allergy, Unknown, 10/03/17) Past Medical History per EMR: Asthma Anxiety Dyslipidemia CAD Hypertension DM COPD Seizures Schizophrenia Past Surgical History C section x 3 per patient Family History unknown Social History Reports she smokes cigarettes and uses cocaine. Unsure whether she use IV drugs. She was not forthcoming with that. Denies any alcohol abuse. Physical Exam Vital Signs Vital Signs Date Time Temp Pulse Resp B/P (MAP) Pulse Ox O2 Delivery O2 Flow Rate FiO2 10/05/17 05:55 98.1 106 18 124/75 (91) 99 10/04/17 18:35 10/04/17 18:35 98.1 100 16 128/66 (86) 97 10/04/17 18:13 104 18 150/65 (93) 95 Room Air 10/04/17 14:12 98.4 112 18 124/62 (82) 98 Room Air Physical Exam GENERAL: This is a well-nourished, well-developed patient, in no apparent distress. SKIN: No rashes, ecchymoses or lesions. Cool and dry. HEAD: Atraumatic. Normocephalic. No temporal or scalp tenderness. EYES: Pupils equal round and reactive. Extraocular motions intact. No scleral icterus. No injection or drainage. ENT: Nose without bleeding, purulent drainage or septal hematoma. Airway patent. NECK: Trachea midline. No JVD CARDIOVASCULAR: Regular rate and rhythm without murmurs, gallops, or rubs. RESPIRATORY: Clear to auscultation. Breath sounds equal bilaterally. No wheezes , rales, or rhonchi. GASTROINTESTINAL: Abdomen soft, non-tender, nondistended. . No guarding. : Skin is clean and intact around perianal area and perivaginal area and her groins. On examination of her vaginal/valvular area, she has mild whitish discharge. No obvious cyst or ulcerations. Patient was examined at the presence of her pharmacist aide. MUSCULOSKELETAL: Extremities without clubbing, cyanosis, or edema. No joint tenderness, effusion, or edema noted. No calf tenderness. NEUROLOGICAL: Awake and alert. . Motor and sensory grossly within normal limits. Normal speech. Laboratory Laboratory Tests Test 10/05/17 07:58 Blood Urea Nitrogen 9 Creatinine 0.70 Random Glucose 94 Calcium Level 8.9 Sodium Level 141 Potassium Level 4.0 Chloride Level 106 Carbon Dioxide Level 30.0 Anion Gap 5 Estimat Glomerular Filtration Rate 104 Triglycerides Level 92 Cholesterol Level 167 LDL Cholesterol 102 HDL Cholesterol 46.9 Cholesterol/HDL Ratio 3.56 Result Diagram: 10/03/17204910/05/17 0758 Assessment and Plan Assessment and Plan Impression: Possible vaginosis Ruth Acute psychotic episode Schizophrenia Asthma Anxiety Dyslipidemia CAD Hypertension DM COPD Seizures Schizophrenia Plan: Start Diflucan 150 mg by mouth one dose now. Patient's physical exam reveals fairly mild disease. There is very mild vaginal discharge. Resumed patient's meds by the primary psychiatry team.. Reviewed. We'll check fingersticks. We will sign off on the case. Please reconsult if any acute medical issues. DVT prophylaxis with ambulation. Discussed Condition With patient, nursing staff Zacarias Burton MD Oct 05, 2017 13:24
[2017-10-05] MEDS ORDERED: GLUCAGON 1 MG/ML VIAL OTHER PRN (13:30)
[2017-10-05] MEDS ORDERED: DEXTROSE 50% IN WATER 50 ML VIAL(D50) IV PUSH PRN (13:30)
[2017-10-05] MEDS ORDERED: FLUCONAZOLE 100 MG TAB PO ONE (15:00)
[2017-10-05 16:19] LABS: HEMOGLOBIN A1C 7.3 % (4.3-6.0)
[2017-10-05] MEDS: INSULIN ASPART SUPPLEMENTAL SCALE SQ SCH ×2 (16:36→21:38)
[2017-10-05] MEDS: FERROUS SULFATE 325 MG (65 MG ELEMENTAL IRON) TAB PO SCH (16:37)
[2017-10-05 17:45] VITALS: BP 144/88; PULSE 85; RESP 18; TEMP 98.6
[2017-10-05] MEDS: DOCUSATE SODIUM 100 MG CAP PO SCH (21:36)
[2017-10-05] MEDS: DIVALPROEX SODIUM E.R. 500 MG TAB PO SCH (21:37)
[2017-10-06] MEDS: diphenhydrAMINE HCL 50 MG CAP PO PRN ×2 (01:36→21:19)
[2017-10-06 05:55] VITALS: BP 122/71; PULSE 97; RESP 18; TEMP 97.8; O2SAT 97
[2017-10-06] MEDS: glipiZIDE 10 MG TAB PO SCH ×2 (06:10→16:00)
[2017-10-06] MEDS: INSULIN ASPART SUPPLEMENTAL SCALE SQ SCH ×4 (08:00→20:49)
[2017-10-06] MEDS: FERROUS SULFATE 325 MG (65 MG ELEMENTAL IRON) TAB PO SCH ×2 (09:15→18:00)
[2017-10-06] MEDS: DOCUSATE SODIUM 100 MG CAP PO SCH ×2 (09:15→21:18)
[2017-10-06] MEDS: PRAVASTATIN SOD 80 MG TAB PO SCH (09:15)
[2017-10-06] MEDS: METOPROLOL TARTRATE 25 MG TAB PO SCH ×2 (09:15→21:19)
[2017-10-06] MEDS: amLODIPine BESYLATE 5 MG TAB PO SCH (09:15)
[2017-10-06] MEDS: cloZAPine 100 MG TAB PO SCH ×2 (09:15→21:18)
[2017-10-06] MEDS: LISINOPRIL 10 MG TAB PO SCH (09:15)
[2017-10-06] MEDS: PANTOPRAZOLE SOD 20 MG DELAYED RELEASE TAB PO SCH (09:15)
--- NOTE | 2017-10-06 15:34 | HHI.PYPN ---
Subjective Remarks Patient seen in her room with nurse Stefanie, chart reviewed, patient compliant medications. Patient somewhat calmer less intensity affect. Voices persist but they're somewhat softer. She still occasionally talks too "Khalif" for now continue treatment Review of Systems Except as stated in HPI: all other systems reviewed are Neg Mental Status Examination Appearance: Appropriate Consciousness: Alert Orientation: Person, Place, Date/Time (partial), Situation Motor Activity: Normal gait Speech: Pressured, Slow Language: Adequate Fund of Knowledge: Inadequate Attention and Concentration: Other (internally preoccupied) Memory: Unremarkable (unable to assess) Mood: Sad, Irritable (mildly) Affect: Other Thought Process & Associations: Disorganized Thought Content: Bizarre thinking Hallucination Type: Auditory (possible), Tactile (vague in the vaginal area) Delusion Type: Other (religiously preoccupied) Suicidal Ideation: No Suicidal Plan: No Suicidal Intention: No Homicidal Ideation: No Homicidal Plan: No Homicidal Intention: No Insight: Poor Judgment: Poor Results Labs Test 10/06/17 05:50 Valproic Acid (Depakene) Level 32 MCG/ML Vitals/IOs Vital Signs Date Time Temp Pulse Resp B/P (MAP) Pulse Ox O2 Delivery O2 Flow Rate FiO2 10/06/17 05:55 97.8 97 18 122/71 (88) 97 10/04/17 18:13 Room Air Assessment & Plan Problem List: (1) Schizophrenia ICD Codes: F20.9 - Schizophrenia, unspecified Assessment & Plan Estimated LOS: days patient continue psychotic and somewhat paranoid though softer, compliant medications. Justification for Cont. Inpt. At this time patient would decompensated placed a lower level of care Discharge Planning Probable return to residential Request HC Surrog/Guard Advoc?: No Problem Qualifiers (1) Schizophrenia: Qualified Codes: F20.0 - Paranoid schizophrenia Monster Ordonez MD Oct 06, 2017 15:34
[2017-10-06 17:17] VITALS: BP 142/78; PULSE 96; RESP 16; TEMP 98; O2SAT 98
[2017-10-06] MEDS: DIVALPROEX SODIUM E.R. 500 MG TAB PO SCH (21:19)
[2017-10-07 05:39] VITALS: BP 136/74; PULSE 80; RESP 16; TEMP 97.9; O2SAT 98
[2017-10-07] MEDS: glipiZIDE 10 MG TAB PO SCH ×2 (06:36→16:06)
[2017-10-07] MEDS: INSULIN ASPART SUPPLEMENTAL SCALE SQ SCH ×4 (08:00→20:53)
[2017-10-07] MEDS: FERROUS SULFATE 325 MG (65 MG ELEMENTAL IRON) TAB PO SCH ×2 (09:00→18:00)
[2017-10-07] MEDS: PRAVASTATIN SOD 80 MG TAB PO SCH (09:41)
[2017-10-07] MEDS: cloZAPine 100 MG TAB PO SCH ×2 (09:41→20:53)
[2017-10-07] MEDS: METOPROLOL TARTRATE 25 MG TAB PO SCH ×2 (09:42→20:52)
[2017-10-07] MEDS: DOCUSATE SODIUM 100 MG CAP PO SCH ×2 (09:42→20:52)
[2017-10-07] MEDS: PANTOPRAZOLE SOD 20 MG DELAYED RELEASE TAB PO SCH (09:42)
[2017-10-07] MEDS: amLODIPine BESYLATE 5 MG TAB PO SCH (09:42)
[2017-10-07] MEDS: LISINOPRIL 10 MG TAB PO SCH (09:42)
--- NOTE | 2017-10-07 14:34 | HHI.PYPN ---
Subjective Remarks Patient seen in her room with floor staff, patient continues somewhat delusional grandiose but also childlike, vague about auditory hallucinations primarily of "Khalif". She is compliant with medications. Depakote level drawn yesterday came back at 43 though there is some question as to her compliance prior to admission. Will recheck Depakote blood level on 10/09 Review of Systems Except as stated in HPI: all other systems reviewed are Neg Mental Status Examination Appearance: Appropriate Consciousness: Alert Orientation: Person, Place, Date/Time (partial), Situation Motor Activity: Normal gait Speech: Pressured, Slow Language: Adequate Fund of Knowledge: Inadequate Attention and Concentration: Other (internally preoccupied) Memory: Unremarkable (unable to assess) Mood: Sad, Irritable (mildly) Affect: Other Thought Process & Associations: Disorganized Thought Content: Bizarre thinking Hallucination Type: Auditory (possible), Tactile (vague in the vaginal area) Delusion Type: Other (religiously preoccupied) Suicidal Ideation: No Suicidal Plan: No Suicidal Intention: No Homicidal Ideation: No Homicidal Plan: No Homicidal Intention: No Insight: Poor Judgment: Poor Results Vitals/IOs Vital Signs Date Time Temp Pulse Resp B/P (MAP) Pulse Ox O2 Delivery O2 Flow Rate FiO2 10/07/17 05:39 97.9 80 16 136/74 (94) 98 10/04/17 18:13 Room Air Assessment & Plan Problem List: (1) Schizophrenia ICD Codes: F20.9 - Schizophrenia, unspecified Assessment & Plan Estimated LOS: days patient continues psychotic and delusional, but no significant behavioral problems, compliant medications, will recheck Depakote blood level on 10/09 Justification for Cont. Inpt. At this time patient decompensated placed a lower level of care Request HC Surrog/Guard Advoc?: No Problem Qualifiers (1) Schizophrenia: Qualified Codes: F20.0 - Paranoid schizophrenia Monster Ordonez MD Oct 07, 2017 14:34
[2017-10-07] MEDS: DIVALPROEX SODIUM E.R. 500 MG TAB PO SCH (20:52)
[2017-10-07] MEDS: diphenhydrAMINE HCL 50 MG CAP PO PRN (20:52)
[2017-10-08 05:35] VITALS: BP 113/57; PULSE 99; RESP 16; TEMP 98.1; O2SAT 98
[2017-10-08] MEDS: glipiZIDE 10 MG TAB PO SCH ×2 (06:33→18:05)
[2017-10-08] MEDS: INSULIN ASPART SUPPLEMENTAL SCALE SQ SCH ×4 (06:40→20:51)
[2017-10-08] MEDS: FERROUS SULFATE 325 MG (65 MG ELEMENTAL IRON) TAB PO SCH ×3 (09:00→18:00)
[2017-10-08] MEDS: DOCUSATE SODIUM 100 MG CAP PO SCH ×2 (10:47→20:48)
[2017-10-08] MEDS: PANTOPRAZOLE SOD 20 MG DELAYED RELEASE TAB PO SCH (10:47)
[2017-10-08] MEDS: PRAVASTATIN SOD 80 MG TAB PO SCH (10:47)
[2017-10-08] MEDS: cloZAPine 100 MG TAB PO SCH ×2 (10:48→20:49)
[2017-10-08] MEDS: METOPROLOL TARTRATE 25 MG TAB PO SCH ×2 (10:48→20:49)
[2017-10-08] MEDS: LISINOPRIL 10 MG TAB PO SCH (10:49)
[2017-10-08] MEDS: amLODIPine BESYLATE 5 MG TAB PO SCH (10:49)
--- NOTE | 2017-10-08 16:43 | HHI.PYPN ---
Subjective Remarks Pt seen and discussed with staff. She remains psychotic and c/o of "devil voices ". She is compliant with medications and denies side effects. This morning she was paranoid and refused accucheck. No aggression. Mental Status Examination Appearance: Appropriate Consciousness: Alert Orientation: Person, Place, Date/Time (partial), Situation Motor Activity: Normal gait Speech: Pressured, Slow Language: Adequate Fund of Knowledge: Inadequate Attention and Concentration: Other (internally preoccupied) Memory: Unremarkable (unable to assess) Mood: Sad, Irritable (mildly) Affect: Other Thought Process & Associations: Disorganized Thought Content: Bizarre thinking Hallucination Type: Auditory (possible), Tactile (vague in the vaginal area) Delusion Type: Other (religiously preoccupied) Suicidal Ideation: No Suicidal Plan: No Suicidal Intention: No Homicidal Ideation: No Homicidal Plan: No Homicidal Intention: No Insight: Poor Judgment: Poor Results Vitals/IOs Vital Signs Date Time Temp Pulse Resp B/P (MAP) Pulse Ox O2 Delivery O2 Flow Rate FiO2 10/08/17 05:35 98.1 99 16 113/57 (75) 98 10/04/17 18:13 Room Air Assessment & Plan Problem List: (1) Schizophrenia ICD Codes: F20.9 - Schizophrenia, unspecified Assessment & Plan continue currnet tx plan. Estimated LOS: days Justification for Cont. Inpt. impairments in reality testing Request HC Surrog/Guard Advoc?: No Problem Qualifiers (1) Schizophrenia: Qualified Codes: F20.0 - Paranoid schizophrenia Ailyn Hitchcock MD Oct 08, 2017 16:43
[2017-10-08 18:00] VITALS: BP 115/62; PULSE 96; RESP 18; TEMP 98.3; O2SAT 98
[2017-10-08] MEDS: DIVALPROEX SODIUM E.R. 500 MG TAB PO SCH (20:49)
[2017-10-08] MEDS: diphenhydrAMINE HCL 50 MG CAP PO PRN (20:49)
[2017-10-09 05:31] VITALS: BP 120/63; PULSE 95; RESP 16; TEMP 97.9; O2SAT 97
[2017-10-09] MEDS: glipiZIDE 10 MG TAB PO SCH ×2 (06:30→16:21)
[2017-10-09] MEDS: INSULIN ASPART SUPPLEMENTAL SCALE SQ SCH ×4 (06:30→21:00)
[2017-10-09] MEDS: FERROUS SULFATE 325 MG (65 MG ELEMENTAL IRON) TAB PO SCH ×2 (09:00→17:46)
[2017-10-09] MEDS: PRAVASTATIN SOD 80 MG TAB PO SCH (09:28)
[2017-10-09] MEDS: DOCUSATE SODIUM 100 MG CAP PO SCH ×2 (09:29→20:44)
[2017-10-09] MEDS: PANTOPRAZOLE SOD 20 MG DELAYED RELEASE TAB PO SCH (09:29)
[2017-10-09] MEDS: LISINOPRIL 10 MG TAB PO SCH (09:29)
[2017-10-09] MEDS: METOPROLOL TARTRATE 25 MG TAB PO SCH ×2 (09:29→20:44)
[2017-10-09] MEDS: amLODIPine BESYLATE 5 MG TAB PO SCH (09:29)
[2017-10-09] MEDS: cloZAPine 100 MG TAB PO SCH ×2 (09:29→20:45)
--- NOTE | 2017-10-09 12:55 | HHI.PYPN ---
Subjective Remarks Pt seen and discussed with staff. She has been out of room only for lunch today. She refused accucheck this morning. She was compliant with medications with staff encouragement. She remains delusional and paranoid. She refuses to engage in interview with MD. She reported severe rectal pain to RN last night and today that made it difficult for her to walk. Pt refuses to discuss symptoms with MD in interview. Mental Status Examination Appearance: Appropriate Consciousness: Alert Orientation: Person, Place, Date/Time (partial), Situation Motor Activity: Normal gait Speech: Pressured, Slow Language: Adequate Fund of Knowledge: Inadequate Attention and Concentration: Other (internally preoccupied) Memory: Unremarkable (unable to assess) Mood: Sad, Irritable (mildly) Affect: Other Thought Process & Associations: Disorganized Thought Content: Bizarre thinking Hallucination Type: Auditory (possible), Tactile (vague in the vaginal area) Delusion Type: Other (religiously preoccupied) Suicidal Ideation: No Suicidal Plan: No Suicidal Intention: No Homicidal Ideation: No Homicidal Plan: No Homicidal Intention: No Insight: Poor Judgment: Poor Results Labs Test 10/09/17 09:40 Valproic Acid (Depakene) Level 89 MCG/ML Vitals/IOs Vital Signs Date Time Temp Pulse Resp B/P (MAP) Pulse Ox O2 Delivery O2 Flow Rate FiO2 10/09/17 05:31 97.9 95 16 120/63 (82) 97 Intake and Output 10/09/17 10/09/17 10/10/17 08:00 16:00 00:00 Intake Total 0 ml 240 ml Balance 0 ml 240 ml Assessment & Plan Problem List: (1) Schizophrenia ICD Codes: F20.9 - Schizophrenia, unspecified Assessment & Plan Continue current tx plan. Hospitalist consult for rectal pain. Estimated LOS: days Justification for Cont. Inpt. impairments in reality testing Request HC Surrog/Guard Advoc?: No Problem Qualifiers (1) Schizophrenia: Qualified Codes: F20.0 - Paranoid schizophrenia Ailyn Hitchcock MD Oct 09, 2017 12:55
--- NOTE | 2017-10-09 13:36 | HHI.PR ---
Subjective Remarks This is a pleasant 57 y/o Female who is admitted to Psychiatric unit due to Schizophrenia, As we know she has Asthma, Anxiety disorder, hyperlipidemia, CAD, Hypertension, DM II, COPD, Seizure disorder and Schizophrenia, Smokes cigarettes and uses Cocaine, IV drugs. Seen in the presence of nurse at all times in the room, the patient states she has lower discomfort in her vaginal area, evident vaginal discharge with foul odor probable related to bacterial vaginosis, will give antibiotics, but will need Data Processor evaluation doubt that the patient has been compliant with her outpatient evaluations. Objective Vital Signs Date Time Temp Pulse Resp B/P (MAP) Pulse Ox O2 Delivery O2 Flow Rate FiO2 10/09/17 05:31 97.9 95 16 120/63 (82) 97 10/08/17 18:00 98.3 96 18 115/62 (79) 98 I/O 10/08/17 10/08/17 10/08/17 10/09/17 10/09/17 10/09/17 07:00 15:00 23:00 07:00 15:00 23:00 Intake Total 240 ml Balance 240 ml Intake Oral 240 ml Result Diagram: 10/05/17 0758 Imaging No new imaging studies. Procedures None Other Results Laboratory Tests Test 10/03/17 20:50 10/04/17 01:00 10/05/17 07:58 10/09/17 09:40 White Blood Count 14.5 TH/MM3 Red Blood Count 3.80 MIL/MM3 Hemoglobin 11.9 GM/DL Hematocrit 32.7 % Mean Corpuscular Volume 86.0 FL Mean Corpuscular Hemoglobin 31.4 PG Mean Corpuscular Hemoglobin Concent 36.6 % Red Cell Distribution Width 14.2 % Platelet Count 299 TH/MM3 Mean Platelet Volume 8.0 FL Neutrophils (%) (Auto) 60.6 % Lymphocytes (%) (Auto) 32.6 % Monocytes (%) (Auto) 4.5 % Eosinophils (%) (Auto) 1.4 % Basophils (%) (Auto) 0.9 % Neutrophils # (Auto) 8.8 TH/MM3 Lymphocytes # (Auto) 4.7 TH/MM3 Monocytes # (Auto) 0.6 TH/MM3 Eosinophils # (Auto) 0.2 TH/MM3 Basophils # (Auto) 0.1 TH/MM3 CBC Comment AUTO DIFF Differential Comment AUTO DIFF CONFIRMED Blood Urea Nitrogen 9 MG/DL 9 MG/DL Creatinine 0.94 MG/DL 0.70 MG/DL Random Glucose 126 MG/DL 94 MG/DL Total Protein 8.3 GM/DL Albumin 3.9 GM/DL Calcium Level 9.8 MG/DL 8.9 MG/DL Alkaline Phosphatase 105 U/L Aspartate Amino Transf (AST/SGOT) 24 U/L Alanine Aminotransferase (ALT/SGPT) 17 U/L Total Bilirubin 0.2 MG/DL Sodium Level 139 MEQ/L 141 MEQ/L Potassium Level 3.9 MEQ/L 4.0 MEQ/L Chloride Level 105 MEQ/L 106 MEQ/L Carbon Dioxide Level 27.3 MEQ/L 30.0 MEQ/L Urine Color LIGHT-YELLOW Urine Turbidity CLEAR Urine pH 5.0 Urine Specific [place] 1.004 Urine Protein NEG mg/dL Urine Glucose (UA) NEG mg/dL Urine Ketones NEG mg/dL Urine Occult Blood NEG Urine Nitrite NEG Urine Bilirubin NEG Urine Urobilinogen LESS THAN 2.0 MG/DL Urine Leukocyte Esterase NEG Urine RBC LESS THAN 1 /hpf Urine WBC 1 /hpf Urine Squamous Epithelial Cells 1 /hpf Urine Bacteria RARE /hpf Microscopic Urinalysis Comment CULT NOT INDICATED Urine Opiates Screen NEG Urine Barbiturates Screen NEG Urine Amphetamines Screen NEG Urine Benzodiazepines Screen NEG Urine Cocaine Screen NEG Urine Cannabinoids Screen NEG Anion Gap 5 MEQ/L Estimat Glomerular Filtration Rate 104 ML/MIN Hemoglobin A1c 7.3 % Triglycerides Level 92 MG/DL Cholesterol Level 167 MG/DL LDL Cholesterol 102 MG/DL HDL Cholesterol 46.9 MG/DL Cholesterol/HDL Ratio 3.56 RATIO Valproic Acid (Depakene) Level 89 MCG/ML Objective Remarks GENERAL: Obesity HEAD: Atraumatic. Normocephalic. NECK: Supple, no JVD, CARDIOVASCULAR: Regular rate and rhythm without murmurs, gallops, or rubs. RESPIRATORY: Clear to auscultation. Breath sounds equal bilaterally. No wheezes , rales, or rhonchi. GASTROINTESTINAL: Abdomen soft, non-tender, nondistended. evaluation, but no speculum used, no internal palpation, was seen and evident from outside abundant vaginal discharge of foul smelling yellow material. Medications and IVs Current Medications Medications (Trade) Dose Ordered Sig/Tori Route Start Time Stop Time Status Last Admin (NS Flush) 2 ml UNSCH PRN IVF 10/03/17 20:30 10/03/17 20:40 (Milk Of Magnesia Liq) 30 ml DAILY PRN PO 10/04/17 19:00 (Mag-Al Plus Susp Liq) 30 ml Q6H PRN PO 10/04/17 19:00 (Norvasc) 5 mg DAILY PO 10/05/17 09:00 10/09/17 09:29 (Glucotrol) 10 mg BIDAC PO 10/05/17 07:00 10/09/17 06:30 (Prinivil) 10 mg DAILY PO 10/05/17 09:00 10/09/17 09:29 (Lopressor) 25 mg Q12HR PO 10/04/17 21:00 10/09/17 09:29 (Pravachol) 80 mg DAILY PO 10/05/17 09:00 10/09/17 09:28 (Clozaril) 300 mg BID PO 10/05/17 10:15 10/09/17 09:29 (Depakote Er) 1,000 mg HS PO 10/05/17 21:00 10/08/17 20:49 (Colace) 200 mg BID PO 10/05/17 21:00 10/09/17 09:29 (Ferrous Sulfate) 325 mg BIDPC PO 10/05/17 18:00 10/06/17 18:00 (Protonix) 20 mg DAILY PO 10/06/17 09:00 10/09/17 09:29 (Tears Naturale Opth Soln) 1 drop BID PRN EACH EYE 10/05/17 10:15 (Benadryl) 50 mg HS PRN PO 10/05/17 10:30 10/08/17 20:49 (Atarax) 50 mg Q6H PRN PO 10/05/17 10:30 10/05/17 12:20 (D50w (Vial) Inj) 50 ml UNSCH PRN IV PUSH 10/05/17 13:30 (Glucagon Inj) 1 mg UNSCH PRN OTHER 10/05/17 13:30 (NovoLOG SUPPLEMENTAL SCALE) 1 ACHS SLIDING SCALE SQ 10/05/17 17:00 10/08/17 11:50 A/P Assessment and Plan Probable Bacterial Vaginosis started on Metronidazole and Doxycycline and asked for Data Processor evaluation. Acute psychotic episode continue Psychiatric management all other medical conditions stable Asthma Anxiety Dyslipidemia CAD Hypertension DM COPD Seizures Schizophrenia DVT prophylaxis with ambulation. Discussed Condition With Patient and nurse in the room Miss Duckworth appreciated. Discharge Planning As per attending physician. Darryl Mata MD Oct 09, 2017 13:36
[2017-10-09] MEDS: metroNIDAZOLE 500 MG TAB PO SCH ×2 (15:45→23:52)
--- NOTE | 2017-10-09 17:41 | PD.CONS ---
History & Physical H&P 57 yo female admitted for psychosis. RV REPAIRER consulted for reported rectal pain / vaginal burning. History from patient limited due to mental status. Briefly, her rectal pain was brief and does not feel constant. Her main concern is vaginal burning that has been going on for the last month. Burning is intermittent, not related to urination, and assoc with dryness. Had some vaginal bleeding (light) 2 weeks ago but none since. Denies vaginal discharge or genital rashes. Last sexual contact 10 years ago per patient. LMP ~15 years ago. ROS limited by mental status Patient endorses chest pain, shortness of breath, abdominal pain, muscle aches, and fever. PFSH obtained via chart review: Past Medical History Asthma Anxiety Dyslipidemia CAD Hypertension DM COPD Seizures Schizophrenia Past Surgical History C section x 3 per patient Family History unknown Social History in the past, lives in a fdc. Reports she smokes cigarettes and uses cocaine. Unsure whether she use IV drugs. She was not forthcoming with that. Denies any alcohol abuse. PHYSICAL EXAM Gen: Obese black female sitting up in bed, comfortable, NAD. Head: NC/AT Eyes: Pupils equal, round ENT: External ear and nose normal Abd: Soft, non-distended MSK: No cyanosis or edema MSE: Flattened affect, poor eye contact, disheveled Assessment and Plan 1. Vaginal burning / dryness - in postmenopausal female most likely related to atrophic vaginitis. In any case, exam deferred as this is not an acute issue and would be best addressed by RV REPAIRER or primary care provider as an outpatient. 2. Rectal pain - continue to monitor; if pain changes to persistent (vs intermittent) and/or worsening, consider rectal exam. 3. Vaginal bleeding - light and 2 weeks ago, unlikely to be anything major. If further bleeding would need pelvic U/S +/- endometrial biopsy; both could be done outpatient. KEYSMITH to sign off. Please re-consult if worsening symptoms arise. Thank you for the opportunity to assist in Ms. Araya's care. dw Dr. Beauchamp (Shiva Bowen MD) Attestation Patient reviewed with resident under direct supervision, agree with assessment and plan. (Jude Beauchamp MD) Shiva Bowen MD Oct 09, 2017 17:41 Jude Beauchamp MD Oct 10, 2017 07:43
[2017-10-09 18:33] VITALS: BP 116/58; PULSE 104; RESP 18; TEMP 98; O2SAT 97
[2017-10-09] MEDS: DOXYCYCLINE HYCLATE 100 MG CAP PO SCH (20:44)
[2017-10-09] MEDS: DIVALPROEX SODIUM E.R. 500 MG TAB PO SCH (20:44)
[2017-10-10 06:17] VITALS: BP 111/65; PULSE 88; RESP 17; TEMP 98.5; O2SAT 96
[2017-10-10] MEDS: metroNIDAZOLE 500 MG TAB PO SCH ×3 (06:49→21:26)
[2017-10-10] MEDS: glipiZIDE 10 MG TAB PO SCH ×2 (06:49→16:00)
[2017-10-10] MEDS: INSULIN ASPART SUPPLEMENTAL SCALE SQ SCH ×4 (08:00→20:28)
[2017-10-10] MEDS: LISINOPRIL 10 MG TAB PO SCH (08:32)
[2017-10-10] MEDS: cloZAPine 100 MG TAB PO SCH ×2 (08:33→20:27)
[2017-10-10] MEDS: PRAVASTATIN SOD 80 MG TAB PO SCH (08:33)
[2017-10-10] MEDS: DOCUSATE SODIUM 100 MG CAP PO SCH ×2 (08:33→20:27)
[2017-10-10] MEDS: FERROUS SULFATE 325 MG (65 MG ELEMENTAL IRON) TAB PO SCH ×2 (08:33→18:00)
[2017-10-10] MEDS: DOXYCYCLINE HYCLATE 100 MG CAP PO SCH ×2 (08:33→20:27)
[2017-10-10] MEDS: PANTOPRAZOLE SOD 20 MG DELAYED RELEASE TAB PO SCH (08:33)
[2017-10-10] MEDS: METOPROLOL TARTRATE 25 MG TAB PO SCH ×2 (08:33→20:27)
[2017-10-10] MEDS: amLODIPine BESYLATE 5 MG TAB PO SCH (08:34)
--- NOTE | 2017-10-10 09:18 | HHI.PR ---
Subjective Remarks Treatment for BV is in place. Electric Bath Attendant recommends outpatient follow up with PCP or Electric Bath Attendant. Objective Vitals Vital Signs Date Time Temp Pulse Resp B/P (MAP) Pulse Ox O2 Delivery O2 Flow Rate FiO2 10/10/17 06:17 98.5 88 17 111/65 (80) 96 10/09/17 18:33 98.0 104 18 116/58 (77) 97 I/O 10/09/17 10/09/17 10/09/17 10/10/17 10/10/17 10/10/17 07:00 15:00 23:00 07:00 15:00 23:00 Intake Total 240 ml Balance 240 ml Intake Oral 240 ml A/P Problem List: (1) Bacterial vaginosis ICD Code: N76.0 - Acute vaginitis; B96.89 - Other specified bacterial agents as the cause of diseases classified elsewhere Assessment and Plan 57 year old female. Bacterial Vaginosis Metronidazole for 7 days total. Doxycycline for 5 days total. Follow up with PCP for Electric Bath Attendant as an outpatient No further need for work up or treatment changes at this time Medical team will sign off. Jeremías Hearn MD Oct 10, 2017 09:18
--- NOTE | 2017-10-10 10:54 | HHI.PYPN ---
Subjective Remarks Patient seen in her room with nurse Arben, chart reviewed, patient compliant medication. Patient seen laying in her bed covers over her head. Did peak out at me. Asked where she lived before the hospital she said "hello". There are still auditory hallucinations present. Patient however has been no behavioral problem. Will increase daily Clozaril to 300 mg a.m. 325 mg at bedtime Review of Systems Except as stated in HPI: all other systems reviewed are Neg Mental Status Examination Appearance: Appropriate Consciousness: Alert Orientation: Person, Place, Date/Time (partial), Situation Motor Activity: Normal gait Speech: Pressured, Slow Language: Adequate Fund of Knowledge: Inadequate Attention and Concentration: Other (internally preoccupied) Memory: Unremarkable (unable to assess) Mood: Sad, Irritable (mildly) Affect: Other Thought Process & Associations: Disorganized Thought Content: Bizarre thinking Hallucination Type: Auditory (possible), Tactile (vague in the vaginal area) Delusion Type: Other (religiously preoccupied) Suicidal Ideation: No Suicidal Plan: No Suicidal Intention: No Homicidal Ideation: No Homicidal Plan: No Homicidal Intention: No Insight: Poor Judgment: Poor Results Vitals/IOs Vital Signs Date Time Temp Pulse Resp B/P (MAP) Pulse Ox O2 Delivery O2 Flow Rate FiO2 10/10/17 06:17 98.5 88 17 111/65 (80) 96 Assessment & Plan Problem List: (1) Schizophrenia ICD Codes: F20.9 - Schizophrenia, unspecified Assessment & Plan Estimated LOS: days patient continue psychotic at times somewhat isolating. Voices persist. Psychosis persists. See medication adjustment above Justification for Cont. Inpt. At this time patient will decompensate then placed in the lower level of care Discharge Planning Return to [facility] once stabilized Request HC Surrog/Guard Advoc?: No Problem Qualifiers (1) Schizophrenia: Qualified Codes: F20.0 - Paranoid schizophrenia Monster Ordonez MD Oct 10, 2017 10:54
[2017-10-10 16:59] VITALS: BP 110/62; PULSE 90; RESP 20; TEMP 98.6; O2SAT 98
[2017-10-10] MEDS: DIVALPROEX SODIUM E.R. 500 MG TAB PO SCH (20:25)
[2017-10-10] MEDS: cloZAPine 25 MG TAB PO SCH (20:25)
[2017-10-11 05:37] VITALS: BP 122/70; PULSE 68; RESP 16; TEMP 97.6; O2SAT 98
[2017-10-11] MEDS: glipiZIDE 10 MG TAB PO SCH ×2 (06:07→15:42)
[2017-10-11] MEDS: metroNIDAZOLE 500 MG TAB PO SCH ×3 (06:07→21:08)
[2017-10-11] MEDS: INSULIN ASPART SUPPLEMENTAL SCALE SQ SCH ×4 (07:25→21:35)
[2017-10-11] MEDS: LISINOPRIL 10 MG TAB PO SCH (08:43)
[2017-10-11] MEDS: PRAVASTATIN SOD 80 MG TAB PO SCH (08:43)
[2017-10-11] MEDS: PANTOPRAZOLE SOD 20 MG DELAYED RELEASE TAB PO SCH (08:43)
[2017-10-11] MEDS: FERROUS SULFATE 325 MG (65 MG ELEMENTAL IRON) TAB PO SCH ×3 (08:43→17:37)
[2017-10-11] MEDS: cloZAPine 100 MG TAB PO SCH ×2 (08:43→21:07)
[2017-10-11] MEDS: DOCUSATE SODIUM 100 MG CAP PO SCH ×2 (08:43→21:08)
[2017-10-11] MEDS: DOXYCYCLINE HYCLATE 100 MG CAP PO SCH ×2 (08:44→21:08)
[2017-10-11] MEDS: METOPROLOL TARTRATE 25 MG TAB PO SCH ×2 (08:44→21:08)
[2017-10-11] MEDS: amLODIPine BESYLATE 5 MG TAB PO SCH (08:44)
--- NOTE | 2017-10-11 15:36 | HHI.PYPN ---
Subjective Remarks Patient seen in her room with medical student Gregory and nurse Jennifer, chart review, patient compliant medication. All patient continues isolate she says she is feeling better. She now appears to be willing to go back to her jail. She says the voices are much better. For now continue treatment will contact jail to see if they're willing to have her come back Review of Systems Except as stated in HPI: all other systems reviewed are Neg Mental Status Examination Appearance: Appropriate Consciousness: Alert Orientation: Person, Place, Date/Time (partial), Situation Motor Activity: Normal gait Speech: Pressured, Slow Language: Adequate Fund of Knowledge: Inadequate Attention and Concentration: Other (internally preoccupied) Memory: Unremarkable (unable to assess) Mood: Sad, Irritable (mildly) Affect: Other Thought Process & Associations: Disorganized Thought Content: Bizarre thinking Hallucination Type: Auditory (possible), Tactile (vague in the vaginal area) Delusion Type: Other (religiously preoccupied) Suicidal Ideation: No Suicidal Plan: No Suicidal Intention: No Homicidal Ideation: No Homicidal Plan: No Homicidal Intention: No Insight: Poor Judgment: Poor Results Vitals/IOs Vital Signs Date Time Temp Pulse Resp B/P (MAP) Pulse Ox O2 Delivery O2 Flow Rate FiO2 10/11/17 05:37 97.6 68 16 122/70 (87) 98 Intake and Output 10/11/17 10/11/17 10/12/17 08:00 16:00 00:00 Intake Total 120 ml Balance 120 ml Assessment & Plan Problem List: (1) Schizophrenia ICD Codes: F20.9 - Schizophrenia, unspecified Assessment & Plan Estimated LOS: days patient continue psychotic the voices are diminishing and she is feeling better. Appears somewhat less paranoia This time Justification for Cont. Inpt. At this time patient decompensate and placed in the lower level of care Discharge Planning Hopefully patient may return to her jail Request HC Surrog/Guard Advoc?: No Problem Qualifiers (1) Schizophrenia: Qualified Codes: F20.0 - Paranoid schizophrenia Monster Ordonez MD Oct 11, 2017 15:36
[2017-10-11 18:26] VITALS: BP 120/59; PULSE 111; RESP 16; TEMP 98.6; O2SAT 99
[2017-10-11] MEDS: DIVALPROEX SODIUM E.R. 500 MG TAB PO SCH (21:07)
[2017-10-11] MEDS: cloZAPine 25 MG TAB PO SCH (21:08)
[2017-10-12 05:59] VITALS: BP 139/85; PULSE 106; RESP 17; TEMP 97.8; O2SAT 97
[2017-10-12] MEDS: glipiZIDE 10 MG TAB PO SCH ×2 (06:11→15:37)
[2017-10-12] MEDS: metroNIDAZOLE 500 MG TAB PO SCH ×3 (06:11→21:34)
[2017-10-12] MEDS: INSULIN ASPART SUPPLEMENTAL SCALE SQ SCH ×4 (08:00→21:00)
[2017-10-12] MEDS: PRAVASTATIN SOD 80 MG TAB PO SCH (08:41)
[2017-10-12] MEDS: DOCUSATE SODIUM 100 MG CAP PO SCH ×2 (08:41→21:35)
[2017-10-12] MEDS: amLODIPine BESYLATE 5 MG TAB PO SCH (08:41)
[2017-10-12] MEDS: LISINOPRIL 10 MG TAB PO SCH (08:42)
[2017-10-12] MEDS: PANTOPRAZOLE SOD 20 MG DELAYED RELEASE TAB PO SCH (08:43)
[2017-10-12] MEDS: METOPROLOL TARTRATE 25 MG TAB PO SCH ×2 (08:43→21:34)
[2017-10-12] MEDS: FERROUS SULFATE 325 MG (65 MG ELEMENTAL IRON) TAB PO SCH ×2 (08:43→18:14)
[2017-10-12] MEDS: cloZAPine 100 MG TAB PO SCH ×2 (08:43→21:33)
[2017-10-12] MEDS: DOXYCYCLINE HYCLATE 100 MG CAP PO SCH ×2 (08:44→21:33)
--- NOTE | 2017-10-12 12:53 | HHI.PYPN ---
Subjective Remarks Patient seen in her room with nurse Cesilia, chart review, patient compliant medication. Patient calm pleasant with me. Acknowledges auditory hallucinations but there is soft tissue less intrusive. Patient is also less distracted. Patient scheduled for [facility] [facility] tomorrow. At this time I feel patient has capacity to sign voluntary continue her treatment as indicated. Thus I will lift [employer] act allow the patient to sign voluntary Review of Systems Except as stated in HPI: all other systems reviewed are Neg Mental Status Examination Appearance: Appropriate Consciousness: Alert Orientation: Person, Place, Date/Time (partial), Situation Motor Activity: Normal gait Speech: Pressured, Slow Language: Adequate Fund of Knowledge: Inadequate Attention and Concentration: Other (internally preoccupied) Memory: Unremarkable (unable to assess) Mood: Sad, Irritable (mildly) Affect: Other Thought Process & Associations: Disorganized Thought Content: Bizarre thinking Hallucination Type: Auditory (possible), Tactile (vague in the vaginal area) Delusion Type: Other (religiously preoccupied) Suicidal Ideation: No Suicidal Plan: No Suicidal Intention: No Homicidal Ideation: No Homicidal Plan: No Homicidal Intention: No Insight: Poor Judgment: Poor Results Vitals/IOs Vital Signs Date Time Temp Pulse Resp B/P (MAP) Pulse Ox O2 Delivery O2 Flow Rate FiO2 10/12/17 05:59 97.8 106 17 139/85 (103) 97 Assessment & Plan Problem List: (1) Schizophrenia ICD Codes: F20.9 - Schizophrenia, unspecified Assessment & Plan Estimated LOS: days this time patient calm cooperative the auditory hallucinations are diminishing, she showing some insight and cooperation. At this time refill patient on the meets Perez criteria thus I'll lift Cloudy Days act allow the patient to sign voluntary Justification for Cont. Inpt. This time patient decompensated placed on the lower level of care Discharge Planning Return to her [facility] once stabilized Request HC Surrog/Guard Advoc?: No Problem Qualifiers (1) Schizophrenia: Qualified Codes: F20.0 - Paranoid schizophrenia Monster Ordonez MD Oct 12, 2017 12:53
[2017-10-12] MEDS ORDERED: ACETAMINOPHEN 500 MG CPLT PO PRN (13:00)
[2017-10-12 16:45] VITALS: BP 130/66; PULSE 114; RESP 18; TEMP 98.7; O2SAT 97
[2017-10-12] MEDS: IBUPROFEN 600 MG TAB PO PRN (16:52)
[2017-10-12] MEDS: cloZAPine 25 MG TAB PO SCH (21:34)
[2017-10-12] MEDS: DIVALPROEX SODIUM E.R. 500 MG TAB PO SCH (21:34)
[2017-10-13 05:38] VITALS: BP 128/70; PULSE 98; RESP 16; TEMP 97.8; O2SAT 97
[2017-10-13] MEDS: metroNIDAZOLE 500 MG TAB PO SCH ×3 (06:00→22:00)
[2017-10-13] MEDS: glipiZIDE 10 MG TAB PO SCH ×2 (06:27→16:49)
[2017-10-13] MEDS: INSULIN ASPART SUPPLEMENTAL SCALE SQ SCH ×4 (08:00→21:00)
[2017-10-13] MEDS: METOPROLOL TARTRATE 25 MG TAB PO SCH ×2 (08:33→21:00)
[2017-10-13] MEDS: PANTOPRAZOLE SOD 20 MG DELAYED RELEASE TAB PO SCH (08:33)
[2017-10-13] MEDS: cloZAPine 100 MG TAB PO SCH ×2 (08:33→21:00)
[2017-10-13] MEDS: DOCUSATE SODIUM 100 MG CAP PO SCH ×2 (08:33→21:00)
[2017-10-13] MEDS: DOXYCYCLINE HYCLATE 100 MG CAP PO SCH ×2 (08:34→21:00)
[2017-10-13] MEDS: FERROUS SULFATE 325 MG (65 MG ELEMENTAL IRON) TAB PO SCH ×2 (08:34→17:38)
[2017-10-13] MEDS: LISINOPRIL 10 MG TAB PO SCH (08:34)
[2017-10-13] MEDS: amLODIPine BESYLATE 5 MG TAB PO SCH (08:34)
[2017-10-13] MEDS: PRAVASTATIN SOD 80 MG TAB PO SCH (08:34)
--- NOTE | 2017-10-13 15:51 | HHI.PYPN ---
Subjective Remarks Patient seen and a room with medical student Gregory, chart review, patient discussed with nurse. Patient continues to isolate in room but no behavioral problems, she is calm cooperative with Miles the voices are just about on. Is excited about discharge tomorrow back to her [facility]. Review of Systems Except as stated in HPI: all other systems reviewed are Neg Mental Status Examination Appearance: Appropriate Consciousness: Alert Orientation: Person, Place, Date/Time (partial), Situation Motor Activity: Normal gait Speech: Pressured, Slow Language: Adequate Fund of Knowledge: Inadequate Attention and Concentration: Other (internally preoccupied) Memory: Unremarkable (unable to assess) Mood: Sad, Irritable (mildly) Affect: Other Thought Process & Associations: Disorganized Thought Content: Bizarre thinking Hallucination Type: Auditory (possible), Tactile (vague in the vaginal area) Delusion Type: Other (religiously preoccupied) Suicidal Ideation: No Suicidal Plan: No Suicidal Intention: No Homicidal Ideation: No Homicidal Plan: No Homicidal Intention: No Insight: Poor Judgment: Poor Results Vitals/IOs Vital Signs Date Time Temp Pulse Resp B/P (MAP) Pulse Ox O2 Delivery O2 Flow Rate FiO2 10/13/17 05:38 97.8 98 16 128/70 (89) 97 Assessment & Plan Problem List: (1) Schizophrenia ICD Codes: F20.9 - Schizophrenia, unspecified Assessment & Plan Estimated LOS: days patient continues somewhat psychotic but softer. She is improved I feel at this time she is quite near her baseline. Thus will discharge patient tomorrow back to her [facility] follow-up mental health services in the community Justification for Cont. Inpt. At this time patient will decompensate have not placed him an appropriate level of care Discharge Planning Discharge tomorrow to [facility] Request HC Surrog/Guard Advoc?: No Problem Qualifiers (1) Schizophrenia: Qualified Codes: F20.0 - Paranoid schizophrenia Monster Ordonez MD Oct 13, 2017 15:51
[2017-10-13 17:04] VITALS: BP 126/70; PULSE 107; RESP 17; TEMP 97.4; O2SAT 99
[2017-10-13] MEDS: cloZAPine 25 MG TAB PO SCH (21:00)
[2017-10-13] MEDS: DIVALPROEX SODIUM E.R. 500 MG TAB PO SCH (21:00)
[2017-10-14 05:53] VITALS: BP 120/64; PULSE 82; RESP 17; TEMP 97.4; O2SAT 96
[2017-10-14] MEDS: metroNIDAZOLE 500 MG TAB PO SCH ×2 (06:00→13:46)
[2017-10-14] MEDS: glipiZIDE 10 MG TAB PO SCH ×2 (06:25→17:11)
[2017-10-14] MEDS: INSULIN ASPART SUPPLEMENTAL SCALE SQ SCH ×3 (08:00→16:33)
[2017-10-14] MEDS: PANTOPRAZOLE SOD 20 MG DELAYED RELEASE TAB PO SCH (09:07)
[2017-10-14] MEDS: amLODIPine BESYLATE 5 MG TAB PO SCH (09:08)
[2017-10-14] MEDS: cloZAPine 100 MG TAB PO SCH (09:08)
[2017-10-14] MEDS: DOCUSATE SODIUM 100 MG CAP PO SCH (09:08)
[2017-10-14] MEDS: DOXYCYCLINE HYCLATE 100 MG CAP PO SCH (09:08)
[2017-10-14] MEDS: METOPROLOL TARTRATE 25 MG TAB PO SCH (09:08)
[2017-10-14] MEDS: PRAVASTATIN SOD 80 MG TAB PO SCH (09:08)
[2017-10-14] MEDS: LISINOPRIL 10 MG TAB PO SCH (09:09)
[2017-10-14] MEDS: FERROUS SULFATE 325 MG (65 MG ELEMENTAL IRON) TAB PO SCH ×2 (09:09→17:11)
[2017-10-14] MEDS: IBUPROFEN 600 MG TAB PO PRN (09:13)
[2017-10-14] MEDS ORDERED: CLOZ25TA PO (11:14)
[2017-10-14] MEDS ORDERED: LISI10TA3 PO (11:14)
[2017-10-14] MEDS ORDERED: METO25TA3 PO (11:14)
[2017-10-14] MEDS ORDERED: METR-1 PO (11:14)
[2017-10-14] MEDS ORDERED: ASPI81CH6 CHEW (11:14)
[2017-10-14] MEDS ORDERED: FERR325T18 PO (11:14)
[2017-10-14] MEDS ORDERED: PANT20 PO (11:14)
[2017-10-14] MEDS ORDERED: DEPA500T3 PO (11:14)
[2017-10-14] MEDS ORDERED: CLOZ200T PO (11:14)
[2017-10-14] MEDS ORDERED: GLIP10TA6 PO (11:14)
[2017-10-14] MEDS ORDERED: COLA100C5 PO (11:14)
[2017-10-14] MEDS ORDERED: AMLO5 PO (11:14)
[2017-10-14] MEDS ORDERED: PRAV80TA2 PO (11:14)
--- NOTE | 2017-10-14 11:23 | HHI.DS ---
Psychiatry Discharge Summary Inpatient Psychiatric care?: Yes Advance Directive: No Reason Not Provided: not interested Mental Health AdvanceDirective: No Health Care Proxy: No Admission Admission Date Oct 04, 2017 at 18:50 Admission Diagnosis: (1) Schizophrenia ICD Code: F20.9 - Schizophrenia, unspecified Brief History Patient is a 57-year-old Afro-[place]ian female well known to us from multiple prior contacts comes here under [employer] act signed by Dr. velasquez [facility] dated October 03, 2017 at 2030 p.m. the document reviewed essentially stating patient has been noncompliant with medications for 4 days she is hallucinating and delusional and paranoid patient disheveled and agitated in the emergency department patient seen screened in the emergency department urine toxicology negative there was both Depakote blood level drawn. Review of our EMR shows patient has had contact with us related to her mental illness going back to 2001. At the present time patient standing in the morrow, present with me or family practice resident Rosa, nurse practitioner Misty and nurse Arben. Patient showing significant psychosis with auditory hallucinations of various voices mainly spiritual. But also of her "daddy" there may be visual components related to this also. There may be also tactile components complaining of itching pain and sensations in her "booty". She acknowledges noncompliance with medication that the voices are telling her not to take the medicine. She also states that she has been using some alcohol and marijuana. Though urine toxicology was negative for blood alcohol level was negative. At this time patient meets criteria for involuntary psychiatric hospital position of the [employer] act. I will do first opinion request second opinion. Left which has capacity to sign for medications.. Will hospitalist consult was also suggests complaining some vaginal discharge. Hopeless. Fairly short stay and we can return her to her residential The patient is a 57 years old woman, with psychiatric history of schizophrenia, was known by this service, multiple psychiatric admissions, brought to the hospital on the Perez act due to psychotic decompensation in the context of noncompliance with psychotropics. She was consulted to me for second opinion. On psychiatric evaluation the patient is cooperative, but guarded and paranoid. She says that she has been hiding inside her room because there are ghost and his periods of evil in [place]. She says that is time to eat, but god has told her to refuse food in [place]. She reports hearing voices of God, her father, in good spirits. During my evaluation patient is quite disorganized, very religiously preoccupied, talking to herself , but she is redirectable, not agitated, not aggressive. Tobacco Use In Past 30 Days: No Tobacco Past 30 Days Alcohol Use: Never Hospital Course Patient's hospital course was low, patient's initial psychosis paranoia vigilance did persist for a while. She isolated muscle time in her room. Did acknowledge the auditory hallucinations. I was somewhat christianity nature. Also some somatic complaints about pain around her "boutique" that appear she did have a vaginal discharge has been treated above medical service. However with adjustments of the medication patient's auditory hallucinations have markedly diminished. Psoas her paranoia and irritability. She has become calm and pleasant with me. She has been consistent over the past few days threatening to return to her residential. Acknowledging need to be cooperative and tolerant in that facility to be compliant with the medication seventh of mental health follow-up. Thus at the present time I feel patient reached maximum benefit of this hospitalization to be discharged today to a residential follow-up services through that facility through [facility] act Results Blood Pressure 120 / 64 Vital Signs Date Time Temp Pulse Resp B/P (MAP) Pulse Ox O2 Delivery O2 Flow Rate FiO2 10/14/17 05:53 97.4 82 17 120/64 (82) 96 Laboratory Results Test 10/05/17 07:58 10/09/17 09:40 Cholesterol Level 167 MG/DL (120-200) HDL Cholesterol 46.9 MG/DL (40.0-60.0) Hemoglobin A1c 7.3 % (4.3-6.0) LDL Cholesterol 102 MG/DL (0-99) Triglycerides Level 92 MG/DL (42-150) Valproic Acid (Depakene) Level 89 MCG/ML (50-100) Summary of Procedures None done Pending results at discharge: No Medications # of Antipsychotic meds at D/C: 2 Appropriate >1 Antipsych meds?: 3 Approp Antipsych med options 1 - Minimum of three failed multiple trials of monotherapy. 2 - Documented plan to taper to monotherapy due to previous use of multiple meds OR cross-taper in progress at D/C. 3 - Documentation of augmentation of Clozapine. 4 - Justification other than those listed in allowable values 1-3, document here : Discharge Discharge Date: Oct 14, 2017 Discharge Diagnosis: (1) Schizophrenia Diagnosis: Principal ICD Code: F20.9 - Schizophrenia, unspecified Pt Condition on Discharge: Stable Discharge Disposition: ACLF/[facility] Discharge Instructions Diet Instructions: As Tolerated, No Restrictions Activities you can perform: Regular-No Restrictions Scheduled Appointment: [facility] Discharge Time > 30 minutes Mental Status Examination Appearance: Appropriate Consciousness: Alert Orientation: Person, Place, Date/Time (partial), Situation Motor Activity: Normal gait Speech: Pressured, Slow Language: Adequate Fund of Knowledge: Inadequate Attention and Concentration: Other (internally preoccupied) Memory: Unremarkable (unable to assess) Mood: Sad, Irritable (mildly) Affect: Other Thought Process & Associations: Disorganized Thought Content: Bizarre thinking Hallucination Type: Auditory (possible), Tactile (vague in the vaginal area) Delusion Type: Other (religiously preoccupied) Suicidal Ideation: No Suicidal Plan: No Suicidal Intention: No Homicidal Ideation: No Homicidal Plan: No Homicidal Intention: No Insight: Poor Judgment: Poor Discharge/Advance Care Plan Health Problems: (1) Schizophrenia Goals to promote your health * To prevent worsening of your condition and complications * To maintain your health at the optimal level Directions to meet your goals Take your medications as prescribed Follow your dietary instruction Follow activity as directed Keep your appointments as scheduled Take your immunizations and boosters as scheduled If your symptoms worsen call your PCP, if no PCP go to Urgent Care Center or Emergency Room For 21/03 questions related to your inpatient stay or results of tests pending at discharge, please contact Dr. Monster Ordonez at Smoking is Dangerous to Your Health. Avoid second hand smoking Problem Qualifiers (1) Schizophrenia: Qualified Codes: F20.0 - Paranoid schizophrenia Monster Ordonez MD Oct 14, 2017 11:23
== END 2017-10-14 18:30 | DRG 885 ==
LOC: NEPD 19:23 → NEDA 10-04 18:50 → H260 10-04 18:57
PROVIDERS: ADMIT Psychiatry & Neurology Psychiatry; ATTEND Psychiatry & Neurology Psychiatry
DX: F20.0 Paranoid schizophrenia (principal); E11.9 Type 2 diabetes mellitus without complications; I10 Essential (primary) hypertension; E78.5 Hyperlipidemia, unspecified; J44.9 Chronic obstructive pulmonary disease, unspecified; I25.10 Atherosclerotic heart disease of native coronary artery without angina pectoris; R00.0 Tachycardia, unspecified; N95.2 Postmenopausal atrophic vaginitis; K62.89 Other specified diseases of anus and rectum; N93.9 Abnormal uterine and vaginal bleeding, unspecified; N76.0 Acute vaginitis; E66.9 Obesity, unspecified; F12.90 Cannabis use, unspecified, uncomplicated; F14.90 Cocaine use, unspecified, uncomplicated; F17.210 Nicotine dependence, cigarettes, uncomplicated; Z68.39 Body mass index [BMI] 39.0-39.9, adult; Z79.84 Long term (current) use of oral hypoglycemic drugs; Z88.0 Allergy status to penicillin; Z88.6 Allergy status to analgesic agent; Z91.14 Patient's other noncompliance with medication regimen
CPT/HCPCS: 80048; 80053; 80061; 80164; 80307; 81001; 82948; 83036; 85025; 93005; 96372; J1630; J1815; J2060; Q0163